=== PATIENT | female | born 1970 | race Hispanic/Latino ===

== ENCOUNTER 2018-06-21 19:52 | Emergency (ER) | payer MEDICARE ==
[~2018-06-21] VITALS: Ht 154.9 cm; Wt 60.8 kg
[~2018-06-21 19:52] MED LIST: CYMBALTA; LITHIUM; REYATAZ; TRAZADONE; TRUVADA; [UNRECOGNIZED DRUG - OTHER]
--- OUTSIDE RECORDS SUMMARY | 2018-06-21 19:55 | XMS REPORT | Continuity of Care Document ---
Author Author [facility] Address Unknown Phone Unavailable Problems Problem Status Onset Date Classification Date Reported Comments Source 789.0 - ABDOMINAL PAIN Active 06/12/2012 [facility] [place] 625.9 - FEM GENITAL SYM Active 03/31/2012 [facility] V76.12 - SCREEN MAMMOGRA Active 03/27/2012 [facility] [place] Medications Medication Details Route Status Patient Instructions Ordering Provider Order Date Source Allergies, Adverse Reactions, Alerts Substance Category Reaction Severity Reaction type Status Date Reported Comments Source Immunizations Immunization Date Given Site Status Last Updated Comments Source Results Order Name Results Value Reference Range Date Interpretation Comments Source Digital Mammo Screening Rudi MA Digital Mammo Screening Rudi MA - DIGITAL MAMMO SCREENING RUDI MA BILATERAL DIGITAL SCREENING MAMMOGRAM WITH CAD: 06/25/2013 CLINICAL: Routine. Current study was evaluated with a Computer Aided Detection (CAD) system. Comparison is made to exam dated: 03/31/2012 mammogram - [facility]. The tissue of both breasts is heterogeneously dense, which could obscure detection of small masses. No significant masses, calcifications, or other findings are seen in either breast. There has been no significant interval change. IMPRESSION: NEGATIVE There is no mammographic evidence of malignancy. A screening mammogram in one year is recommended. Dr. Martha Patino D.O. ht/penrad:06/25/2013 14:34:09 Photoresist Contact Printer: Maggie IRBY(R)(M), [facility] This exam was dictated and interpreted by [id number] for SCARLET Flannery. letter sent: Normal exam Mammogram BI-RADS: 1 Negative 06/25/2013 - - Read by: Martha Patino Dictated Date/time: 06/25/13 14:34 Electronically Signed by: Martha Patino , 06/25/13 14:34 FINAL REPORT [facility] Sy Spine sacrum AP and Lat Spine sacrum AP and Lat SACRUM SERIES CLINICAL HISTORY: Sacral pain. COMPARISON IMAGIN06/22/2013 lumbar spine radiography. FINDINGS: Two views were submitted for evaluation. Sacroiliac joints appear unremarkable. No fracture, dislocation, or radiopaque foreign body is seen. Alignment appears maintained. Soft tissues are within normal limits. IMPRESSION: No significant abnormality. 06/22/2013 - - Read by: Lambert Mario Dictated Date/time: 06/22/13 14:01 Electronically Signed by: Lambert Mario MD 06/22/13 14:01 FINAL REPORT REG[facility] Sy Spine lumbar 2 or 3 views Spine lumbar 2 or 3 views LUMBAR SPINE SERIES CLINICAL HISTORY: 721.3 COMPARISON IMAGING: None. FINDINGS: 2 views of the lumbar spine were obtained. There are no significant degenerative changes. Vertebral body heights and alignment are maintained. There is suggestion of bilateral L5 pars defects. However this cannot be confirmed without oblique views. No fracture or subluxation is seen. Soft tissues are grossly unremarkable. IMPRESSION: Suggestion of bilateral L5 pars defect. Recommend CT or MRI for further evaluation. 06/22/2013 - - Read by: Martha Patino Dictated Date/time: 06/22/13 13:49 Electronically Signed by: Martha Patino DO 06/22/13 13:50 FINAL REPORT REG[facility] Sy Vital Signs Vital Sign Value Date Comments Source Encounters Location Location Details Encounter Type Encounter Number Reason For Visit Attending Provider ADM Date DC Date Status Source OD [id number] V76.12 - SCREEN MAMMOGRA MATTHEW VAZQUEZRIA 03/31/2012 Active [place] [id number] 625.9 - FEM GENITAL SYM MATTHEW MARGO Cancel AMYD [facility] OD [id number] 789.0 - ABDOMINAL PAIN MATTHEW MARGO Cancel [facility] Procedures Procedure Code Date Perfomer Comments Source
--- OUTSIDE RECORDS SUMMARY | 2018-06-21 19:55 | XMS REPORT ---
Author Author [facility] Address Unknown Phone Unavailable Care Team Providers Care Tanbark Peeler Name Role Phone Unavailable Unavailable Payers Payer Name Policy Type Policy Number Effective Date Expiration Date Problems This patient has no known problems. Allergies, Adverse Reactions, Alerts Allergy Name Allergy Type Status Severity Reaction(s) Onset Date Inactive Date Treating Clinician Comments hydrocodone bit DA Active RI 2018-04-21 00:00:00 Penicillins DA Active RI 2018-04-21 00:00:00 morphine DA Active RI 2018-04-21 00:00:00 trimethoprim DA Active MO 2018-04-21 00:00:00 hydrocodone bit DA Active RI 2017-11-09 00:00:00 Penicillins DA Active RI 2017-11-09 00:00:00 morphine DA Active RI 2017-11-09 00:00:00 trimethoprim DA Active MO 2017-11-09 00:00:00 Medications This patient has no known medications.
[2018-06-21] MEDS ORDERED: LEVOFLOXACIN 750MG/DEXTROSE PREMIX BAG 150ML IV ONE (20:30)
[2018-06-21] MEDS ORDERED: KETOROLAC TROMETHAMINE 30 MG/ML VIAL IV STA (20:33)
[2018-06-21] MEDS ORDERED: ZOFRAN8 MG PO (23:05)
[2018-06-21] MEDS ORDERED: LEVAQUIN500 MG PO (23:05)
== END 2018-06-21 23:25 | disposition home or self-care (01) ==
LOC: ER 19:52 → FSED 23:25
DX: R30.0 Dysuria (principal); R11.2 Nausea with vomiting, unspecified; R10.9 Unspecified abdominal pain; M54.5 Low back pain; N10 Acute pyelonephritis; D64.9 Anemia, unspecified
CPT/HCPCS: 80053; 81003; 85025; 87086; 99283

== ENCOUNTER 2018-09-09 21:28 | Emergency (ER) | payer MEDICARE ==
[~2018-09-09] VITALS: Ht 154.9 cm; Wt 60.8 kg
[~2018-09-09 21:28] MED LIST changes: +LEVAQUIN500 MG PO; +ZOFRAN8 MG PO
--- OUTSIDE RECORDS SUMMARY | 2018-09-09 21:31 | XMS REPORT | Continuity of Care Document ---
Author Author [facility] Interface Address Unknown Phone Unavailable Problems Problem Status Onset Date Classification Date Reported Comments Source 789.0 - ABDOMINAL PAIN Active 06/12/2012 [facility] [place] 625.9 - FEM GENITAL SYM Active 03/31/2012 [facility] [place] V76.12 - SCREEN MAMMOGRA Active 03/27/2012 [facility] [place] Medications Medication Details Route Status Patient Instructions [...] made to exam dated: 03/31/2012 mammogram - [facility]. The tissue of both breasts is heterogeneously dense, which could obscure detection of small masses. No significant masses, calcifications, or other findings are seen in either breast. There has been no significant interval change. IMPRESSION: NEGATIVE There is no mammographic evidence of malignancy. A screening mammogram in one year is recommended. Dr. Martha Patino D.O. ht/penrad:06/25/2013 14:34:09 Permanent Mold Supervisor: Maggie IRBY(R)(M), [facility] This exam was dictated and interpreted by [id number] for SCARLET Flannery. letter sent: Normal exam Mammogram BI-RADS: 1 Negative 06/25/2013 - - Read by: Martha Patino Dictated Date/time: 06/25/13 14:34 Electronically Signed by: Martha Patino , 06/25/13 14:34 FINAL [place] Spine lumbar 2 or 3 views Spine [...] DO 06/22/13 13:50 FINAL REPORT REGINE Sy Spine sacrum AP [...] Mario MD 06/22/13 14:01 FINAL REPORT REGINE Josea Vital Signs Vital Sign Value Date Comments Source Encounters Location Location Details Encounter Type Encounter Number Reason For Visit Attending Provider ADM Date DC Date Status Source OD [id number] V76.12 - SCREEN MAMMOGRA MATTHEW VAZQUEZRIA 03/31/2012 Active AMYD [place] OD [id number] 789.0 - ABDOMINAL PAIN MATTHEW MARGO Cancel [facility] [place] OD [id number] 625.9 - FEM GENITAL SYM MATTHEW MARGO Cancel [facility] [place] Procedures Procedure Code Date Perfomer Comments Source
[2018-09-09] MEDS ORDERED: KETOROLAC TROMETHAMINE 30 MG/ML VIAL IV STA (21:50)
[2018-09-09] MEDS ORDERED: ONDANSETRON HCL INJ 2MG/ML 2ML 2 MG/ML VIAL IV STA (21:50)
[2018-09-09] MEDS ORDERED: NAPROSYN500 MG PO (21:57)
[2018-09-09] MEDS ORDERED: ONDANSETRON ODT8 MG PO (21:57)
[2018-09-09] MEDS ORDERED: SODIUM CHLORIDE 0.9% 1000ML 1,000 ML IV SCH (22:00)
[2018-09-09] MEDS ORDERED: BACTRIM DS TAB1 EACH PO (22:18)
[2018-09-09] MEDS ORDERED: CIPRO500 MG PO (22:22)
[2018-09-09] MEDS ORDERED: KEFLEX500 MG PO (22:23)
[2018-09-09] MEDS ORDERED: CEFTRIAXONE SOD 1 GM/NS 50 ML 50 ML IV ONE (22:30)
--- NOTE | 2018-09-09 22:43 | Diagnostic Imaging Report ---
EXAMINATION: CT of the abdomen and pelvis without contrast. TECHNIQUE: Spiral CT images of the abdomen and pelvis were performed from the lung bases to the lesser trochanters. No intravenous contrast was given per renal stone protocol. Coronal and sagittal reformatted images were obtained. COMPARISON: None. CLINICAL HISTORY:Body pain, can't urinate, right flank pain, nausea and vomiting DISCUSSION: ABSENCE OF INTRAVENOUS CONTRAST DECREASES SENSITIVITY FOR DETECTION OF FOCAL LESIONS AND VASCULAR PATHOLOGY. ABDOMEN/PELVIS: LOWER THORAX: Unremarkable. HEPATOBILIARY: Mild hepatomegaly, measuring 18.0 cm in the right mid clavicle line. Normal contour. No focal lesions. No intra or extrahepatic biliary ductal dilation. GALLBLADDER: Cholecystectomy clips. SPLEEN: No splenomegaly. PANCREAS: No focal masses or ductal dilatation. ADRENALS: No adrenal nodules. KIDNEYS/URETERS: No renal, ureteral or bladder calculi. No hydronephrosis or obstruction. No renal contour abnormalities or significant perinephric stranding. PELVIC ORGANS/BLADDER: Bladder is unremarkable, without focal lesions, wall thickening or bladder stones. Uterus unremarkable. No adnexal masses. PERITONEUM/RETROPERITONEUM: No free air or fluid. LYMPH NODES: No intra-abdominal,retroperitoneal, pelvic or inguinal lymphadenopathy. VESSELS: Minimal atherosclerotic calcification of the distal aorta at the bifurcation GI TRACT: No bowel dilation or evidence of obstruction. No pericolonic inflammatory changes. Appendix is well identified and normal in caliber. Stomach is unremarkable. BONES AND SOFT TISSUES: No aggressive lytic lesions. Soft tissues are grossly unremarkable. IMPRESSION: 1. No renal, ureteral or bladder calculi, hydronephrosis or obstruction. 2. Mild hepatomegaly. No focal lesions Signed by: Dr. Geronimo Ibarra M.D. on 09/09/2018 10:39 PM
== END 2018-09-09 23:12 | disposition home or self-care (01) ==
LOC: FSED 21:28
DX: M54.5 Low back pain (principal); R11.2 Nausea with vomiting, unspecified; N10 Acute pyelonephritis; B20 Human immunodeficiency virus [HIV] disease
CPT/HCPCS: 74176; 80053; 81003; 85025; 87086; 99284

== ENCOUNTER → 2019-01-09 | Outpatient (CLI) | payer MEDICARE ==
[~2019-01-09] MED LIST changes: +BACTRIM DS TAB1 EACH PO; +CIPRO500 MG PO; +KEFLEX500 MG PO; +NAPROSYN500 MG PO; +ONDANSETRON ODT8 MG PO
--- NOTE | 2019-01-09 16:33 | Diagnostic Imaging Report ---
Lumbar spine series, 5 views. History: Lumbar radiculopathy. Comparison: None available. Discussion: The paraspinal soft tissues are unremarkable. The alignment of the lumbar spine is normal. There is no evidence of fracture, spondylolisthesis, or spondylolysis. L5 spina bifida occulta is noted. Surgical clips are noted in the right upper quadrant abdomen. There is mild disc space narrowing at L5-S1. The remaining intervertebral disc spaces are within normal limits. 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 No acute lumbar spine abnormality. Signed by: Kris Belcher on 01/09/2019 4:30 PM
--- NOTE | 2019-01-09 16:35 | Diagnostic Imaging Report ---
Sacrum, 2 views. History: Lumbar radiculopathy. Findings: The soft tissues are normal. Bone mineralization is normal. There is no evidence of fracture or dislocation. There are no lytic or sclerotic lesions. The SI joints are within normal limits. IMPRESSION: Normal sacral series. Signed by: Kris Belcher on 01/09/2019 4:32 PM
== END ==
LOC: RAD 15:18
PROVIDERS: ATTEND Internal Medicine
DX: M47.27 Other spondylosis with radiculopathy, lumbosacral region (principal)
CPT/HCPCS: 72110; 72220

== ENCOUNTER 2019-04-25 22:16 | Emergency (ER) | payer MEDICARE ==
[~2019-04-25] VITALS: Ht 154.9 cm; Wt 60.8 kg
--- NOTE | 2019-04-25 23:46 | Diagnostic Imaging Report ---
EXAMINATION: CHEST 2 VIEWS INDICATION: Cough, throat pain COMPARISON: None FINDINGS: PA and lateral views TUBES and LINES: None. LUNGS: Lungs are well inflated. Lungs are clear. No consolidations. Mild central bronchial wall thickening. PLEURA: No pleural effusion or pneumothorax. HEART AND MEDIASTINUM: The cardiomediastinal silhouette is unremarkable. BONES AND SOFT TISSUES: No acute osseous lesion. Soft tissues are unremarkable. UPPER ABDOMEN: No free air under the diaphragm. Cholecystectomy clips in the right upper quadrant. IMPRESSION: Findings can be seen with bronchitis. Signed by: Will Yen DO on 04/25/2019 11:43 PM
--- NOTE | 2019-04-25 23:47 | Diagnostic Imaging Report ---
X-RAY SOFT TISSUE NECK-2 VIEWS HISTORY: Pain. COMPARISON: None. FINDINGS: Airway: Patent. Retropharyngeal soft tissues: Not thickened. Epiglottis: Not thickened. Adenoids: Within normal limits. Superficial neck soft tissues: Normal. Osseous structures: No fractures or dislocations. Upper thorax: The upper lungs and upper mediastinum are within normal limits. No foreign body identified. IMPRESSION: No acute radiographic abnormality. Signed by: Will Yen DO on 04/25/2019 11:44 PM
[2019-04-26 00:04] VITALS: BP 139/87
[2019-04-26] MEDS ORDERED: ONDANSETRON HCL 4 MG ORAL DISINTEGRATING TAB ONE (00:08)
[2019-04-26] MEDS ORDERED: ONDANSETRON HCL 4 MG ORAL DISINTEGRATING TAB PO ONE (00:15)
== END 2019-04-26 00:12 | disposition home or self-care (01) ==
LOC: ER 22:16
DX: J20.9 Acute bronchitis, unspecified (principal); Z21 Asymptomatic human immunodeficiency virus [HIV] infection status; F43.10 Post-traumatic stress disorder, unspecified; F17.200 Nicotine dependence, unspecified, uncomplicated; Z88.6 Allergy status to analgesic agent; Z88.3 Allergy status to other anti-infective agents; Z88.5 Allergy status to narcotic agent; Z88.0 Allergy status to penicillin; Z88.2 Allergy status to sulfonamides
CPT/HCPCS: 70360; 71046; 99283; Q0162

== ENCOUNTER 2020-02-09 16:35 | Emergency (ER) | payer MEDICARE, OTHER ==
[~2020-02-09] VITALS: Ht 154.9 cm; Wt 60.8 kg
--- NOTE | 2020-02-09 17:03 | Emergency Department Note ---
History of Present Illnes History of Present Illness Chief Complaint: Genitourinary History of Present Illness This is a 49 year old female Chief Complaint Comment small drops of urine passing. see's dr nance (urologist?) pt states last bm yesterday. pt states hx of urine retention and kidney stones. states sent by her urologist. pt states n/v. vomitting today 1 episode. burning with urination hiv +. Arrival Mode: Car Bridge Tender Required: No Onset (how long ago): week(s) (1) Location: Bladder Quality: Fullness Radiation: Reports non-radiation Severity: moderate Onset quality: gradual Duration (how long): week(s) Timing of current episode: constant Progression: worsening Chronicity: recurrent Context: Denies recent illness Relieving factors: none Exacerbating factors: none Associated symptoms: Reports denies other symptoms Past Medical/Family History Physician Review I have reviewed the patient's past medical and family history. Any updates have been documented here. Past Medical History Recent Fever: No Clinical Suspicion of Infectio: No New/Unexplained Change in Ment: No Past Medical History: UTI's, HIV, Other Mental Illness Other Medical History: HIV PTSD Past Surgical History: Other Surgery: LITHOTRIPSY, COLON BIOPSY, X3 Other Last Tetanus: UTD Review of Systems Review of Systems Constitutional: Reports no symptoms EENTM: Reports no symptoms Cardiovascular: Reports no symptoms Respiratory: Reports no symptoms Gastrointestinal: Reports no symptoms Genitourinary: Reports as per HPI, Reports frequency, Reports other (Difficulty urinating) Musculoskeletal: Reports no symptoms Integumentary: Reports no symptoms Neurological: Reports no symptoms Psychological: Reports no symptoms Endocrine: Reports no symptoms Hematological/Lymphatic: Reports no symptoms Physical Exam Related Data Allergies: Coded Allergies: acetaminophen (Verified Allergy, Severe, HIVES, 07/20/19) hydrocodone (Verified Allergy, Severe, HIVES, 07/20/19) metronidazole (Verified Allergy, Intermediate, 07/20/19) sulfamethoxazole (Verified Allergy, Intermediate, 07/20/19) trimethoprim (Verified Allergy, Intermediate, 07/20/19) Penicillins (Verified Allergy, Unknown, 07/20/19) morphine (Verified Adverse Reaction, Unknown, VOMITING, CONSTIPATION, 07/20/19) Triage Vital Signs Vital Signs Date Time Temp Pulse Resp B/P (MAP) Pulse Ox O2 Delivery O2 Flow Rate FiO2 8/18/20 16:54 98.8 82 18 115/64 100 Room Air Vital signs reviewed: Yes Physical Exam CONSTITUTIONAL Constitutional: Present well-developed, Present well-nourished HENT HENT: Present normocephalic, Present atraumatic, Present oropharynx rell ar/moist, Present nose normal HENT L/R: Present left ext ear normal, Present right ext ear normal EYES Eyes: Reports PERRL, Reports conjunctivae normal NECK Neck: Present ROM normal PULMONARY Pulmonary: Present effort normal, Present breath sounds normal CARDIOVASCULAR Cardiovascular: Present regular rhythm, Present heart sounds normal, Present capillary refill normal, Present normal rate GASTROINTESTINAL Abdominal: Present soft, Present nontender, Present bowel sounds normal GENITOURINARY Genitourinary: Present exam deferred SKIN Skin: Present warm, Present dry MUSCULOSKELETAL Musculoskeletal: Present ROM normal NEUROLOGICAL Neurological: Present alert, Present oriented x 3, Present no gross motor or sensory deficits PSYCHOLOGICAL Psychological: Present mood/affect normal, Present judgement normal Results Laboratory Lab results reviewed: Yes Assessment & Plan Medical Decision Making MDM 49 y.o F presents for difficulty urinating. Patient able to void, VSS wihtin acceptable limits. UA shows UTI and will treat with omnicef. She has an appointment with her Urologist. She will f/u w/ Urology or return to ED for new/worsening symptoms. patient appropriate for DC. Reassessment Reassessment time: 07:34 Reassessment Well appearing, NAD Assessment & Plan Final Impression: (1) UTI (urinary tract infection) Depart Disposition: HOME, SELF-CARE Last Vital Signs Date Time Temp Pulse Resp B/P (MAP) Pulse Ox O2 Delivery O2 Flow Rate FiO2 02/09/20 16:54 98.8 82 18 115/64 100 Room Air Home Meds Active Scripts Ondansetron (ONDANSETRON ODT) 8 Mg Tab.rapdis, 4 MG PO TID PRN for NAUSEA for 3 Days, #10 Prov:YOBANI OWENS MD 09/09/18 Naproxen (NAPROSYN) 500 Mg Tablet, 1 TAB PO BID PRN for PAIN for 7 Days, #14 Prov:YOBANI OWENS MD 09/09/18 Ondansetron Hcl (ZOFRAN) 8 Mg Tablet, 8 MG PO Q8H PRN for NAUSEA AND VOMITING, #12 TBS 0 Refills Prov:LEONID UQEZADA MD 06/21/18 Levofloxacin (LEVAQUIN) 500 Mg Tablet, 750 MG PO DAILY, #7 TAB 0 Refills Prov:LEONID QUEZADA MD 06/21/18 Reported Medications [Reyataz] No Conflict Check 04/16/12 [Novir] No Conflict Check 04/16/12 [Truvada] No Conflict Check 04/16/12 [Trazadone] No Conflict Check 04/16/12 [Cymbalta] No Conflict Check 04/16/12 [Erlanger] No Conflict Check 04/16/12 Discontinued Scripts Ciprofloxacin Hcl (CIPRO) 500 Mg Tablet, 500 MG PO BID for 7 Days, #14 MG 0 Refills Prov:MELLISA TOBIN MD 02/09/20 MELLISA TOBIN MD Feb 09, 2020 17:02
[2020-02-09 17:31] LABS: BASOPHILS % 0.5 % (0.0-1.0); EOSINOPHILS # (AUTO) 0.3 (0.0-0.4); EOSINOPHILS % 5.2 % (0.0-6.0); HEMATOCRIT 34.1 % (34.2-44.1); HEMOGLOBIN 11.3 g/dL (12.0-16.0); LYMPHOCYTES # (AUTO) 1.5 (1.0-3.2); LYMPHOCYTES % 24.5 % (18.0-39.1); MEAN CORPUSCULAR HEMOGLOBIN 29.6 pg (28-32); MEAN CORPUSCULAR HGB CONC 33.1 g/dL (31-35); MEAN CORPUSCULAR VOLUME 89.3 fL (81-99); MONOCYTES # (AUTO) 0.3 (0.2-0.8); MONOCYTES % 5.5 % (4.4-11.3); NEUTROPHILS # (AUTO) 3.8 (2.1-6.9); NEUTROPHILS % 63.8 % (38.7-80.0); PLATELET COUNT 334 x10e3/uL (140-360); RED BLOOD COUNT 3.82 x10e6/uL (3.6-5.1); RED CELL DISTRIBUTION WIDTH 13.9 % (11.7-14.4)
[2020-02-09 17:49] LABS: CLARITY,URINE SL CLOUDY (CLEAR); COLOR,URINE YELLOW (YELLOW); NITRITE,URINE NEGATIVE (NEGATIVE)
[2020-02-09 17:50] LABS: BILIRUBIN,URINE NEGATIVE (NEGATIVE); KETONES,URINE NEGATIVE (NEGATIVE); LEUKOCYTE ESTERASE ,URINE MODERATE (NEGATIVE); PROTEIN,URINE DIPSTICK NEGATIVE (NEGATIVE); URINE UROBILINOGEN 0.2 mg/dL (0.2 - 1)
[2020-02-09 17:54] LABS: ALANINE AMINOTRANSFERASE 37 IU/L (0-55); ALBUMIN 4.2 g/dL (3.5-5.0); ALKALINE PHOSPHATASE 132 IU/L (40-150); ANION GAP 15.1 mmol/L (8-16); BLOOD UREA NITROGEN 20 mg/dL (7-26); BUN/CREATININE RATIO 24 (6-25); CALCIUM 9.8 mg/dL (8.4-10.2); CARBON DIOXIDE 24 mmol/L (22-29); CHLORIDE 103 mmol/L (98-107); CREATININE, SERUM 0.83 mg/dL (0.57-1.11); EST GLOMERULAR FILTRATION RATE > 60 ML/MIN (60-); GLUCOSE 89 mg/dL (74-118); POTASSIUM 4.1 mmol/L (3.5-5.1); SODIUM 138 mmol/L (136-145)
[2020-02-09 17:59] LABS: BACTERIA,URINE MODERATE /HPF; EPITHELIAL CELLS,URINE FEW /LPF; TRANSITIONAL EPI CELLS,URINE FEW; WBC,URINE (MAN) >50 /HPF (0-5)
[2020-02-09] MEDS ORDERED: KEFLEX500 MG PO (18:06)
[2020-02-09] MEDS ORDERED: CIPRO500 MG PO (18:08)
--- OUTSIDE RECORDS SUMMARY | 2020-02-09 18:53 | XMS REPORT | Continuity of Care Document ---
Author Author [facility] Address Unknown Phone Unavailable Care Team Providers Care Consulting Application Engineer Name Role Phone [employer] Unavailable Un available Problems Problem Status Onset Date Classification Date Reported Comments Source 789.0 - ABDOMINAL PAIN Active 06/12/2012 [facility] [place] 625.9 - FEM GENITAL SYM Active 03/31/2012 [facility] [place] V76.12 - SCREEN MAMMOGRA Active 03/27/2012 [facility] [place] Medications No Data Provided for This Section Allergies, Adverse Reactions, Alerts No Known Medication Allergies Immunizations No Data Provided for This Section Results No Data Provided for This Section Pathology Reports No Data Provided for This Section Diagnostic Reports Report Value Date Source Digital Mammo Screening Rudi MA - DIGITAL MAMMO SCREENING RUDI MA BILATERAL DIGITAL SCREENING MAMMOGRAM WITH CAD: 06/25/2013 CLINICAL: Routine. Current study was evaluated with a Computer Aided Detection (CAD) system. Comparison is made to exam dated: 03/31/2012 mammogram - [facility]. The tissue of both breasts is heterogeneously dense, which could obscure detection of small masses. No significant masses, calcifications, or other findings are seen in either breast. There has been no significant interval change. IMPRESSION: NEGATIVE There is no mammographic evidence of malignancy. A screening mammogram in one year is recommended. Dr. Martha Patino D.O. ht/penrad:06/25/2013 14:34:09 Diamond Cleaver: Maggie Ba RT(R)(M), [facility] This exam was dictated and interpreted by [id number] for SCARLET Flannery. letter sent: Normal exam Mammogram BI-RADS: 1 Negative 06/25/2013 SCARLET Sy Spine lumbar 2 or 3 views LUMB AR SPINE SERIES CLINICAL HISTORY: 721.3 COMPARISON IMAGING: None. FINDINGS: 2 views of the lumbar spine were obtaine d. There are no significant degenerative changes. Vertebral body heights and alignment are maintained. There is suggestion of bilateral L5 pars defects. However this cannot be confirmed without oblique views. No fracture or subluxation is seen. Soft tissues are grossly unremarkable. IMPRESSION: Suggestion of bilateral L5 pars defect. Recommend CT or MRI for further evaluation. 06/22/2013 [facility] [place] Spine sacrum AP and Lat SACRUM SERIES CLINICAL HISTORY: Sacral pain. COMPARISON IMAGIN06/22/2013 lumbar spine radiography. FINDINGS: Two views were submitted for evaluation. Sacroiliac joints appear unremarkable. No fracture, dislocation, or radiopaque foreign body is seen. Alignment appears maintained. Soft tissues are within normal limits. IMPRESSION: No significant abnormality. 06/22/2013 [facility] [place] Consultation Notes No Data Provided for This Section Discharge Summaries No Data Provided for This Section History and Physicals No Data Provided for This Section Vital Signs No Data Provided for This Section Encounters Location Location Details Encounter Type Encounter Number Reason For Visit Attending Provider ADM Date DC Date Status Source OD [id number] V76.12 - SCREEN MAMMOGRA MATTHEW MARGO 03/31/2012 Active [facility] [place] OD [id number] 625.9 - FEM GENITAL SYM MATTHEW MARGO Cancel [facility] [place] OD [id number] 789.0 - ABDOMINAL PAIN MATTHEW MARGO Cancel [facility] [place] Procedures No Data Provided for This Section Assessment and Plan No Data Provided for This Section Plan of Care No Data Provided for This Section Social History No Data Provided for This Section Family History No Data Provided for This Section Advance Directives No Data Provided for This Section Functional Status No Data Provided for This Section
--- OUTSIDE RECORDS SUMMARY | 2020-02-09 18:54 | XMS REPORT | Continuity of Care Document ---
Author Author [facility] t Organization [facility] Address [address] [place] [address] Phone Unavailable Care Team Providers Care Public Health Professor Name Role Phone Wale RECIO MD PCP EV RECINOS Attphys Unavailable Wale RECIO Attphys Unavailable Rodolfo OWENS Attphys Unavailable Payers Payer Name Policy Type Policy Number Effective Date Expiration Date S kesha Care Improvement Plus [id number] 2017 00:00:00 [facility] Hmo [id number] I [facility] [id number] 2017 00:00:00 [facility] Problems Condition Name Condition Details Condition Category Status Onset Date Resolution Date Last Treatment Date Treating Clinician Comments Source 789.0 - ABDOMINAL PAIN 789. 0 - ABDOMINAL PAIN Active 06/12/2012 [facility] [place] Diagnosis Active 2012-06-12 00:01:00 2012-08-20 11:53:00 [facility] 625.9 - FEM GENITAL SYM 625. 9 - FEM GENITAL SYM Active 03/31/2012 [facility] [place] Diagnosis Active 2012-03-31 00:01:00 2012-05-16 15:34:00 [facility] V76.12 - SCREEN MAMMOGRA V76. 12 - SCREEN MAMMOGRA Active 03/27/2012 [facility] [place] Diagnosis Active 2012-03-27 00:01:00 2012-03-31 14:55:00 [facility] Allergies, Adverse Reactions, Alerts Allergy Name Allergy Type Status Severity Reaction(s) Onset Date Inacti ve Date Treating Clinician Comments Source Penicillins DA Active 2019-07-22 00:00:00 [facility] morphine DA Active U 2019-07-22 00:00:00 [facility] hydrocodone DA Active 2019-07-22 00:00:00 [facility] acetaminophen DA Active 2019-07-22 00:00:00 [facility] sulfamethoxazole DA Active U 2019-07-22 00:00:00 [facility] trimethoprim DA Active U 2019-07-22 00:00:00 [facility] Penicillin Allergy to Substance Active 2019-07-20 00:00:00 [facility] Morphine Propensity to adverse reactions Active VOMI TING, CONSTIPATION 2019-07-20 00:00:00 [facility] Hydrocodone Allergy to Substance Active Severe HIVES 2019-07-20 00:00:00 [facility] Acetaminophen Allergy to Substance Active Severe HIVES 2019-07-20 00 :00:00 [facility] Sulfamethoxazole Allergy to Substance Active Moderate 2019-06-25 7 00:00:00 [facility] Trimethoprim Allergy to Substance Active Moderate 2019-07-20 00:00 :00 [facility] Metronidazole Allergy to Substance Active Moderate 2019-07-20 00:0 0:00 [facility] nitrofurantoin DA Active LA 2019-05-26 00:00:00 [facility] hydrocodone bit DA Active [place] 2019-04-13 00:00:00 [facility] Penicillins DA Active [place] 2019-04-13 00:00:00 [facility] morphine DA Active [place] 2019-04-13 00:00:00 [facility] trimethoprim DA Active [place] 2019-04-13 00:00:00 [facility] hydrocodone bit DA Active [place] 2018-04-21 00:00:00 [facility] Penicillins DA Active [place] 2018-04-21 00:00:00 [facility] morphine DA Active [place] 2018-04-21 00:00:00 [facility] trimethoprim DA Active [place] 2018-04-21 00:00:00 [facility] hydrocodone DA Active [place] 2017-12-15 00:00:00 [facility] acetaminophen DA Active [place] 2017-12-15 00:00:00 [facility] sulfamethoxazole DA Active [place] 2017-12-15 00:00:00 [facility] Penicillins DA Active [place] 2017-12-15 00:00:00 [facility] trimethoprim DA Active [place] 2017-12-15 00:00:00 [facility] hydrocodone bit DA Active [place] 2017-11-09 00:00:00 [facility] Penicillins DA Active [place] 2017-11-09 00:00:00 [facility] morphine DA Active [place] 2017-11-09 00:00:00 [facility] trimethoprim DA Active [place] 2017-11-09 00:00:00 [facility] Medications Ordered Medication Name Filled Medication Name Start Date Stop Da te Current Medication? Ordering Clinician Indication Dosage Frequency Signature (SIG) Comments Components Source Cephalexin Monohydrate (Keflex) 500 Mg Capsule Cephale ronn Monohydrate (Keflex) 500 Mg Capsule 2018-09-09 00:00:00 Yes Yobani Owens [facility] 500 Three Times A Day [facility] Naproxen (Naprosyn) 500 Mg Tablet Naproxen (Naprosyn) 500 Mg Tablet 2018-09-09 00:00:00 Yes Yobani Owens Md 1 Twice A Day as needed for Pain [facility] Ondansetron (Ondansetron Odt) 8 Mg Tab.rapdis Ondanset john (Ondansetron Odt) 8 Mg Tab.rapdis 2018-09-09 00:00:00 Yes Yobani Owens Md 4 Three Times A Day as needed for Nausea [facility] Sulfamethoxazole/Trimethoprim (Bactrim Ds Tablet) 1 Ea ch Tablet, 1 Each Oral Sulfamethoxazole/Trimethoprim (Bactrim Ds Tablet) 1 Each Tablet, 1 Each Oral 2018-09-09 00:00:00 2018-09-09 00:00:00 No Yobani Owens Md 1 Twice A Day [facility] Levofloxacin (Levaquin) 500 Mg Tablet Levofloxacin (Levaquin ) 500 Mg Tablet 2018-06-21 00:00:00 Yes Main Harden Md [address] [facility] Ondansetron Hcl (Zofran) 8 Mg Tablet Ondansetron Hcl (Zofran ) 8 Mg Tablet 2018-06-21 00:00:00 Yes Main Harden [facility] 8 Every 8 Hours as needed for Nausea And Vomiting [facility] Cymbalta [facility] Yes [facility] [place] Yes [facility] Novir Novir Yes [facility] Reyataz Reyataz Yes [facility] Trazadone Trazadone Yes [facility] Truvada Truvada Yes [facility] Procedures Procedure Date / Time Performed Performing Clinician [facility] e Computed tomography of abdomen and pelvis with contrast 2019 00:00:00 EV RECINOS [facility] X-ray of chest, two views 2019-04-25 00:00:00 EV RECINOS CH I [facility] Encounters Start Date/Time End Date/Time Encounter Type Admission Type Attendi [facility] Care Department Encounter ID Source 2019-07-20 11:36:00 2019-07-20 16:50:00 Departed Emergency Room 1 EV RECINOS [facility] [id number] [facility] 2019-04-25 22:16:00 2019-04-26 00:12:00 Departed Emergency Room 1 EV RECINOS [facility] [id number] [facility] 2019-01-09 15:18:00 2019-01-09 15:18:00 Registered Clinic 3 KITTY CRUZ [facility] [id number] [facility] 2018-09-09 21:28:00 2018-09-09 23:12:00 Departed Emergency Room 1 YOBANI OWENS [facility] [id number] [facility] 2018-06-21 19:52:00 2018-06-21 23:25:00 Departed Emergency Room [facility] [id number] [facility] Results Test Description Test Time Test Comments Results Result Comments Source STREPTOCOCCUS PCR SCREEN 2019-07-22 17:08:00 Test Item STREPTOCOCCUS DYSGALACTIAE (test code = STREPGC) NEGATIVE FOR G/C N EGATIVE STREPA MOLECULAR (test code = STREPAMOL) NEGATIVE FOR GRP A NEGATIV E - CT ABD PELVIS [id number] 16:20:00 Name: PRASANNA DAMIAN [facility] : 1970 Age/S: 49 / F [address] [facility] Unit #: [id number] Loc: [place] [address] Phys: Brandie Sher PAPER SPOOLER Acct: [id number] Dis Date: Status: REG ER PHONE #: [phone] Exam Date: 07/22/2019 [facility] FAX #: [phone] Reason: diffuse abdominal pain EXAMS: CPT CODE: [id number] CT ABD PELVIS W/CONT [id number] EXAM: CT of the abdomen and pelvis with contrast; INFORMATION: Diffuse abdominal pain; TECHNIQUE AND FINDINGS: CT dose reduction protocol; 2.5 mm axial scans. The liver is moderately enlarged and shows slightly decreased attenuation; no focal lesions. Status post cholecystectomy; no biliary dilatation. Pancreas, spleen, adrenal glands and kidneys are unremarkable; no hydronephrosis. No acute bowel abnormalities. No pelvic mass lesions. Lung bases are clear. IMPRESSION: 1. No acute abdominal or pelvic abnormalities. 2. Mild hepatomegaly and fatty infiltration of the liver. Location code: [facility] at 1620 Reported and signed by: Anthony Rice M.D. CC: Brandie Sher NP Technologist:Brina Nguyen RT(R); CRISTO Conroy CTDI: DLP: Trnscb Date/Time: 07/22/2019 (1619) [email or web address] Orig Print D/T: S: 07/22/2019 (7432) PAGE 1 Signed Report BASIC METABOLIC [id number] 15:17:00* Test Item Value Reference Range Interpretation Comments SODIUM (test code = NA) 136 mmol/L 136-145 N POTASSIUM (test code = K) 3.9 mmol/L 3.5-5.1 N CHLORIDE (test code = CL) 102.0 mmol/L 98-107 N CARBON DIOXIDE (test code = CO2) 28.0 mmol/L 21-32 N ANION GAP (test code = GAP) 9.9 10-20 L GLUCOSE (test code = GLU) 87 mg/dL 74-106 N BLOOD UREA NITROGEN (test code = BUN) 10 mg/dL 7-18 N GLOMERULAR FILTRATION RATE (test code = GFR) > 60 mL/min >=60 Estimated GFR by using Modified MDRD formula.Chronic kidney disease is defined as either kidney damageor GFR <60 mL/min/1.73 m2 for >3 months. CREATININE (test code = CREAT) 0.70 mg/dL 0.55-1.02 N Note change in reference range due to change in reagent. BUN/CREATININE RATIO (test code = BUN/CREA) 14.3 10-20 N CALCIUM (test code = CA) 9.3 mg/dL 8.5-10.1 N HEPATIC FUNCTION [id number] 15:17:00* Test Item Value Reference Range Interpretation Comments TOTAL PROTEIN (test code = PROT) 9.7 gram/dL 6.4-8.2 H ALBUMIN (test code = ALB) 4.3 g/dL 3.4-5.0 N GLOBULIN (test code = GLOB) 5.4 gram/dL 2.7-4.2 H ALBUMIN/GLOBULIN RATIO (test code = A/G) 0.8 0.75-1.50 N BILIRUBIN TOTAL (test code = BILT) 0.40 mg/dL 0.0-1.0 N BILIRUBIN DIRECT (test code = BILD) 0.11 mg/dL 0.0-0.20 N SGOT/AST (test code = AST) 116 IUnit/L 15-37 H SGPT/ALT (test code = ALT) 176 IUnit/L 12-78 H ALKALINE PHOSPHATASE TOTAL (test code = ALKP) 174 IUnit/L 45-117 H Note change in reference range due to change in reagent. [id number] 15:17:00* Test Item Value Reference Range Interpretation Comments LIPASE (test code = LIP) 191 U/L 73.0-393.0 N HCG SERUM [id number] 15:17:00* Test Item Value Reference Range Interpretation Comments HCG SERUM QUAL (test code = HCGQL) NEGATIVE NEGATIVE This HCGQL test is NOT applicable for MALE patients.Check with nurse about probable order error.If Tumor Marker Test needed, nurse should order test "HCGTU"(Test #550.38731) [id number] 15:17:00* Test Item Value Reference Range Interpretation Comments TROPONIN-I (test code = TROPI) <0.015 ng/mL 0-0.045 N BASIC METABOLIC [id number] 14:55:00* Test Item Value Reference Range Interpretation Comments SODIUM (test code = NA) mmol/L 136-145 POTASSIUM (test code = K) mmol/L 3.5-5.1 CHLORIDE (test code = CL) mmol/L 98-107 CARBON DIOXIDE (test code = CO2) mmol/L 21-32 ANION GAP (test code = GAP) 10-20 GLUCOSE (test code = GLU) mg/dL 74-106 BLOOD UREA NITROGEN (test code = BUN) mg/dL 7-18 GLOMERULAR FILTRATION RATE (test code = GFR) mL/min >=60 CREATININE (test code = CREAT) mg/dL 0.55-1.02 BUN/CREATININE RATIO (test code = BUN/CREA) 10-20 CALCIUM (test code = CA) mg/dL 8.5-10.1 HEPATIC FUNCTION [id number] 14:55:00* Test Item Value Reference Range Interpretation Comments TOTAL PROTEIN (test code = PROT) gram/dL 6.4-8.2 ALBUMIN (test code = ALB) g/dL 3.4-5.0 GLOBULIN (test code = GLOB) gram/dL 2.7-4.2 ALBUMIN/GLOBULIN RATIO (test code = A/G) 0.75-1.50 BILIRUBIN TOTAL (test code = BILT) mg/dL 0.0-1.0 BILIRUBIN DIRECT (test code = BILD) mg/dL 0.0-0.20 SGOT/AST (test code = AST) IUnit/L 15-37 SGPT/ALT (test code = ALT) IUnit/L 12-78 ALKALINE PHOSPHATASE TOTAL (test code = ALKP) IUnit/L 45-117 [id number] 14:55:00* Test Item Value Reference Range Interpretation Comments LIPASE (test code = LIP) U/L 73.0-393.0 HCG SERUM [id number] 14:55:00* Test Item Value Reference Range Interpretation Comments HCG SERUM QUAL (test code = HCGQL) NEGATIVE NEGATIVE This HCGQL test is NOT applicable for MALE patients.Check with nurse about probable order error.If Tumor Marker Test needed, nurse should order test "HCGTU"(Test #550.79332) [id number] 14:55:00* Test Item Value Reference Range Interpretation Comments TROPONIN-I (test code = TROPI) ng/mL 0-0.045 BASIC METABOLIC [id number] 14:55:00* Test Item Value Reference Range Interpretation Comments SODIUM (test code = NA) 136 mmol/L 136-145 N POTASSIUM (test code = K) 3.9 mmol/L 3.5-5.1 N CHLORIDE (test code = CL) 102.0 mmol/L 98-107 N CARBON DIOXIDE (test code = CO2) mmol/L 21-32 ANION GAP (test code = GAP) 10-20 GLUCOSE (test code = GLU) mg/dL 74-106 BLOOD UREA NITROGEN (test code = BUN) mg/dL 7-18 GLOMERULAR FILTRATION RATE (test code = GFR) mL/min >=60 CREATININE (test code = CREAT) mg/dL 0.55-1.02 BUN/CREATININE RATIO (test code = BUN/CREA) 10-20 CALCIUM (test code = CA) mg/dL 8.5-10.1 HEPATIC FUNCTION [id number] 14:55:00* Test Item Value Reference Range Interpretation Comments TOTAL PROTEIN (test code = PROT) gram/dL 6.4-8.2 ALBUMIN (test code = ALB) g/dL 3.4-5.0 GLOBULIN (test code = GLOB) gram/dL 2.7-4.2 ALBUMIN/GLOBULIN RATIO (test code = A/G) 0.75-1.50 BILIRUBIN TOTAL (test code = BILT) mg/dL 0.0-1.0 BILIRUBIN DIRECT (test code = BILD) mg/dL 0.0-0.20 SGOT/AST (test code = AST) IUnit/L 15-37 SGPT/ALT (test code = ALT) IUnit/L 12-78 ALKALINE PHOSPHATASE TOTAL (test code = ALKP) IUnit/L 45-117 [id number] 14:55:00* Test Item Value Reference Range Interpretation Comments LIPASE (test code = LIP) U/L 73.0-393.0 HCG SERUM [id number] 14:55:00* Test Item Value Reference Range Interpretation Comments HCG SERUM QUAL (test code = HCGQL) NEGATIVE NEGATIVE This HCGQL test is NOT applicable for MALE patients.Check with nurse about probable order error.If Tumor Marker Test needed, nurse should order test "HCGTU"(Test #550.42124) [id number] 14:55:00* Test Item Value Reference Range Interpretation Comments TROPONIN-I (test code = TROPI) ng/mL 0-0.045 MONO [id number] 14:53:00* Test Item Value Reference Range Interpretation Comments MONO SCREEN (test code = MONO) POSITIVE NEGATIVE A URINALYSIS [id number] 14:52:00* Test Item Value Reference Range Interpretation Comments UA COLOR (test code = COLU) Light-Yellow YELLOW UA APPEARANCE (test code = APPU) CLEAR CLEAR UA GLUCOSE DIPSTICK (test code = DGLUU) NEGATIVE mg/dL NEGATIVE UA BILIRUBIN DIPSTICK (test code = BILU) NEGATIVE mg/dL NEGATIVE UA KETONE DIPSTICK (test code = KETU) NEGATIVE mg/dL NEGATIVE UA SPECIFIC GRAVITY (test code = SGU) 1.008 1.001-1.035 UA BLOOD DIPSTICK (test code = DMITRIY) Negative mg/dL NEGATIVE UA PH DIPSTICK (test code = DEEPIKA) 6.5 5.0-8.0 UA PROTEIN DIPSTICK (test code = PROU) NEGATIVE mg/dL NEGATIVE UA UROBILINIOGEN DIPSTICK (test code = URO) Normal mg/dL NEGATIVE UA NITRITE DIPSTICK (test code = HARVINDER) NEGATIVE NEGATIVE UA LEUKOCYTE ESTERASE W REFLEX (test code = LEUUR) NEGATIVE Chao/uL NEGATIVE UA WBC (test code = WBCU) NONE SEEN per HPF 0-5 UA RBC (test code = RBCU) NONE SEEN per HPF 0-5 UA EPITHELIAL CELLS (test code = EPIU) None seen per HPF Few UA BACTERIA (test code = BACU) NONE SEEN per HPF NONE Urine Source? Clean CatchURINALYSIS [id number] 14:51:00* Test Item Value Reference Range Interpretation Comments UA COLOR (test code = COLU) Light-Yellow YELLOW UA APPEARANCE (test code = APPU) CLEAR CLEAR UA GLUCOSE DIPSTICK (test code = DGLUU) NEGATIVE mg/dL NEGATIVE UA BILIRUBIN DIPSTICK (test code = BILU) NEGATIVE mg/dL NEGATIVE UA KETONE DIPSTICK (test code = KETU) NEGATIVE mg/dL NEGATIVE UA SPECIFIC GRAVITY (test code = SGU) 1.008 1.001-1.035 UA BLOOD DIPSTICK (test code = DMITRIY) Negative mg/dL NEGATIVE UA PH DIPSTICK (test code = DEEPIKA) 6.5 5.0-8.0 UA PROTEIN DIPSTICK (test code = PROU) NEGATIVE mg/dL NEGATIVE UA UROBILINIOGEN DIPSTICK (test code = URO) Normal mg/dL NEGATIVE UA NITRITE DIPSTICK (test code = HARVINDER) NEGATIVE NEGATIVE UA LEUKOCYTE ESTERASE W REFLEX (test code = LEUUR) NEGATIVE Chao/uL NEGATIVE UA WBC (test code = WBCU) per HPF 0-5 UA RBC (test code = RBCU) per HPF 0-5 UA EPITHELIAL CELLS (test code = EPIU) per HPF Few UA BACTERIA (test code = BACU) per HPF NONE Urine Source? Clean CatchCBC W/O [id number] 14:49:00* Test Item Value Reference Range Interpretation Comments WHITE BLOOD CELL (test code = WBC) 2.9 K/mm3 4.5-12.5 L RED BLOOD CELL (test code = RBC) 4.77 mill/mm3 3.7-5.2 N HEMOGLOBIN (test code = HGB) 13.5 gram/dL 11.5-15.5 N HEMATOCRIT (test code = HCT) 40.9 % 36.0-46.0 N MEAN CELL VOLUME (test code = MCV) 85.7 fL 80-98 N MEAN CELL HGB (test code = MCH) 28.3 picogram 27.0-33.0 N MEAN CELL HGB CONCETRATION (test code = MCHC) 33.0 gram/dL 33.0-36. 0 N RED CELL DISTRIBUTION WIDTH (test code = RDW) 12.7 % 11.6-16. 2 N PLATELET COUNT (test code = PLT) 210 K/mm3 150-450 N MEAN PLATELET VOLUME (test code = MPV) 10.5 fL 6.7-11.0 N - XR CHEST 1 [id number] 12:48:00 FAX: Brandie Sher NP [place]: B St: PRE Name: PRASANNA KAM [facility] : [birth year] Age/S: 49/F Jennifer [facility]wood Unit #: [id number] Loc: [place] [address] Phys: Brandie Sher NP Acct: [id number] Dis Date: Status: PRE ER PHONE #: [phone] Exam Date: 07/22/2019 1243 FAX #: [phone] Reason: Abdominal Pain EXAMS: CPT CODE: [id number] XR CHEST 1 V 48555 REASON FOR EXAM: Abdominal Pain Exam Order Date: 07/22/2019 12:31 PM Ordering M .DYuki: Brandie Sher NP PROCEDURE: - XR CHEST 1 V COMP ARISON: None FINDINGS: The lungs are clear. There is no p leural effusion or pneumothorax. Pulmonary vascularity is within normal li mits. Cardiomediastinal silhouette is normal in size for technique . The mediastinal contours are within normal limits. Musculo skeletal structures are within normal limits. Prior cholecystectom y. IMPRESSION: No acute cardiopulmonary process. Location: [facility] at 5781 Reported and signed by: Gilbert Orozco MD CC: Brandie Sher NP Technologist: RT OLEKSANDR(Rodolfo) Trnjamie Moreira ate/Time/By: 07/22/2019 (9792) : By: [email or web address] Orig Print D/T: S: 06/25 (9291) PAGE [address] ABDOMEN/PELVIS [id number] 16:11:00 [place] [address] Patient Name: PRASANNA DAMIAN MR #: [id number] : 1970 Age/Sex: 49/F Req #: [id number] Adm Physician: Ordered by: EV RECINOS DO Report #: [id number] Location: ER Room/Bed: Procedure: 0127-[address]/CT ABDOMEN/PELVIS W Exam Date: Exam Time: REPORT STATUS: Signed EXAM: CT Abd omen and Pelvis WITH intravenous contrast INDICATION: Abdominal pain COMPARISON: CT abdomen and pelvis of 09/09/2018 TECHNIQUE: Abdomen and pelv is were scanned utilizing a multidetector helical scanner from the lung base t o the pubic symphysis after administration of IV contrast. Coronal and sagitta l reformations were obtained. Routine protocol was performed. Scan was perform ed during portal venous phase. IV CONTRAST: 100mL of Isovue 370 ORAL CONTRAST: Water RADIATION DOSE: Total DLP: 366.8 mGy*cm Dose modul ation, iterative reconstruction, and/or weight based adjustment of the mA/kV w as utilized to reduce the radiation dose to as low as reasonably achievable. FINDINGS: LOWER THORAX: Normal. HEPATOBILIARY: Diffuse hepatic steat osis. No focal liver lesion. No biliary ductal dilation. Status post cholecyst ectomy. SPLEEN: No splenomegaly. PANCREAS: No focal masses or ductal d ilatation. ADRENALS: No adrenal nodules. KIDNEYS/URETERS: No hydronephros is, stones, or solid mass lesions. PELVIC ORGANS/BLADDER: Unremarkable. P ERITONEUM / RETROPERITONEUM: No free air or fluid. LYMPH NODES: No lymphadenop athy. VESSELS: Unremarkable. GI TRACT: No abnormal bowel thickening. No b owel obstruction. Normal appendix BONES AND SOFT TISSUES: No acute osseous injury. No suspicious lytic or blastic lesions. IMPRESSION: No acute f indings in the abdomen or pelvis. Diffuse hepatic steatosis. Signed by : Emmy Rosenbaum MD on 07/20/2019 4:15 PM Dictated By: EMMY ROSENBAUM MD Electro nically Signed By: EMMY ROSENBAUM MD on 07/20/19 161 Transcribed By: JUAN on 1615 COPY TO: EV RECINOS DO Urine [id number] 14:23:00* Test Item Value Reference Range Interpretation Comments Urine WBC (test code = 5821-4) 0-5 0-5 [facility] [id number] 14:23:00* Test Item Value Reference Range Interpretation Comments Urine RBC (test code = 90348-8) NONE 0-5 [facility] [id number] 14:23:00* Test Item Value Reference Range Interpretation Comments Urine Bacteria (test code = 94067-1) NONE NONE [facility] Epithelial [id number] 14:23:00 * Test Item Value Reference Range Interpretation Comments Urine Epithelial Cells (test code = 47751-7) RARE NONE [facility] [id number] 14:05:00* Test Item Value Reference Range Interpretation Comments Urine Color (test code = 5778-6) YELLOW YELLOW [facility] [id number] 14:05:00* Test Item Value Reference Range Interpretation Comments Urine Clarity (test code = 17844-2) CLEAR CLEAR [facility] Specific [id number] 14:05:00 * Test Item Value Reference Range Interpretation Comments Urine Specific [place] (test code = 5811-5) 1.010 1.010-1.02 5 [facility] [id number] 14:05:00* Test Item Value Reference Range Interpretation Comments Urine pH (test code = 96482-9) 6 5-7 [facility] Leukocyte [id number] 14:05:00* Test Item Value Reference Range Interpretation Comments Urine Leukocyte Esterase (test code = 5799-2) NEGATIVE NEGATIVE [facility] [id number] 14:05:00* Test Item Value Reference Range Interpretation Comments Urine Nitrite (test code = 67012-0) NEGATIVE NEGATIVE [facility] [id number] 14:05:00* Test Item Value Reference Range Interpretation Comments Urine Protein (test code = 5804-0) NEGATIVE NEGATIVE [facility] Glucose (UA)2019-07-20 14:05:00* Test Item Value Reference Range Interpretation Comments Urine Glucose (UA) (test code = 2349-9) NEGATIVE NEGATIVE [facility] [id number] 14:05:00* Test Item Value Reference Range Interpretation Comments Urine Ketones (test code = 33053-0) NEGATIVE NEGATIVE [facility] [id number] 14:05:00* Test Item Value Reference Range Interpretation Comments Urine Urobilinogen (test code = 32562-7) 0.2 0.2-1 [facility] [id number] 14:05:00* Test Item Value Reference Range Interpretation Comments Urine Bilirubin (test code = 1978-6) NEGATIVE NEGATIVE [facility] [id number] 14:05:00* Test Item Value Reference Range Interpretation Comments Urine Blood (test code = 79414-9) NEGATIVE NEGATIVE [facility] [id number] 14:05:00* Test Item Value Reference Range Interpretation Comments Urine Test (test code = 2106-3) NEGATIVE NEGATIVE [facility] Kinase [id number] 13:55:00* Test Item Value Reference Range Interpretation Comments Creatine Kinase MB (test code = 28968-4) 0.40 0-5.0 [facility] Hospital[facility]onin [id number] 13:55:00* Test Item Value Reference Range Interpretation Comments Troponin I (test code = EKV9807) < 0.001 0-0.300 [facility] [id number] 13:22:00* Test Item Value Reference Range Interpretation Comments Sodium Level (test code = 2951-2) 136 136-145 [facility] [id number] 13:22:00* Test Item Value Reference Range Interpretation Comments Potassium Level (test code = 2823-3) 3.8 3.5-5.1 [facility] HospitalChloride [id number] 13:22:00* Test Item Value Reference Range Interpretation Comments Chloride Level (test code = 2075-0) 100 98-107 [facility] HospitalCarbon Dioxide [id number] 13:22:00* Test Item Value Reference Range Interpretation Comments Carbon Dioxide Level (test code = 2028-9) 27 - [facility] HospitalAnion [id number] 13:22:00* Test Item Value Reference Range Interpretation Comments Anion Gap (test code = 32732-8) 12.8 8-16 [facility] HospitalBlood Urea [id number] 13:22:00* Test Item Value Reference Range Interpretation Comments Blood Urea Nitrogen (test code = 3094-0) 7 7-26 [facility] HospitalCreatinine2020-01-27 13:22:00* Test Item Value Reference Range Interpretation Comments Creatinine (test code = 2160-0) 0.70 0.57-1.11 [facility] HospitalBUN/Creatinine [id number] 13:22:00* Test Item Value Reference Range Interpretation Comments BUN/Creatinine Ratio (test code = 3097-3) 10 6- [facility] HospitalEstimat Glomerular Filtration Rate 2019-07-20 13:22:00* Test Item Value Reference Range Interpretation Comments Estimat Glomerular Filtration Rate (test code = 347731584) > 60 >60 Ranges were taken from the National Kidney Disease Education Program and the [facility] Foundation literature.Reference ranges:60 or greater: Hzjdwu74-45 ( for 3 consecutive months): Chronic kidney disease 15 or less: Kidney failureSouth [facility] Spine & Surgical HospitalGlucose Kkhos6669-98-60 13:22:00* Test Item Value Reference Range Interpretation Comments Glucose Level (test code = APB9080) 85 74-118 [facility] HospitalCalcium Sewsj2014-02-40 13:22:00* Test Item Value Reference Range Interpretation Comments Calcium Level (test code = 26069-0) 9.3 8.4-10.2 [facility] HospitalTotal [id number] 13:22:00* Test Item Value Reference Range Interpretation Comments Total Bilirubin (test code = 1975-2) 0.5 0.2-1.2 [facility] HospitalAspartate Amino Transf (AST/SGOT) 2019-07-20 13:22:00* Test Item Value Reference Range Interpretation Comments Aspartate Amino Transf (AST/SGOT) (test code = Aspartate Amino Transf (AST/SGOT)) 117 5-34 H [facility] HospitalAlanine Aminotransferase (ALT/SGPT) 2019-07-20 13:22:00* Test Item Value Reference Range Interpretation Comments Alanine Aminotransferase (ALT/SGPT) (test code = 1742-6) 152 0-55 H [facility] HospitalTotal [id number] 13:22:00* Test Item Value Reference Range Interpretation Comments Total Protein (test code = 2885-2) 8.0 6.5-8.1 [facility] HospitalAlbumin2020-01-27 13:22:00* Test Item Value Reference Range Interpretation Comments Albumin (test code = 1751-7) 4.0 3.5-5.0 [facility] HospitalGlobulin2020-01-27 13:22:00* Test Item Value Reference Range Interpretation Comments Globulin (test code = 02452-4) 4.0 2.3-3.5 H [facility] HospitalAlbumin/Globulin [id number] 13:22:00 * Test Item Value Reference Range Interpretation Comments Albumin/Globulin Ratio (test code = 1759-0) 1.0 0.8-2.0 [facility] HospitalAlkaline Iotfqipntzz6872-00-07 13:22:00* Test Item Value Reference Range Interpretation Comments Alkaline Phosphatase (test code = 6768-6) 133 40-150 [facility] HospitalCreatine [id number] 13:22:00* Test Item Value Reference Range Interpretation Comments Creatine Kinase (test code = 2157-6) 37 29-168 [facility] HospitalLipase2020-01-27 13:22:00* Test Item Value Reference Range Interpretation Comments Lipase (test code = 3040-3) 26 8-78 [facility] HospitalInfluenza Virus Types A,B Antigen 2019-07-20 13:03:00* Test Item Value Reference Range Interpretation Comments Influenza Virus Types A,B Antigen (test code = 69676-6) NEGATIVE NEGATIVE [facility] HospitalWhite Blood [id number] 12:59:00* Test Item Value Reference Range Interpretation Comments White Blood Count (test code = 6690-2) 3.09 4.8-10.8 L [facility] HospitalRed Blood Dtcju6995-36-71 12:59:00* Test Item Value Reference Range Interpretation Comments Red Blood Count (test code = 789-8) 4.17 3.6-5.1 [facility] HospitalHemoglobin2020-01-27 12:59:00* Test Item Value Reference Range Interpretation Comments Hemoglobin (test code = 71808-1) 11.8 12.0-16.0 L [facility] HospitalHematocrit2020-01-27 12:59:00* Test Item Value Reference Range Interpretation Comments Hematocrit (test code = 4544-3) 35.9 34.2-44.1 [facility] HospitalMean Corpuscular [id number] 12:59:00* Test Item Value Reference Range Interpretation Comments Mean Corpuscular Volume (test code = 787-2) 86.1 81-99 [facility] HospitalMean Corpuscular Pejyqqrodq4629-61-44 12:59:00* Test Item Value Reference Range Interpretation Comments Mean Corpuscular Hemoglobin (test code = 785-6) 28.3 28-32 [facility] HospitalMean Corpuscular Hemoglobin Concent 2019-07-20 12:59:00* Test Item Value Reference Range Interpretation Comments Mean Corpuscular Hemoglobin Concent (test code = 786-4) 32.9 31-35 [facility] HospitalRed Cell Distribution Epysi2328-78-47 12:59:00* Test Item Value Reference Range Interpretation Comments Red Cell Distribution Width (test code = 45906-1) 12.5 11.7 -14.4 [facility] HospitalPlatelet Jykvy7411-78-05 12:59:00* Test Item Value Reference Range Interpretation Comments Platelet Count (test code = 777-3) 173 140-360 [facility] HospitalNeutrophils (%) (Auto)2019-07-20 12:59:00 * Test Item Value Reference Range Interpretation Comments Neutrophils (%) (Auto) (test code = 22229-7) 70.3 38.7-80.0 [facility] HospitalLymphocytes (%) (Auto)2019-07-20 12:59:00 * Test Item Value Reference Range Interpretation Comments Lymphocytes (%) (Auto) (test code = 736-9) 14.9 18.0-39.1 L [facility] HospitalMonocytes (%) (Auto)2019-07-20 12:59:00* Test Item Value Reference Range Interpretation Comments Monocytes (%) (Auto) (test code = 5905-5) 10.0 4.4-11.3 [facility] HospitalEosinophils (%) (Auto)2019-07-20 12:59:00 * Test Item Value Reference Range Interpretation Comments Eosinophils (%) (Auto) (test code = 713-8) 4.2 0.0-6.0 [facility] HospitalBasophils (%) (Auto)2019-07-20 12:59:00* Test Item Value Reference Range Interpretation Comments Basophils (%) (Auto) (test code = 706-2) 0.3 0.0-1.0 [facility] HospitalIM GRANULOCYTES %2019-07-20 12:59:00* Test Item Value Reference Range Interpretation Comments IM GRANULOCYTES % (test code = IM GRANULOCYTES %) 0.3 0.0- 1.0 [facility] HospitalNeutrophils # (Auto)2019-07-20 12:59:00* Test Item Value Reference Range Interpretation Comments Neutrophils # (Auto) (test code = 751-8) 2.2 2.1-6.9 [facility] HospitalLymphocytes # (Auto)2019-07-20 12:59:00* Test Item Value Reference Range Interpretation Comments Lymphocytes # (Auto) (test code = 06564-7) 0.5 1.0-3.2 L [facility] HospitalMonocytes # (Auto)2019-07-20 12:59:00* Test Item Value Reference Range Interpretation Comments Monocytes # (Auto) (test code = 742-7) 0.3 0.2-0.8 [facility] HospitalEosinophils # (Auto)2019-07-20 12:59:00* Test Item Value Reference Range Interpretation Comments Eosinophils # (Auto) (test code = 711-2) 0.1 0.0-0.4 [facility] HospitalBasophils # (Auto)2019-07-20 12:59:00* Test Item Value Reference Range Interpretation Comments Basophils # (Auto) (test code = 704-7) 0.0 0.0-0.1 [facility] HospitalAbsolute Immature Granulocyte (auto 2019-07-20 12:59:00* Test Item Value Reference Range Interpretation Comments Absolute Immature Granulocyte (auto (angela t code = Absolute Immature Granulocyte (auto) 0.01 0-0.1 [facility] HospitalB-TYPE NATRIURETIC [id number] 17:17:00* Test Item Value Reference Range Interpretation Comments B-TYPE NATRIURETIC PEPTIDE (test code = BNP) 86.25 pgram/mL 0-100 N BASIC METABOLIC [id number] 17:09:00* Test Item Value Reference Range Interpretation Comments SODIUM (test code = NA) 141 mmol/L 136-145 N POTASSIUM (test code = K) 4.2 mmol/L 3.5-5.1 N CHLORIDE (test code = CL) 108.0 mmol/L 98-107 H CARBON DIOXIDE (test code = CO2) 27.0 mmol/L 21-32 N ANION GAP (test code = GAP) 10.2 10-20 N GLUCOSE (test code = GLU) 98 mg/dL 74-106 N BLOOD UREA NITROGEN (test code = BUN) 10 mg/dL 7-18 N GLOMERULAR FILTRATION RATE (test code = GFR) > 60 mL/min >=60 Estimated GFR by using Modified MDRD formula.Chronic kidney disease is defined as either kidney damageor GFR <60 mL/min/1.73 m2 for >3 months. CREATININE (test code = CREAT) 0.70 mg/dL 0.55-1.02 N Note change in reference range due to change in reagent. BUN/CREATININE RATIO (test code = BUN/CREA) 14.6 10-20 N CALCIUM (test code = CA) 9.4 mg/dL 8.5-10.1 N HCG SERUM [id number] 17:09:00* Test Item Value Reference Range Interpretation Comments HCG SERUM QUAL (test code = HCGQL) NEGATIVE NEGATIVE This HCGQL test is NOT applicable for MALE patients.Check with nurse about probable order error.If Tumor Marker Test needed, nurse should order test "HCGTU"(Test #550.41717) [id number] 17:09:00* Test Item Value Reference Range Interpretation Comments TROPONIN-I (test code = TROPI) <0.015 ng/mL 0-0.045 N HEPATIC FUNCTION [id number] 17:05:00* Test Item Value Reference Range Interpretation Comments TOTAL PROTEIN (test code = PROT) 8.0 gram/dL 6.4-8.2 N ALBUMIN (test code = ALB) 3.4 g/dL 3.4-5.0 N GLOBULIN (test code = GLOB) 4.6 gram/dL 2.7-4.2 H ALBUMIN/GLOBULIN RATIO (test code = A/G) 0.7 0.75-1.50 L BILIRUBIN TOTAL (test code = BILT) 0.20 mg/dL 0.0-1.0 N BILIRUBIN DIRECT (test code = BILD) 0.10 mg/dL 0.0-0.20 N SGOT/AST (test code = AST) 17 IUnit/L 15-37 N SGPT/ALT (test code = ALT) 29 IUnit/L 12-78 N ALKALINE PHOSPHATASE TOTAL (test code = ALKP) 125 IUnit/L 45-117 H Note change in reference range due to change in reagent. [id number] 17:05:00* Test Item Value Reference Range Interpretation Comments LIPASE (test code = LIP) 79 U/L 73.0-393.0 N [id number] 17:00:00* Test Item Value Reference Range Interpretation Comments D-DIMER (test code = DDIMER) 499.00 ng/mLFEU 0-500 N Clinical Cut-off value for D-Dimer is 500 ng/mL FEU. Comment: The [employer] D-Dimer assay is intended for use asan aid in the diagnosis of venous thromboembolism (VTE)[deep vein thrombosis (DVT) or pulmonary embolism (PE)].The measurement of D-Dimer should not be used as an aid inthe diagnosis of VTE, in patient with: -Therapeutic dose anticoagulant therapy for >24 hours -Fibrinolytic therapy within previous 7 days -Trauma or surgery within previous 4 weeks -Disseminated malignancies -Aortic aneurysm -Sepsis, severe infections, pneumonia, severe skin infections -Liver cirrhosis - BASIC METABOLIC [id number] 16:57:00* Test Item Value Reference Range Interpretation Comments SODIUM (test code = NA) mmol/L 136-145 POTASSIUM (test code = K) mmol/L 3.5-5.1 CHLORIDE (test code = CL) mmol/L 98-107 CARBON DIOXIDE (test code = CO2) mmol/L 21-32 ANION GAP (test code = GAP) 10-20 GLUCOSE (test code = GLU) mg/dL 74-106 BLOOD UREA NITROGEN (test code = BUN) mg/dL 7-18 GLOMERULAR FILTRATION RATE (test code = GFR) mL/min >=60 CREATININE (test code = CREAT) mg/dL 0.55-1.02 BUN/CREATININE RATIO (test code = BUN/CREA) 10-20 CALCIUM (test code = CA) mg/dL 8.5-10.1 HCG SERUM [id number] 16:57:00* Test Item Value Reference Range Interpretation Comments HCG SERUM QUAL (test code = HCGQL) NEGATIVE NEGATIVE This HCGQL test is NOT applicable for MALE patients.Check with nurse about probable order error.If Tumor Marker Test needed, nurse should order test "HCGTU"(Test #550.64818) [id number] 16:57:00* Test Item Value Reference Range Interpretation Comments TROPONIN-I (test code = TROPI) ng/mL 0-0.045 BASIC METABOLIC [id number] 16:57:00* Test Item Value Reference Range Interpretation Comments SODIUM (test code = NA) 141 mmol/L 136-145 N POTASSIUM (test code = K) 4.2 mmol/L 3.5-5.1 N CHLORIDE (test code = CL) 108.0 mmol/L 98-107 H CARBON DIOXIDE (test code = CO2) mmol/L 21-32 ANION GAP (test code = GAP) 10-20 GLUCOSE (test code = GLU) mg/dL 74-106 BLOOD UREA NITROGEN (test code = BUN) mg/dL 7-18 GLOMERULAR FILTRATION RATE (test code = GFR) mL/min >=60 CREATININE (test code = CREAT) mg/dL 0.55-1.02 BUN/CREATININE RATIO (test code = BUN/CREA) 10-20 CALCIUM (test code = CA) mg/dL 8.5-10.1 HCG SERUM [id number] 16:57:00* Test Item Value Reference Range Interpretation Comments HCG SERUM QUAL (test code = HCGQL) NEGATIVE NEGATIVE This HCGQL test is NOT applicable for MALE patients.Check with nurse about probable order error.If Tumor Marker Test needed, nurse should order test "HCGTU"(Test #550.00678) [id number] 16:57:00* Test Item Value Reference Range Interpretation Comments TROPONIN-I (test code = TROPI) ng/mL 0-0.045 CBC W/O [id number] 16:49:00* Test Item Value Reference Range Interpretation Comments WHITE BLOOD CELL (test code = WBC) 5.6 K/mm3 4.5-12.5 N RED BLOOD CELL (test code = RBC) 4.05 mill/mm3 3.7-5.2 N HEMOGLOBIN (test code = HGB) 11.6 gram/dL 11.5-15.5 N HEMATOCRIT (test code = HCT) 36.2 % 36.0-46.0 N MEAN CELL VOLUME (test code = MCV) 89.4 fL 80-98 N MEAN CELL HGB (test code = MCH) 28.6 picogram 27.0-33.0 N MEAN CELL HGB CONCETRATION (test code = MCHC) 32.0 gram/dL 33.0-36. 0 L RED CELL DISTRIBUTION WIDTH (test code = RDW) 12.8 % 11.6-16. 2 N PLATELET COUNT (test code = PLT) 259 K/mm3 150-450 N MEAN PLATELET VOLUME (test code = MPV) 9.7 fL 6.7-11.0 N CBC W/O [id number] 16:48:00* Test Item Value Reference Range Interpretation Comments WHITE BLOOD CELL (test code = WBC) K/mm3 4.5-12.5 RED BLOOD CELL (test code = RBC) mill/mm3 3.7-5.2 HEMOGLOBIN (test code = HGB) 11.6 gram/dL 11.5-15.5 N HEMATOCRIT (test code = HCT) 36.2 % 36.0-46.0 N MEAN CELL VOLUME (test code = MCV) fL 80-98 MEAN CELL HGB (test code = MCH) picogram 27.0-33.0 MEAN CELL HGB CONCETRATION (test code = MCHC) gram/dL 33.0-36. 0 RED CELL DISTRIBUTION WIDTH (test code = RDW) % 11.6-16. 2 PLATELET COUNT (test code = PLT) K/mm3 150-450 MEAN PLATELET VOLUME (test code = MPV) fL 6.7-11.0 - XR CHEST 1 [id number] 16:32:00 FAX: Aftab Jacobo MD [phone] [place]: B St: DEP Name: PRASANNA KAM [facility] : [birth year] Age/S: 49/F [address] Unit #: [id number] Loc: [place] [address] Phys: Aftab Jacobo MD Acct: [id number] Dis Date: Status: DEP ER PHONE #: [phone] Exam Date: 05/27/2019 7199 FAX #: [phone] Reason: Shortness of Breath EXAMS: CPT CODE: [id number] XR CHEST 1 V 06638 HISTORY: Shortness of breath. COMPARISON: None available. Location: [facility]. No acute infiltrates, effusion or congestion is noted. The cardiac and mediastinal silhouette are within normal limits. IMPRESSI ON: No acute infiltrates, effusion or congestion. at 1632 Reported and signed by: Hero Lay M.D. CC: Aftab Jacobo MD Technologist: Georgina Milton(R) Trnscrd Date/Time/By: 05/27/2019 (650) : By: [email or web address] Orig Print D/T: S: 05/27/2019 (9822) PAGE 1 Signed Report - XR CHEST 1 [id number] 16:32:00 FAX: Aftab Jacobo MD [phone] [place]: B St: REG Name: PRASANNA KAM [facility] : [birth year] Age/S: 49/F [address] [facility] Unit #: [id number] Loc: [place] [address] Phys: Aftab Jacobo MD Acct: [id number] Dis Date: Status: REG ER PHONE #: [phone] Exam Date: 05/27/2019 1559 FAX #: [phone] Reason: Shortness of Breath EXAMS: CPT CODE: [id number] XR CHEST 1 V 32092 HISTORY: Shortness of breath. COMPARISON: None available. Location: [facility]. No acute infiltrates, effusion or congestion is noted. The cardiac and mediastinal silhouette are within normal limits. IMPRESSI ON: No acute infiltrates, effusion or congestion. at 1632 Reported and signed by: Hero Lay M.D. CC: Aftab Jacobo MD Technologist: Georgina Arrieta) Trnscrd Date/Time/By: 05/27/2019 (0315) : By: [email or web address] Orig Print D/T: S: 05/27/2019 (3512) PAGE 1 Signed Report URINALYSIS [id number] 16:31:00* Test Item Value Reference Range Interpretation Comments UA COLOR (test code = COLU) Dark-Yellow YELLOW UA APPEARANCE (test code = APPU) Cloudy CLEAR A UA GLUCOSE DIPSTICK (test code = DGLUU) NEGATIVE mg/dL NEGATIVE UA BILIRUBIN DIPSTICK (test code = BILU) NEGATIVE mg/dL NEGATIVE UA KETONE DIPSTICK (test code = KETU) NEGATIVE mg/dL NEGATIVE UA SPECIFIC GRAVITY (test code = SGU) 1.007 1.001-1.035 UA BLOOD DIPSTICK (test code = DMITRIY) Negative mg/dL NEGATIVE UA PH DIPSTICK (test code = DEEPIKA) 6.0 5.0-8.0 UA PROTEIN DIPSTICK (test code = PROU) NEGATIVE mg/dL NEGATIVE UA UROBILINIOGEN DIPSTICK (test code = URO) Normal mg/dL NEGATIVE UA NITRITE DIPSTICK (test code = HARVINDER) NEGATIVE NEGATIVE UA LEUKOCYTE ESTERASE W REFLEX (test code = LEUUR) 500 Chao/u L (3+) Chao/uL NEGATIVE A UA WBC (test code = WBCU) 51-100 per HPF 0-5 A UA RBC (test code = RBCU) 3-5 #/HPF 0-5 UA EPITHELIAL CELLS (test code = EPIU) FEW per HPF FEW UA BACTERIA (test code = BACU) FEW #/HPF NONE A Urine Source? Clean CatchURINALYSIS [id number] 16:25:00* Test Item Value Reference Range Interpretation Comments UA COLOR (test code = COLU) Dark-Yellow YELLOW UA APPEARANCE (test code = APPU) Cloudy CLEAR A UA GLUCOSE DIPSTICK (test code = DGLUU) NEGATIVE mg/dL NEGATIVE UA BILIRUBIN DIPSTICK (test code = BILU) NEGATIVE mg/dL NEGATIVE UA KETONE DIPSTICK (test code = KETU) NEGATIVE mg/dL NEGATIVE UA SPECIFIC GRAVITY (test code = SGU) 1.007 1.001-1.035 UA BLOOD DIPSTICK (test code = DMITRIY) Negative mg/dL NEGATIVE UA PH DIPSTICK (test code = DEEPIKA) 6.0 5.0-8.0 UA PROTEIN DIPSTICK (test code = PROU) NEGATIVE mg/dL NEGATIVE UA UROBILINIOGEN DIPSTICK (test code = URO) Normal mg/dL NEGATIVE UA NITRITE DIPSTICK (test code = HARVINDER) NEGATIVE NEGATIVE UA LEUKOCYTE ESTERASE W REFLEX (test code = LEUUR) 500 Chao/u L (3+) Chao/uL NEGATIVE A UA WBC (test code = WBCU) per HPF 0-5 UA RBC (test code = RBCU) per HPF 0-5 UA EPITHELIAL CELLS (test code = EPIU) per HPF Few UA BACTERIA (test code = BACU) per HPF NONE Urine Source? Clean CatchURINALYSIS [id number] 01:12:00* Test Item Value Reference Range Interpretation Comments UA COLOR (test code = COLU) YELLOW YELLOW UA APPEARANCE (test code = APPU) TURBID CLEAR A UA GLUCOSE DIPSTICK (test code = DGLUU) NEGATIVE mg/dL NEGATIVE UA BILIRUBIN DIPSTICK (test code = BILU) NEGATIVE mg/dL NEGATIVE UA KETONE DIPSTICK (test code = KETU) NEGATIVE mg/dL NEGATIVE UA SPECIFIC GRAVITY (test code = SGU) 1.017 1.001-1.035 UA BLOOD DIPSTICK (test code = DMITRIY) 0.06 mg/dL (1+) mg/dL NEGATIVE A UA PH DIPSTICK (test code = DEEPIKA) 5.5 5.0-8.0 UA PROTEIN DIPSTICK (test code = PROU) 20 (Trace) mg/dL NEGATIVE A UA UROBILINIOGEN DIPSTICK (test code = URO) Normal mg/dL NEGATIVE UA NITRITE DIPSTICK (test code = HARVINDER) POSITIVE NEGATIVE A UA LEUKOCYTE ESTERASE W REFLEX (test code = LEUUR) 500 Chao/u L (3+) Chao/uL NEGATIVE A UA WBC (test code = WBCU) 51-100 per HPF 0-5 A UA RBC (test code = RBCU) 3-5 per HPF 0-5 A UA EPITHELIAL CELLS (test code = EPIU) Few (2-5/hpf) per HPF Few UA BACTERIA (test code = BACU) MANY per HPF NONE A Urine Source? Clean CatchURINALYSIS [id number] 00:54:00* Test Item Value Reference Range Interpretation Comments UA COLOR (test code = COLU) YELLOW YELLOW UA APPEARANCE (test code = APPU) TURBID CLEAR A UA GLUCOSE DIPSTICK (test code = DGLUU) NEGATIVE mg/dL NEGATIVE UA BILIRUBIN DIPSTICK (test code = BILU) NEGATIVE mg/dL NEGATIVE UA KETONE DIPSTICK (test code = KETU) NEGATIVE mg/dL NEGATIVE UA SPECIFIC GRAVITY (test code = SGU) 1.017 1.001-1.035 UA BLOOD DIPSTICK (test code = DMITRIY) 0.06 mg/dL (1+) mg/dL NEGATIVE A UA PH DIPSTICK (test code = DEEPIKA) 5.5 5.0-8.0 UA PROTEIN DIPSTICK (test code = PROU) 20 (Trace) mg/dL NEGATIVE A UA UROBILINIOGEN DIPSTICK (test code = URO) Normal mg/dL NEGATIVE UA NITRITE DIPSTICK (test code = HARVINDER) POSITIVE NEGATIVE A UA LEUKOCYTE ESTERASE W REFLEX (test code = LEUUR) 500 Chao/u L (3+) Chao/uL NEGATIVE A UA WBC (test code = WBCU) per HPF 0-5 UA RBC (test code = RBCU) per HPF 0-5 UA EPITHELIAL CELLS (test code = EPIU) per HPF Few UA BACTERIA (test code = BACU) per HPF NONE Urine Source? Clean Catch- CT ABD PELVIS W/O [id number] 00:21:00 Name: PRASANNA DAMIAN [facility] : 1970 Age/S: 49 / F [address] [facility] Unit #: [id number] Loc: [place] [address] Phys: Maame Sher PAPER SPOOLER Acct: [id number] Di s Date: Status: REG ER PHONE #: Exam Date: 05/27/2019 0010 FAX #: Reason: Right flank pain, uti, and nausea and vomiting EXAMS: CPT CODE: [id number] CT ABD PELVIS W/O CONT 61536 EXAM: - CT ABD PELVIS W/O CONT HISTORY: Right flank pain, uti, and nausea and vomiting Location code:C3 TECHNIQUE: Contrast - No IV contrast was given. No oral contrast was given Noncontrast phase - abdomen and pelvis including all of kidneys Reconstructions - coronal and sagittal p lanes Automated exposure reduction (Auto mA/Smart mA) was utilized in compliance with ACR Image Wisely with DLP of 434.17 mGy-cm. COMPARISON: 04/13/2019 FINDINGS: Statements: Lack of int ravenous contrast compromises evaluation of abdominopelvic organs and vasc ulature. Lack of oral contrast compromises evaluation of bowel. Thoracic: Included images of the lower chest demonstrate no abnormali ties. Hepatobiliary: The liver is normal without focal lesion. Sta tus post cholecystectomy. No biliary dilation. Pancreas: Nor mal. Spleen: Normal. Adrenals: Normal. Genitourinary: The kidneys are normal. There is no evidence of hydronep hrosis of either kidney. There is no evidence of renal calculus. Evaluat ion of the bladder is limited, but no obvious bladder abnormality is prese nt. Gastrointestinal: Colonic diverticulosis is present without CT evidence of diverticulitis. No bowel obstruction is seen. The appe ndix is normal. Vascular: The aorta is grossly normal in appearanc e. Lymphatics: No enlarged lymph nodes by CT size criteria. 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 There is no acute osseous abnormality. No ventral hernias. Peritoneum/Other: No extraluminal air. No extraluminal fluid. IMPRESSION: 1. No acute abnormality. 2. Colonic diverticulosis is present without CT evidence of diverticulitis. at 0021 Reported and signed by: Marcelo Denny M.D. CC: Brandie Sher NP Technologist:ABDULLAHI MADDOX CTDI: DLP: Trnscb Date/Time: 05/27/2019 (002) [email or web address] Orig Print D/T: S: 05/27/2019 (0025) PAGE 2 Signed Report BASIC METABOLIC [id number] 00:11:00* Test Item Value Reference Range Interpretation Comments SODIUM (test code = NA) 138 mmol/L 136-145 N POTASSIUM (test code = K) 3.8 mmol/L 3.5-5.1 N CHLORIDE (test code = CL) 105.0 mmol/L 98-107 N CARBON DIOXIDE (test code = CO2) 26.0 mmol/L 21-32 N ANION GAP (test code = GAP) 10.8 10-20 N GLUCOSE (test code = GLU) 91 mg/dL 74-106 N BLOOD UREA NITROGEN (test code = BUN) 10 mg/dL 7-18 N GLOMERULAR FILTRATION RATE (test code = GFR) > 60 mL/min >=60 Estimated GFR by using Modified MDRD formula.Chronic kidney disease is defined as either kidney damageor GFR <60 mL/min/1.73 m2 for >3 months. CREATININE (test code = CREAT) 0.70 mg/dL 0.55-1.02 N Note change in reference range due to change in reagent. BUN/CREATININE RATIO (test code = BUN/CREA) 14.0 10-20 N CALCIUM (test code = CA) 8.9 mg/dL 8.5-10.1 N HEPATIC FUNCTION [id number] 00:11:00* Test Item Value Reference Range Interpretation Comments TOTAL PROTEIN (test code = PROT) 8.7 gram/dL 6.4-8.2 H ALBUMIN (test code = ALB) 3.9 g/dL 3.4-5.0 N GLOBULIN (test code = GLOB) 4.8 gram/dL 2.7-4.2 H ALBUMIN/GLOBULIN RATIO (test code = A/G) 0.8 0.75-1.50 N BILIRUBIN TOTAL (test code = BILT) 0.20 mg/dL 0.0-1.0 N BILIRUBIN DIRECT (test code = BILD) 0.08 mg/dL 0.0-0.20 N SGOT/AST (test code = AST) 21 IUnit/L 15-37 N SGPT/ALT (test code = ALT) 28 IUnit/L 12-78 N ALKALINE PHOSPHATASE TOTAL (test code = ALKP) 148 IUnit/L 45-117 H Note change in reference range due to change in reagent. [id number] 00:11:00* Test Item Value Reference Range Interpretation Comments LIPASE (test code = LIP) 120 U/L 73.0-393.0 N HCG SERUM [id number] 00:11:00* Test Item Value Reference Range Interpretation Comments HCG SERUM QUAL (test code = HCGQL) NEGATIVE NEGATIVE This HCGQL test is NOT applicable for MALE patients.Check with nurse about probable order error.If Tumor Marker Test needed, nurse should order test "HCGTU"(Test #550.41305) [id number] 00:11:00* Test Item Value Reference Range Interpretation Comments TROPONIN-I (test code = TROPI) <0.015 ng/mL 0-0.045 N BASIC METABOLIC [id number] 00:07:00* Test Item Value Reference Range Interpretation Comments SODIUM (test code = NA) 138 mmol/L 136-145 N POTASSIUM (test code = K) 3.8 mmol/L 3.5-5.1 N CHLORIDE (test code = CL) 105.0 mmol/L 98-107 N CARBON DIOXIDE (test code = CO2) mmol/L 21-32 ANION GAP (test code = GAP) 10-20 GLUCOSE (test code = GLU) mg/dL 74-106 BLOOD UREA NITROGEN (test code = BUN) mg/dL 7-18 GLOMERULAR FILTRATION RATE (test code = GFR) mL/min >=60 CREATININE (test code = CREAT) mg/dL 0.55-1.02 BUN/CREATININE RATIO (test code = BUN/CREA) 10-20 CALCIUM (test code = CA) mg/dL 8.5-10.1 HEPATIC FUNCTION [id number] 00:07:00* Test Item Value Reference Range Interpretation Comments TOTAL PROTEIN (test code = PROT) gram/dL 6.4-8.2 ALBUMIN (test code = ALB) g/dL 3.4-5.0 GLOBULIN (test code = GLOB) gram/dL 2.7-4.2 ALBUMIN/GLOBULIN RATIO (test code = A/G) 0.75-1.50 BILIRUBIN TOTAL (test code = BILT) mg/dL 0.0-1.0 BILIRUBIN DIRECT (test code = BILD) mg/dL 0.0-0.20 SGOT/AST (test code = AST) IUnit/L 15-37 SGPT/ALT (test code = ALT) IUnit/L 12-78 ALKALINE PHOSPHATASE TOTAL (test code = ALKP) IUnit/L 45-117 [id number] 00:07:00* Test Item Value Reference Range Interpretation Comments LIPASE (test code = LIP) U/L 73.0-393.0 HCG SERUM [id number] 00:07:00* Test Item Value Reference Range Interpretation Comments HCG SERUM QUAL (test code = HCGQL) NEGATIVE NEGATIVE This HCGQL test is NOT applicable for MALE patients.Check with nurse about probable order error.If Tumor Marker Test needed, nurse should order test "HCGTU"(Test #550.52254) [id number] 00:07:00* Test Item Value Reference Range Interpretation Comments TROPONIN-I (test code = TROPI) ng/mL 0-0.045 BASIC METABOLIC [id number] 00:06:00* Test Item Value Reference Range Interpretation Comments SODIUM (test code = NA) 138 mmol/L 136-145 N POTASSIUM (test code = K) 3.8 mmol/L 3.5-5.1 N CHLORIDE (test code = CL) 105.0 mmol/L 98-107 N CARBON DIOXIDE (test code = CO2) mmol/L 21-32 ANION GAP (test code = GAP) 10-20 GLUCOSE (test code = GLU) mg/dL 74-106 BLOOD UREA NITROGEN (test code = BUN) mg/dL 7-18 GLOMERULAR FILTRATION RATE (test code = GFR) mL/min >=60 CREATININE (test code = CREAT) mg/dL 0.55-1.02 BUN/CREATININE RATIO (test code = BUN/CREA) 10-20 CALCIUM (test code = CA) mg/dL 8.5-10.1 HEPATIC FUNCTION [id number] 00:06:00* Test Item Value Reference Range Interpretation Comments TOTAL PROTEIN (test code = PROT) gram/dL 6.4-8.2 ALBUMIN (test code = ALB) g/dL 3.4-5.0 GLOBULIN (test code = GLOB) gram/dL 2.7-4.2 ALBUMIN/GLOBULIN RATIO (test code = A/G) 0.75-1.50 BILIRUBIN TOTAL (test code = BILT) mg/dL 0.0-1.0 BILIRUBIN DIRECT (test code = BILD) mg/dL 0.0-0.20 SGOT/AST (test code = AST) IUnit/L 15-37 SGPT/ALT (test code = ALT) IUnit/L 12-78 ALKALINE PHOSPHATASE TOTAL (test code = ALKP) IUnit/L 45-117 [id number] 00:06:00* Test Item Value Reference Range Interpretation Comments LIPASE (test code = LIP) U/L 73.0-393.0 HCG SERUM [id number] 00:06:00* Test Item Value Reference Range Interpretation Comments HCG SERUM QUAL (test code = HCGQL) NEGATIVE [id number] 00:06:00* Test Item Value Reference Range Interpretation Comments TROPONIN-I (test code = TROPI) ng/mL 0-0.045 CBC W/O [id number] 23:44:00* Test Item Value Reference Range Interpretation Comments WHITE BLOOD CELL (test code = WBC) 5.4 K/mm3 4.5-12.5 N RED BLOOD CELL (test code = RBC) 4.23 mill/mm3 3.7-5.2 N HEMOGLOBIN (test code = HGB) 12.2 gram/dL 11.5-15.5 N HEMATOCRIT (test code = HCT) 37.4 % 36.0-46.0 N MEAN CELL VOLUME (test code = MCV) 88.4 fL 80-98 N MEAN CELL HGB (test code = MCH) 28.8 picogram 27.0-33.0 N MEAN CELL HGB CONCETRATION (test code = MCHC) 32.6 gram/dL 33.0-36. 0 L RED CELL DISTRIBUTION WIDTH (test code = RDW) 13.1 % 11.6-16. 2 N PLATELET COUNT (test code = PLT) 278 K/mm3 150-450 N MEAN PLATELET VOLUME (test code = MPV) 9.6 fL 6.7-11.0 N CBC W/O [id number] 23:43:00* Test Item Value Reference Range Interpretation Comments WHITE BLOOD CELL (test code = WBC) K/mm3 4.5-12.5 RED BLOOD CELL (test code = RBC) mill/mm3 3.7-5.2 HEMOGLOBIN (test code = HGB) 12.2 gram/dL 11.5-15.5 N HEMATOCRIT (test code = HCT) 37.4 % 36.0-46.0 N MEAN CELL VOLUME (test code = MCV) fL 80-98 MEAN CELL HGB (test code = MCH) picogram 27.0-33.0 MEAN CELL HGB CONCETRATION (test code = MCHC) gram/dL 33.0-36. 0 RED CELL DISTRIBUTION WIDTH (test code = RDW) % 11.6-16. 2 PLATELET COUNT (test code = PLT) K/mm3 150-450 MEAN PLATELET VOLUME (test code = MPV) fL 6.7-11.0 NECK SOFT [id number] 23:43:00 [place] [address] Patient Name: PRASANNA DAMIAN MR #: [id number] : 1970 Age/Sex: 49/F Req #: [id number] Adm Physician: Ordered by: EV RECINOS DO Report #: [id number] Location: Room/Bed: Procedure: 36 DX/NECK SOFT TISSUE Exam Date: 04/25/19 Exam Time : 2315 REPORT STATUS: Signed X-R AY SOFT TISSUE NECK-2 VIEWS HISTORY: Pain. COMPARISON: None. FINDINGS: Airway: Patent. Retropharyngeal soft tissues: Not thicken ed. Epiglottis: Not thickened. Adenoids: Within normal limits. Ortega perficial neck soft tissues: Normal. Osseous structures: No fractures or di slocations. Upper thorax: The upper lungs and upper mediastinum are within normal limits. No foreign body identified. IMPRESSION: No acute r adiographic abnormality. Signed by: Will Osorio DO on 04/25/2019 11:44 P M Dictated By: WILL OSORIO DO Transcribed By: JUAN on 04/25/19 2344 COPY T O: EV RECINOS DO CHEST 2 [id number] 23:42:00 [place] [address] Patient Name: PRASANNA DAMIAN MR #: [id number] : 1970 Age/Sex: 49/F Req #: [id number] Adm Physician: Ordered by: EV RECINOS DO Report #: [id number] Location: ER Room/Bed: Procedure: 35 DX/CHEST 2 VIEWS Exam Date: 04/25/19 Exam Time: 2 315 REPORT STATUS: Signed EXAMIN ATION: CHEST 2 VIEWS INDICATION: Cough, throat pain COMPARISON: None FINDINGS: PA and lateral views TUBES and LINES: None. LUNGS: Lungs are well inflated. Lungs are clear. No consolidations. Mild central bronchial wall thickening. PLEURA: No pleural effusion or pneumot horax. HEART AND MEDIASTINUM: The cardiomediastinal silhouette is unremark able. BONES AND SOFT TISSUES: No acute osseous lesion. Soft tissues a re unremarkable. UPPER ABDOMEN: No free air under the diaphragm. Cholecys tectomy clips in the right upper quadrant. IMPRESSION: Findings can be seen with bronchitis. Signed by: Will Osorio DO on 04/25/2019 11:43 PM Dictated By: WILL OSORIO DO 42 Transcribed By: JUAN on 04/25/193 COPY TO: EV RECINOS DO - CT ABD PELVIS W/O [id number] 07:23:00 Name: RICKIEPRASANNA [facility] : 1970 Age/S: 49 / F [address] [facility] Unit #: [id number] Loc: [place] [address] Phys: Kaylah Mcduffie DO Acct: [id number] Di s Date: Status: REG ER PHONE #: Exam Date: 04/13/2019 0624 FAX #: Reason: flank pain, r/o kidney stone EXAMS: CPT CODE: [id number] CT ABD PELVIS W/O CONT 99429 HISTORY: flank pain, r/o kidney stone TECHNIQUE: 5mm axial CT images were obtained through the abdomen and pelvis without contrast. Sagittal and coronal reformatted images were generated. Automated exposure control for dose reduction. COMPARISON: 05/22/18 FINDINGS: Lung bases are clear. Normal heart size. Hepatomegaly. Cholecystectomy. Pa ncreas, spleen, adrenal glands are unremarkable. Nonenhanced kidneys are unremarkable. No urinary calculus or hydronephrosis. Limited evaluation the GI tract without oral contrast. Stomach, small bowel, appendix unremarkable. Mild ascending colon diverticulosis. No free air or free fluid. No lymphadenopathy. Abdominal aorta is normal in caliber. Mild urinary bladder wall thickening. Nonenhanced ut erus and ovaries are unremarkable. No pelvic free fluid. Mil d degenerative changes of the spine, sacral iliac joints, and hips. IMPRESSION: No urinary calculus or hydronephrosis. Mild urinary bladder wall thickening; correlate clinically to exclude cystitis. LOCATION: LP at 0723 Reported and signed by: Estephania Hogan D.O. PAGE 1 Signed Report (CONTINUED) Name: PRASANNA DAMIAN [facility] : 1970 Age/S: 49 / F [address] [facility] Unit #: [id number] Loc: [place], [place] [address] Phys: Tracy Mcduffie DO Acct: [id number] Dis Date: Status: REG ER PHONE #: [phone] Exam Date: 04/13 FAX #: [phone] Reason: flank pain, r/o kidney stone EXAMS: CPT CODE: [id number] CT ABD PELVIS W/O CONT 74 176 <Continued> CC: Tracy Mcduffie DO Technologist:Marissa Recio,RT(R),CT CTDI: DLP: Trnscb Date/Time: 04/13/2019 (722) [email or web address] Orig Print D/T: S: 04/13/2019 (07) PAGE 2 Signed Report BASIC METABOLIC [id number] 06:50:00* Test Item Value Reference Range Interpretation Comments SODIUM (test code = NA) 138 mmol/L 136-145 N POTASSIUM (test code = K) 4.0 mmol/L 3.5-5.1 N CHLORIDE (test code = CL) 104.0 mmol/L 98-107 N CARBON DIOXIDE (test code = CO2) 27.0 mmol/L 21-32 N ANION GAP (test code = GAP) 11.0 10-20 N GLUCOSE (test code = GLU) 98 mg/dL 74-106 N BLOOD UREA NITROGEN (test code = BUN) 20 mg/dL 7-18 H GLOMERULAR FILTRATION RATE (test code = GFR) > 60 mL/min >=60 Estimated GFR by using Modified MDRD formula.Chronic kidney disease is defined as either kidney damageor GFR <60 mL/min/1.73 m2 for >3 months. CREATININE (test code = CREAT) 0.70 mg/dL 0.55-1.02 N Note change in reference range due to change in reagent. BUN/CREATININE RATIO (test code = BUN/CREA) 27.3 10-20 H CALCIUM (test code = CA) 9.4 mg/dL 8.5-10.1 N HEPATIC FUNCTION [id number] 06:50:00* Test Item Value Reference Range Interpretation Comments TOTAL PROTEIN (test code = PROT) 8.5 gram/dL 6.4-8.2 H ALBUMIN (test code = ALB) 3.8 g/dL 3.4-5.0 N GLOBULIN (test code = GLOB) 4.7 gram/dL 2.7-4.2 H ALBUMIN/GLOBULIN RATIO (test code = A/G) 0.8 0.75-1.50 N BILIRUBIN TOTAL (test code = BILT) 0.40 mg/dL 0.0-1.0 N BILIRUBIN DIRECT (test code = BILD) 0.09 mg/dL 0.0-0.20 N SGOT/AST (test code = AST) 21 IUnit/L 15-37 N SGPT/ALT (test code = ALT) 26 IUnit/L 12-78 N ALKALINE PHOSPHATASE TOTAL (test code = ALKP) 136 IUnit/L 45-117 H Note change in reference range due to change in reagent. [id number] 06:50:00* Test Item Value Reference Range Interpretation Comments LIPASE (test code = LIP) 96 U/L 73.0-393.0 N HCG SERUM [id number] 06:50:00* Test Item Value Reference Range Interpretation Comments HCG SERUM QUAL (test code = HCGQL) NEGATIVE NEGATIVE This HCGQL test is NOT applicable for MALE patients.Check with nurse about probable order error.If Tumor Marker Test needed, nurse should order test "HCGTU"(Test #550.06664) CBC W/O [id number] 06:44:00* Test Item Value Reference Range Interpretation Comments WHITE BLOOD CELL (test code = WBC) 7.5 K/mm3 4.5-12.5 N RED BLOOD CELL (test code = RBC) 3.92 mill/mm3 3.7-5.2 N HEMOGLOBIN (test code = HGB) 11.5 gram/dL 11.5-15.5 N HEMATOCRIT (test code = HCT) 34.5 % 36.0-46.0 L MEAN CELL VOLUME (test code = MCV) 88.0 fL 80-98 N MEAN CELL HGB (test code = MCH) 29.3 picogram 27.0-33.0 N MEAN CELL HGB CONCETRATION (test code = MCHC) 33.3 gram/dL 33.0-36. 0 N RED CELL DISTRIBUTION WIDTH (test code = RDW) 13.2 % 11.6-16. 2 N PLATELET COUNT (test code = PLT) 315 K/mm3 150-450 N MEAN PLATELET VOLUME (test code = MPV) 9.9 fL 6.7-11.0 N CBC W/O [id number] 06:40:00* Test Item Value Reference Range Interpretation Comments WHITE BLOOD CELL (test code = WBC) K/mm3 4.5-12.5 RED BLOOD CELL (test code = RBC) mill/mm3 3.7-5.2 HEMOGLOBIN (test code = HGB) 11.5 gram/dL 11.5-15.5 N HEMATOCRIT (test code = HCT) % 36.0-46.0 MEAN CELL VOLUME (test code = MCV) fL 80-98 MEAN CELL HGB (test code = MCH) picogram 27.0-33.0 MEAN CELL HGB CONCETRATION (test code = MCHC) gram/dL 33.0-36. 0 RED CELL DISTRIBUTION WIDTH (test code = RDW) % 11.6-16. 2 PLATELET COUNT (test code = PLT) K/mm3 150-450 MEAN PLATELET VOLUME (test code = MPV) fL 6.7-11.0 BASIC METABOLIC [id number] 06:37:00* Test Item Value Reference Range Interpretation Comments SODIUM (test code = NA) 138 mmol/L 136-145 N POTASSIUM (test code = K) 4.0 mmol/L 3.5-5.1 N CHLORIDE (test code = CL) 104.0 mmol/L 98-107 N CARBON DIOXIDE (test code = CO2) mmol/L 21-32 ANION GAP (test code = GAP) 10-20 GLUCOSE (test code = GLU) mg/dL 74-106 BLOOD UREA NITROGEN (test code = BUN) mg/dL 7-18 GLOMERULAR FILTRATION RATE (test code = GFR) mL/min >=60 CREATININE (test code = CREAT) mg/dL 0.55-1.02 BUN/CREATININE RATIO (test code = BUN/CREA) 10-20 CALCIUM (test code = CA) mg/dL 8.5-10.1 HEPATIC FUNCTION [id number] 06:37:00* Test Item Value Reference Range Interpretation Comments TOTAL PROTEIN (test code = PROT) gram/dL 6.4-8.2 ALBUMIN (test code = ALB) g/dL 3.4-5.0 GLOBULIN (test code = GLOB) gram/dL 2.7-4.2 ALBUMIN/GLOBULIN RATIO (test code = A/G) 0.75-1.50 BILIRUBIN TOTAL (test code = BILT) mg/dL 0.0-1.0 BILIRUBIN DIRECT (test code = BILD) mg/dL 0.0-0.20 SGOT/AST (test code = AST) IUnit/L 15-37 SGPT/ALT (test code = ALT) IUnit/L 12-78 ALKALINE PHOSPHATASE TOTAL (test code = ALKP) IUnit/L 45-117 [id number] 06:37:00* Test Item Value Reference Range Interpretation Comments LIPASE (test code = LIP) U/L 73.0-393.0 HCG SERUM [id number] 06:37:00* Test Item Value Reference Range Interpretation Comments HCG SERUM QUAL (test code = HCGQL) NEGATIVE NEGATIVE This HCGQL test is NOT applicable for MALE patients.Check with nurse about probable order error.If Tumor Marker Test needed, nurse should order test "HCGTU"(Test #550.09466) BASIC METABOLIC [id number] 06:35:00* Test Item Value Reference Range Interpretation Comments SODIUM (test code = NA) 138 mmol/L 136-145 N POTASSIUM (test code = K) 4.0 mmol/L 3.5-5.1 N CHLORIDE (test code = CL) 104.0 mmol/L 98-107 N CARBON DIOXIDE (test code = CO2) mmol/L 21-32 ANION GAP (test code = GAP) 10-20 GLUCOSE (test code = GLU) mg/dL 74-106 BLOOD UREA NITROGEN (test code = BUN) mg/dL 7-18 GLOMERULAR FILTRATION RATE (test code = GFR) mL/min >=60 CREATININE (test code = CREAT) mg/dL 0.55-1.02 BUN/CREATININE RATIO (test code = BUN/CREA) 10-20 CALCIUM (test code = CA) mg/dL 8.5-10.1 HEPATIC FUNCTION [id number] 06:35:00* Test Item Value Reference Range Interpretation Comments TOTAL PROTEIN (test code = PROT) gram/dL 6.4-8.2 ALBUMIN (test code = ALB) g/dL 3.4-5.0 GLOBULIN (test code = GLOB) gram/dL 2.7-4.2 ALBUMIN/GLOBULIN RATIO (test code = A/G) 0.75-1.50 BILIRUBIN TOTAL (test code = BILT) mg/dL 0.0-1.0 BILIRUBIN DIRECT (test code = BILD) mg/dL 0.0-0.20 SGOT/AST (test code = AST) IUnit/L 15-37 SGPT/ALT (test code = ALT) IUnit/L 12-78 ALKALINE PHOSPHATASE TOTAL (test code = ALKP) IUnit/L 45-117 [id number] 06:35:00* Test Item Value Reference Range Interpretation Comments LIPASE (test code = LIP) U/L 73.0-393.0 HCG SERUM [id number] 06:35:00* Test Item Value Reference Range Interpretation Comments HCG SERUM QUAL (test code = HCGQL) NEGATIVE URINALYSIS [id number] 06:17:00* Test Item Value Reference Range Interpretation Comments UA COLOR (test code = COLU) Light-Yellow YELLOW UA APPEARANCE (test code = APPU) Cloudy CLEAR A UA GLUCOSE DIPSTICK (test code = DGLUU) NEGATIVE mg/dL NEGATIVE UA BILIRUBIN DIPSTICK (test code = BILU) NEGATIVE mg/dL NEGATIVE UA KETONE DIPSTICK (test code = KETU) NEGATIVE mg/dL NEGATIVE UA SPECIFIC GRAVITY (test code = SGU) 1.012 1.001-1.035 UA BLOOD DIPSTICK (test code = DMITRIY) Negative mg/dL NEGATIVE UA PH DIPSTICK (test code = DEEPIKA) 6.5 5.0-8.0 UA PROTEIN DIPSTICK (test code = PROU) 20 (Trace) mg/dL NEGATIVE A UA UROBILINIOGEN DIPSTICK (test code = URO) Normal mg/dL NEGATIVE UA NITRITE DIPSTICK (test code = HARVINDER) POSITIVE NEGATIVE A UA LEUKOCYTE ESTERASE W REFLEX (test code = LEUUR) 500 Chao/u L (3+) Chao/uL NEGATIVE A UA WBC (test code = WBCU) 21-50 per HPF 0-5 A UA RBC (test code = RBCU) 3-5 #/HPF 0-5 UA WBC CLUMPS (test code = WBCUCL) 7-10 /HPF NONE A UA EPITHELIAL CELLS (test code = EPIU) FEW per HPF FEW UA BACTERIA (test code = BACU) MANY #/HPF NONE A Urine Source? Clean CatchSACRUM [id number] 16:31:00 [place] [address] Patient Name: PRASANNA DAMIAN MR #: [id number] : 1970 Age/Sex: 48/F Req #: [id number] Adm Physician: Ordered by: KITTY RECIO MD Report #: [id number] Location: RAD Room/Bed: Procedure: [id number] DX/SACRUM X-RAY Exam Date: 01/09/19 Exam Time: 1545 REPORT STATUS: Signed Sacrum, 2 views. History: Lumbar radiculopathy. Findings: The soft tissues are normal. Bone mineralization is normal. There is no evidence of fracture or dislocation. There are no lytic or sclerotic lesions. The SI joints are within normal limits. IMPRESSION: Normal sacral series. Signed by: Kris Belcher on 01/09/2019 4:32 PM Dictated By: KRIS BELCHER MD El ectronically Signed By: KRIS BELCHER MD on 01/09/191631 Transcribed By: BYRON GIL on 01/09/19 163 COPY TO: KITTY RECIO MD SP LUMBAR, COMPLETE MIN [id number] 16:27:00 [place] [address] Patient Name: PRASANNA DAMIAN MR #: [id number] : 1970 Age/Sex: 48/F Req #: [id number] Adm Physician: Ordered by: KITTY RECIO MD Report #: [id number] Location: [facility] Room/Bed: Procedure: [id number] DX/SP LUMBAR, COMPLETE MIN 4VW Exam Date: 01/09/19 E xa Time: 1545 REPORT STATUS: Bobbi d Lumbar spine series, 5 views. History: Lumbar radiculopathy. Comparison: None available. Discussion: The paraspinal soft tissues are u nremarkable. The alignment of the lumbar spine is normal. There is no evidence of fracture, spondylolisthesis, or spondylolysis. L5 spina bifida occulta is noted. Surgical clips are noted in the right upper quadrant abdomen. There is mild disc space narrowing at L5-S1. The remaining intervertebral disc spaces are within normal limits. 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 No acute lumbar spine abnormality. Signed by: Kris Belcher on 01/09/2019 4:30 PM Dictated By: KRIS BELCHER MD El ectronically Signed By: KRIS BELCHER MD on 01/09/191629 Transcribed By: BYRON GIL on 01/09/191629 COPY TO: KITTY RECIO MD CT ABD/PEL WO [id number] 22:35:00 [place] [address] Patient Name: PRASANNA DAMIAN MR #: [id number] : 1970 Age/Sex: 48/F Req #: [id number] Adm Physician: Ordered by: YOBANI OWENS MD Report #: [id number] Location: [facility] Room/Bed: Procedure: 0319-0 015 HOPD/CT ABD/PEL WO CONTRAST-HOPD Exam Date: 09/09/18 Exam Time: 7 REPORT STATUS: Signed EXAMINATION: CT of the abdomen and pelvis without contrast. BOSTON HNIQUE: Spiral CT images of the abdomen and pelvis were performed from the kevyn g bases to the lesser trochanters. No intravenous contrast was given per mohit l stone protocol. Coronal and sagittal reformatted images were obtained. C OMPARISON: None. CLINICAL HISTORY:Body pain, can't urinate, right flank pa in, nausea and vomiting DISCUSSION: ABSENCE OF INTRAVENOUS CONTRAST DECREASES SENSITIVITY FOR DETECTION OF FOCAL LESIONS AND VASCULAR PATHOLOGY. ABDOMEN/PELVIS: LOWER THORAX: Unremarkable. HEPATOBILIARY: Mild h epatomegaly, measuring 18.0 cm in the right mid clavicle line. Normal contour. No focal lesions. No intra or extrahepatic biliary ductal dilation. GAL LBLADDER: Cholecystectomy clips. SPLEEN: No splenomegaly. PANCREA S: No focal masses or ductal dilatation. ADRENALS: No adrenal nodules. KIDNEYS/URETERS: No renal, ureteral or bladder calculi. No hydronephrosis or obstruction. No renal contour abnormalities or significant perinephric strandi ng. PELVIC ORGANS/BLADDER: Bladder is unremarkable, without focal lesions, wall thickening or bladder stones. Uterus unremarkable. No adnexal masses. PERITONEUM/RETROPERITONEUM: No free air or fluid. LYMPH NODES: No intra-a bdominal,retroperitoneal, pelvic or inguinal lymphadenopathy. VESSELS: Mi nimal atherosclerotic calcification of the distal aorta at the bifurcation GI TRACT: No bowel dilation or evidence of obstruction. No pericolonic infla mmatory changes. Appendix is well identified and normal in caliber. Stomach is unremarkable. BONES AND SOFT TISSUES: No aggressive lytic lesions. Soft ti ssues are grossly unremarkable. IMPRESSION: 1. No renal, uretera l or bladder calculi, hydronephrosis or obstruction. 2. Mild hepatomegaly. No focal lesions Signed by: Dr. Geronimo Salcido M.D. on 09/09/2018 10:39 PM Dictated By: GERONIMO SALCIDO MD 38 Transcribed By: JUAN on 09/09/182238 COPY TO: YOBANI OWENS MD - CT L-SPINE W/O [id number] 08:26:00 Name: PRASANNA DAMIAN [facility] : 1970 Age/S: 47 / F [address] [facility] Unit #: [id number] Loc: [place] [address] Phys: Donavan Lee PAPER SPOOLER Acct: [id number] Dis Date: Status: UNK PHONE #: Exam Date: 12/15/2017 0752 FAX #: Reason: back pain possible avulsion fracture on xray EXAMS: CPT CODE: [id number] CT L-SPINE W/O CONTRAST 87592 HISTORY: Low back pain and possible avulsion fracture. COMPARISON: X-ray from previous day. The vertebral body heights are maintained. Disc spaces are prese rved. Anatomic alignment. Spondylolysis at L5 level on the right side. No spondylolisthesis. Limbus vertebral body with well-cortic ated margins at L5 level anteriorly. This does not appearance of an acute fracture fragment. SI joints are preserved. No prevertebral soft tissue swelling. At T12-L1 level no disc herniation, canal or foraminal s tenosis. At L1-L2 level no disc herniation, canal or foraminal helene nosis. At L2-L3 level no disc herniation, canal or foraminal steno sis. At L3-L4 level no disc herniation, canal or foraminal stenosi s. At L4-L5 level no disc herniation, canal or foraminal stenosis. Posterior central disc bulge. At L5-S1 level posterior raghu tral disc bulge. Unilateral right spondylolysis. No canal or foraminal s tenosis. Unfused posterior arch of S1 and S2 vertebral bodies. IMPRESSION: Limbus L5 vertebral body. No acute fracture. Anatomic alignment. Scattered disc bulge. at 0826 Repor mack and signed by: Hero Lay M.D. CC: Olya Tan MD; Sukumar Lee NP Technologist:Marissa Recio,RT(R),CT; [place] CTDI: DLP: Trnscb Date/Time: 12/15/2017 (825) t.SDR.TH4 Orig Print D/T: S: 12/15/2017 (2426) PAGE 1 Signed Report - XR L-SPINE /3 [id number] 06:43:00 FAX: Ya Arriaga NP [place]: St: [facility] Name: PRASANNA KAM [facility] : [birth year] Age/S: 47/F Jennifer Souza felicia Unit #: [id number] Loc: [place] [address] Phys: Ya Arriaga NP Acct: [id number] Dis Date: Status: [facility] PHONE #: [phone] Exam Date: 12/15/2017 0625 FAX #: [phone] Reason: pain after lifting EXAMS: CPT CODE: [id number] XR L-SPINE 2/3 VIEWS [id number] HISTORY: Pain Location: C3 FINDINGS: 3 images lumbar spine are provided. Vertebral heights and alignment are maintained. There is a small ossific fragment adjacent to the anterior superior aspect of L5. This is most compatible with small limbus vertebral body. This is more anteriorly positioned than typically visualized. No other fractures demonstrated. No other acute a bnormalities identified. IMPRESSION: 1. Small ossific fragment seen adjacent to the anterior superior aspect of L5 most compatible small limbus vertebrae. This is more anteriorly positioned than typically seen in injury/avulsion may be present. Cons ider follow-up cross-sectional imaging with CT for further evaluation. at 0643 Reported and signed by: Cristo Jacobsen MD CC: Ya Arriaga NP Technologist: RT SOLANGE(Rodolfo) Trnscrd Date/Time/By: 12/15/2017 (0643) : By: [email or web address] Orig Print D/T: S: 12/15/2017 (4684) PAGE 1 Signed Report
== END 2020-02-09 19:25 | disposition home or self-care (01) ==
LOC: ER 16:55
DX: N39.0 Urinary tract infection, site not specified (principal); R30.0 Dysuria; R11.2 Nausea with vomiting, unspecified; B20 Human immunodeficiency virus [HIV] disease
CPT/HCPCS: 36415; 80053; 81001; 84702; 85025; 87086; 87186; 99283

== ENCOUNTER 2020-02-19 09:05 | Emergency (ER) | payer MEDICARE ==
[~2020-02-19] VITALS: Ht 154.9 cm; Wt 60.8 kg
--- NOTE | 2020-02-19 09:49 | NUR ---
Indwelling catheter removed per MD order. 9cc of water removed from balloon and catherter was removed with tip intact. Patient tolerated procedure well
--- NOTE | 2020-02-19 10:37 | Emergency Department Note ---
History of Present Illnes History of Present Illness Chief Complaint: Abdominal Complaints History of Present Illness This is a 49 year old female arrives to the ED with concerns a De Leon catheter requesting removal. Patient states she noticed some blood in her De Leon catheter tubing that has now resolved like the catheter remove it.. Historian: Patient Arrival Mode: Car Onset (how long ago): day(s) Radiation: Reports non-radiation Severity: mild Onset quality: gradual Duration (how long): day(s) Timing of current episode: intermittent Progression: resolved Chronicity: new Context: Denies trauma/injury, Denies new medications Relieving factors: none Associated symptoms: Reports denies other symptoms; Denies fever/chills, Denies headaches, Denies nausea/vomiting Past Medical/Family History Physician Review I have reviewed the patient's past medical and family history. Any updates have been documented here. Past Medical History Recent Fever: Yes Clinical Suspicion of Infectio: Yes New/Unexplained Change in Ment: No Past Medical History: UTI's, HIV, Other Mental Illness Other Medical History: HIV PTSD Past Surgical History: Other Surgery: LITHOTRIPSY, COLON BIOPSY, X3 Social History Smoking Cessation: Former smoker Alcohol Use: Occasional Any Illegal Drug Use: No Physically hurt or threatened: No Other Last Tetanus: UTD Any Pre-Existing Lines (PICC,: No Review of Systems Review of Systems Constitutional: Reports no symptoms EENTM: Reports no symptoms Cardiovascular: Reports no symptoms Respiratory: Reports no symptoms Gastrointestinal: Reports no symptoms Genitourinary: Reports as per HPI, Reports hematuria Musculoskeletal: Reports no symptoms Integumentary: Reports no symptoms Neurological: Reports no symptoms Psychological: Reports no symptoms Endocrine: Reports no symptoms Hematological/Lymphatic: Reports no symptoms Physical Exam Related Data Allergies: Coded Allergies: hydrocodone (Verified Allergy, Severe, HIVES, 02/19/20) metronidazole (Verified Allergy, Intermediate, 02/19/20) sulfamethoxazole (Verified Allergy, Intermediate, 02/19/20) trimethoprim (Verified Allergy, Intermediate, 02/19/20) Penicillins (Verified Allergy, Unknown, 02/19/20) morphine (Verified Adverse Reaction, Unknown, VOMITING, CONSTIPATION, 07/20/19) Triage Vital Signs Vital Signs Date Time Temp Pulse Resp B/P (MAP) Pulse Ox O2 Delivery O2 Flow Rate FiO2 02/19/20 09:08 68 20 112/64 100 Room Air Vital signs reviewed: Yes Physical Exam CONSTITUTIONAL Constitutional: Present well-developed, Present well-nourished HENT HENT: Present normocephalic, Present atraumatic, Present oropharynx clear/moist, Present nose normal HENT L/R: Present left ext ear normal, Present right ext ear normal EYES Eyes: Reports PERRL, Reports conjunctivae normal NECK Neck: Present ROM normal PULMONARY Pulmonary: Present effort normal, Present breath sounds normal CARDIOVASCULAR Cardiovascular: Present regular rhythm, Present heart sounds normal, Present capillary refill normal, Present normal rate GASTROINTESTINAL Abdominal: Present soft, Present nontender, Present bowel sounds normal GENITOURINARY Genitourinary: Present exam deferred SKIN Skin: Present warm, Present dry MUSCULOSKELETAL Musculoskeletal: Present ROM normal NEUROLOGICAL Neurological: Present alert, Present oriented x 3, Present no gross motor or sensory deficits PSYCHOLOGICAL Psychological: Present mood/affect normal, Present judgement normal Results Laboratory Lab results reviewed: Yes Laboratory comments Laboratory Tests Test 02/19/20 09:43 Urine Color Yellow (YELLOW) Urine Clarity Clear (CLEAR) Urine pH 7 (5 - 7) Urine Specific [place] 1.020 (1.010-1.025) Urine Protein Negative (NEGATIVE) Urine Glucose (UA) Negative (NEGATIVE) Urine Ketones Negative (NEGATIVE) Urine Blood Trace (NEGATIVE) Urine Nitrite Negative (NEGATIVE) Urine Bilirubin Negative (NEGATIVE) Urine Urobilinogen 0.2 mg/dL (0.2 - 1) Urine Leukocyte Esterase Moderate (NEGATIVE) Urine RBC 6-10 /HPF (0-5) Urine WBC >50 /HPF (0-5) Urine Epithelial Cells Few /LPF (NONE) Urine Bacteria Moderate /HPF (NONE) Urine Mucus Few (RARE) Assessment & Plan Medical Decision Making MDM 49-year-old female arrived to the ED requesting De Leon catheter removed. Pt has appt scheduled on Saturday with Dr. Powers. Pt able to void after de leon removal, noted to have an infection, culture sent. Pt covered with macrobid and keflex- to be altered based on culture results. Assessment & Plan Final Impression: (1) De Leon catheter problem (2) UTI (urinary tract infection) Depart Disposition: HOME, SELF-CARE Last Vital Signs Date Time Temp Pulse Resp B/P (MAP) Pulse Ox O2 Delivery O2 Flow Rate FiO2 02/19/20 09:08 68 20 112/64 100 Room Air Home Meds Active Scripts Phenazopyridine Hcl (PYRIDIUM) 100 Mg Tablet, 100 MG PO TID, #9 TAB Prov:EV RECINOS, 02/19/20 Cephalexin Monohydrate (KEFLEX) 500 Mg Capsule, 500 MG PO Q6H, #40 TAB 0 Refills Prov:EV RECINOS, 02/19/20 Nitrofurantoin Monohyd/M-Cryst (MACROBID 100 MG CAPSULE) 100 Mg Capsule, 100 MG PO BIDWM, #14 CAP Prov:EV RECINOS, 02/19/20 Ondansetron (ONDANSETRON ODT) 8 Mg Tab.rapdis, 4 MG PO TID PRN for NAUSEA for 3 Days, #10 Prov:YOBANI OWENS MD 09/09/18 Naproxen (NAPROSYN) 500 Mg Tablet, 1 TAB PO BID PRN for PAIN for 7 Days, #14 Prov:YOBANI OWENS MD 09/09/18 Ondansetron Hcl (ZOFRAN) 8 Mg Tablet, 8 MG PO Q8H PRN for NAUSEA AND VOMITING, #12 TBS 0 Refills Prov:LEONID QUEZADA MD 06/21/18 Levofloxacin (LEVAQUIN) 500 Mg Tablet, 750 MG PO DAILY, #7 TAB 0 Refills Prov:LEONID QUEZADA MD 06/21/18 Reported Medications [[place]] No Conflict Check 04/16/12 [Novir] No Conflict Check 04/16/12 [Truv[place]] No Conflict Check 04/16/12 [Trazadone] No Conflict Check 04/16/12 [Cymbalta] No Conflict Check 04/16/12 [[place]] No Conflict Check 04/16/12 EV RECINOS DO Feb 19, 2020 10:38
[2020-02-19 12:00] LABS: CLARITY,URINE CLEAR (CLEAR); COLOR,URINE YELLOW (YELLOW)
[2020-02-19 12:01] LABS: BILIRUBIN,URINE NEGATIVE (NEGATIVE); KETONES,URINE NEGATIVE (NEGATIVE); LEUKOCYTE ESTERASE ,URINE MODERATE (NEGATIVE); NITRITE,URINE NEGATIVE (NEGATIVE); PROTEIN,URINE DIPSTICK NEGATIVE (NEGATIVE); URINE UROBILINOGEN 0.2 mg/dL (0.2 - 1)
--- OUTSIDE RECORDS SUMMARY | 2020-02-19 12:05 | XMS REPORT | Continuity of Care Document ---
Author Author [facility] t Organization [facility] Address [address] [place] [address] Phone Unavailable Care Team Providers Care Piano Regulator Inspector Name Role Phone Wale RECIO MD PCP EV RECINOS Attphys Unavailable Wale RECIO Attphys Unavailable Rodolfo OWENS Attphys Unavailable Payers Payer Name Policy Type Policy Number Effective Date Expiration Date kesha Care Improvement Plus [id number] 2017 00:00:00 [facility] Hmo [id number] [facility] I [facility] Mcr [id number] 2017 00:00:00 [facility] Problems Condition Name Condition Details Condition Category Status Onset Date Resolution Date Last Treatment Date Treating Clinician Comments Source 789.0 - ABDOMINAL PAIN 789. 0 - ABDOMINAL PAIN Active 06/12/2012 [facility] [place] Diagnosis Active 2012-06-12 00:01:00 2012-08-20 11:53:00 Alfredo Jett 625.9 - FEM GENITAL SYM 625. 9 - FEM GENITAL SYM Active 03/31/2012 [facility] [place] Diagnosis Active 2012-03-31 00:01:00 2012-05-16 15:34:00 [facility] V76.12 - SCREEN MAMMOGRA V76. 12 - SCREEN MAMMOGRA Active 03/27/2012 [facility] [place] Diagnosis Active 2012-03-27 00:01:00 2012-03-31 14:55:00 [facility] Allergies, Adverse Reactions, Alerts Allergy Name Allergy Type Status Severity Reaction(s) Onset Date Inacti ve Date Treating Clinician Comments Source Penicillins DA Active U 2019-07-22 00:00:00 [facility] morphine DA Active U 2019-07-22 00:00:00 [facility] hydrocodone DA Active 2019-07-22 00:00:00 [facility] acetaminophen DA Active U 2019-07-22 00:00:00 [facility] sulfamethoxazole DA Active U 2019-07-22 00:00:00 [facility] trimethoprim DA Active 2019-07-22 00:00:00 [facility] Penicillin Allergy to Substance Active 2019-07-20 00:00:00 [facility] Morphine Propensity to adverse reactions Active VOMI TING, CONSTIPATION 2019-07-20 00:00:00 [facility] Hydrocodone Allergy to Substance Active Severe HIVES 2019-07-20 00:00:00 [facility] Acetaminophen Allergy to Substance Active Severe HIVES 2019-07-20 00 :00:00 [facility] Sulfamethoxazole Allergy to Substance Active Moderate 2019-06-25 7 00:00:00 [facility] Trimethoprim Allergy to Substance Active Moderate 2019-07-20 00:00 :00 [facility] Metronidazole Allergy to Substance Active Moderate 2019-07-20 00:0 0:00 [facility] nitrofurantoin DA Active AL 2019-05-26 00:00:00 [facility] hydrocodone bit DA Active AL 2019-04-13 00:00:00 [facility] Penicillins DA Active AL 2019-04-13 00:00:00 [facility] morphine DA Active AL 2019-04-13 00:00:00 [facility] trimethoprim DA Active MO 2019-04-13 00:00:00 [facility] hydrocodone bit DA Active AL 2018-04-21 00:00:00 [facility] Penicillins DA Active AL 2018-04-21 00:00:00 [facility] morphine DA Active AL 2018-04-21 00:00:00 [facility] trimethoprim DA Active MO 2018-04-21 00:00:00 [facility] hydrocodone DA Active AL 2017-12-15 00:00:00 [facility] acetaminophen DA Active AL 2017-12-15 00:00:00 [facility] sulfamethoxazole DA Active AL 2017-12-15 00:00:00 [facility] Penicillins DA Active AL 2017-12-15 00:00:00 [facility] trimethoprim DA Active AL 2017-12-15 00:00:00 [facility] hydrocodone bit DA Active AL 2017-11-09 00:00:00 [facility] Penicillins DA Active AL 2017-11-09 00:00:00 [facility] morphine DA Active AL 2017-11-09 00:00:00 [facility] trimethoprim DA Active MO 2017-11-09 00:00:00 [facility] Medications Ordered Medication Name Filled Medication Name Start Date Stop Da te Current Medication? Ordering Clinician Indication Dosage Frequency Signature (SIG) Comments Components Source Cephalexin Monohydrate (Keflex) 500 Mg Capsule Cephale ronn Monohydrate (Keflex) 500 Mg Capsule 2018-09-09 00:00:00 Yes Yobani Owens [facility] 500 Three Times A Day [facility] Naproxen (Naprosyn) 500 Mg Tablet Naproxen (Naprosyn) 500 Mg Tablet 2018-09-09 00:00:00 Yes Yobani Owens Md 1 Twice A Day as needed for Pain [facility] Ondansetron (Ondansetron Odt) 8 Mg Tab.rapdis Ondanset john (Ondansetron Odt) 8 Mg Tab.rapdis 2018-09-09 00:00:00 Yes Yobani Owens Md 4 Three Times A Day as needed for Nausea [facility] Sulfamethoxazole/Trimethoprim (Bactrim Ds Tablet) 1 Ea ch Tablet, 1 Each Oral Sulfamethoxazole/Trimethoprim (Bactrim Ds Tablet) 1 Each Tablet, 1 Each Oral 2018-09-09 00:00:00 2018-09-09 00:00:00 No Yobani Owens Md 1 Twice A Day [facility] Levofloxacin (Levaquin) 500 Mg Tablet Levofloxacin (Levaquin ) 500 Mg Tablet 2018-06-21 00:00:00 Yes Main Harden Md [address] [facility] Ondansetron Hcl (Zofran) 8 Mg Tablet Ondansetron Hcl (Zofran ) 8 Mg Tablet 2018-06-21 00:00:00 Yes Main Harden [facility] 8 Every 8 Hours as needed for Nausea And Vomiting [facility] Yes [facility] [place] [facility] Novir Novir Yes [facility] Reyataz Reyataz [facility] Trazadone Trazadone Yes [facility] [place] [facility] [facility] Procedures Procedure Date / Time Performed Performing Clinician [facility] e Computed tomography of abdomen and pelvis with contrast 2019 00:00:00 EV RECINOS [facility] X-ray of chest, two views 2019-04-25 00:00:00 EV RECINOS CH I [facility] Encounters Start Date/Time End Date/Time Encounter Type Admission Type Attendi [facility] Facility Care Department Encounter ID Source 2019-07-20 11:36:00 2019-07-20 16:50:00 Departed Emergency Room 1 EV RECINOS [facility] [id number] [facility] 2019-04-25 22:16:00 2019-04-26 00:12:00 Departed Emergency Room 1 EV RECINOS [facility] [id number] [facility] 2019-01-09 15:18:00 2019-01-09 15:18:00 Registered Clinic 3 KITTY CRUZ [facility] [id number] [facility] 2018-09-09 21:28:00 2018-09-09 23:12:00 Departed Emergency Room 1 YOBANI OWENS [facility] [id number] [facility] 2018-06-21 19:52:00 2018-06-21 23:25:00 Departed Emergency Room [facility] [id number] [facility] Results Test Description Test Time Test Comments Results Result Comments Source STREPTOCOCCUS PCR SCREEN 2019-07-22 17:08:00 Test Item STREPTOCOCCUS DYSGALACTIAE (test code = STREPGC) NEGATIVE FOR G/C N EGATIVE STREPA MOLECULAR (test code = STREPAMOL) NEGATIVE FOR GRP A NEGATIV E - CT ABD PELVIS [id number] 16:20:00 Name: PRASANNA DAMIAN [facility] : 1970 Age/S: 49 / F [address] [facility] Unit #: [id number] Loc: [place] [address] Phys: Brandie Sher CARDIAC EXERCISE PHYSIOLOGIST Acct: [id number] Dis Date: Status: REG ER PHONE #: [phone] Exam Date: 07/22/2019 [facility] FAX #: [phone] Reason: diffuse abdominal pain EXAMS: CPT CODE: [id number] CT ABD PELVIS W/CONT 04784 EXAM: CT of the abdomen and pelvis [...] fatty infiltration of the liver. Location code: [facility] at 1620 Reported and signed by: Anthony Rice M.D. CC: Brandie Sher NP Technologist:Brina Nguyen RT(R); CRISTO Conroy CTDI: DLP: Trnscb Date/Time: 07/22/2019 (162) [email or web address] Orig Print D/T: S: 07/22/2019 (1679) PAGE 1 Signed Report BASIC METABOLIC [id number] 15:17:00* Test Item Value Reference Range Interpretation [...] CA) 9.3 mg/dL 8.5-10.1 N HEPATIC FUNCTION [id number] 15:17:00* Test Item Value Reference Range Interpretation [...] reference range due to change in reagent. [id number] 15:17:00* Test Item Value Reference Range Interpretation Comments LIPASE (test code = LIP) 191 U/L 73.0-393.0 N HCG SERUM [id number] 15:17:00* Test Item Value Reference Range Interpretation Comments HCG SERUM QUAL (test code = HCGQL) NEGATIVE NEGATIVE This HCGQL test is NOT applicable for MALE patients.Check with nurse about probable order error.If Tumor Marker Test needed, nurse should order test "HCGTU"(Test #550.67921) [id number] 15:17:00* Test Item Value Reference Range Interpretation Comments TROPONIN-I (test code = TROPI) <0.015 ng/mL 0-0.045 N BASIC METABOLIC [id number] 14:55:00* Test Item Value Reference Range Interpretation [...] code = CA) mg/dL 8.5-10.1 HEPATIC FUNCTION [id number] 14:55:00* Test Item Value Reference Range Interpretation [...] TOTAL (test code = ALKP) IUnit/L 45-117 [id number] 14:55:00* Test Item Value Reference Range Interpretation Comments LIPASE (test code = LIP) U/L 73.0-393.0 HCG SERUM [id number] 14:55:00* Test Item Value Reference Range Interpretation Comments HCG SERUM QUAL (test code = HCGQL) NEGATIVE NEGATIVE This HCGQL test is NOT applicable for MALE patients.Check with nurse about probable order error.If Tumor Marker Test needed, nurse should order test "HCGTU"(Test #550.30115) [id number] 14:55:00* Test Item Value Reference Range Interpretation Comments TROPONIN-I (test code = TROPI) ng/mL 0-0.045 BASIC METABOLIC [id number] 14:55:00* Test Item Value Reference Range Interpretation [...] code = CA) mg/dL 8.5-10.1 HEPATIC FUNCTION [id number] 14:55:00* Test Item Value Reference Range Interpretation [...] TOTAL (test code = ALKP) IUnit/L 45-117 [id number] 14:55:00* Test Item Value Reference Range Interpretation Comments LIPASE (test code = LIP) U/L 73.0-393.0 HCG SERUM [id number] 14:55:00* Test Item Value Reference Range Interpretation Comments HCG SERUM QUAL (test code = HCGQL) NEGATIVE NEGATIVE This HCGQL test is NOT applicable for MALE patients.Check with nurse about probable order error.If Tumor Marker Test needed, nurse should order test "HCGTU"(Test #550.10682) [id number] 14:55:00* Test Item Value Reference Range Interpretation Comments TROPONIN-I (test code = TROPI) ng/mL 0-0.045 MONO [id number] 14:53:00* Test Item Value Reference Range Interpretation Comments MONO SCREEN (test code = MONO) POSITIVE NEGATIVE A URINALYSIS [id number] 14:52:00* Test Item Value Reference Range Interpretation [...] per HPF NONE Urine Source? Clean CatchURINALYSIS [id number] 14:51:00* Test Item Value Reference Range Interpretation [...] HPF NONE Urine Source? Clean CatchCBC W/O [id number] 14:49:00* Test Item Value Reference Range Interpretation [...] fL 6.7-11.0 N - XR CHEST 1 [id number] 12:48:00 FAX: Brandei Sher NP [place]: B St: PRE Name: PRASANNA KAM [facility] : [birth year] Age/S: 49/F [address] [facility] Unit #: [id number] Loc: N[place] [address] Phys: Brandie Sher NP Acct: [id number] Dis Date: Status: PRE ER PHONE #: [phone] Exam Date: 07/22/2019 1243 FAX #: [phone] Reason: Abdominal Pain EXAMS: CPT CODE: [id number] XR CHEST 1 V 16651 REASON FOR EXAM: Abdominal Pain Exam Order [...] y. IMPRESSION: No acute cardiopulmonary process. Location: [facility] at 8914 Reported and signed by: Gilbert Orozco MD CC: Brandie Sher NP Technologist: RT OLEKSANDR(Rodolfo) Trnscrd D ate/Time/By: 07/22/2019 (4930) : By: [email or web address] Orig Print D/T: S: 06/25 (3770) PAGE [address] ABDOMEN/PELVIS [id number] 16:11:00 [place] [address] Patient Name: PRASANNA DAMIAN MR #: [id number] : 1970 Age/Sex: 49/F Req #: [id number] Adm Physician: Ordered by: EV RECINOS DO Report #: [id number] Location: ER Room/Bed: Procedure: 0127-[address]/CT [...] Signed By: EMMY ROSENBAUM MD on 07/20/19 1615 Transcribed By: JUAN on 1615 COPY TO: EV RECINOS DO Urine [id number] 14:23:00* Test Item Value Reference Range Interpretation Comments Urine WBC (test code = 5821-4) 0-5 0-5 [facility] [id number] 14:23:00* Test Item Value Reference Range Interpretation Comments Urine RBC (test code = 74839-3) NONE 0-5 [facility] America[facility]rine [id number] 14:23:00* Test Item Value Reference Range Interpretation Comments Urine Bacteria (test code = 60540-2) NONE NONE [facility] America[facility] Epithelial [id number] 14:23:00 * Test Item Value Reference Range Interpretation Comments Urine Epithelial Cells (test code = 69620-4) RARE NONE [facility] AmericaUrine [id number] 14:05:00* Test Item Value Reference Range Interpretation Comments Urine Color (test code = 5778-6) YELLOW YELLOW [facility] AmericaUrine [id number] 14:05:00* Test Item Value Reference Range Interpretation Comments Urine Clarity (test code = 43125-9) CLEAR CLEAR [facility] AmericaUrine Specific [id number] 14:05:00 * Test Item Value Reference Range Interpretation Comments Urine Specific [place] (test code = 5811-5) 1.010 1.010-1.02 5 [facility] AmericaUrine [id number] 14:05:00* Test Item Value Reference Range Interpretation Comments Urine pH (test code = 17196-7) 6 5-7 [facility] America[facility] Leukocyte [id number] 14:05:00* Test Item Value Reference Range Interpretation Comments Urine Leukocyte Esterase (test code = 5799-2) NEGATIVE NEGATIVE [facility] AmericaUrine [id number] 14:05:00* Test Item Value Reference Range Interpretation Comments Urine Nitrite (test code = 18295-3) NEGATIVE NEGATIVE [facility] AmericaUrine [id number] 14:05:00* Test Item Value Reference Range Interpretation Comments Urine Protein (test code = 5804-0) NEGATIVE NEGATIVE [facility] AmericaUrine Glucose (UA)2019-07-20 14:05:00* Test Item Value Reference Range Interpretation Comments Urine Glucose (UA) (test code = 2349-9) NEGATIVE NEGATIVE [facility] AmericaUrine [id number] 14:05:00* Test Item Value Reference Range Interpretation Comments Urine Ketones (test code = 01729-5) NEGATIVE NEGATIVE [facility] AmericaUrine [id number] 14:05:00* Test Item Value Reference Range Interpretation Comments Urine Urobilinogen (test code = 27782-8) 0.2 0.2-1 [facility] AmericaUrine [id number] 14:05:00* Test Item Value Reference Range Interpretation Comments Urine Bilirubin (test code = 1978-6) NEGATIVE NEGATIVE [facility] AmericaUrine [id number] 14:05:00* Test Item Value Reference Range Interpretation Comments Urine Blood (test code = 44735-3) NEGATIVE NEGATIVE [facility] AmericaUrine [id number] 14:05:00* Test Item Value Reference Range Interpretation Comments Urine Test (test code = 2106-3) NEGATIVE NEGATIVE [facility] AmericaCreatine Kinase [id number] 13:55:00* Test Item Value Reference Range Interpretation Comments Creatine Kinase MB (test code = 44495-6) 0.40 0-5.0 [facility] AmericaTroponin [id number] 13:55:00* Test Item Value Reference Range Interpretation Comments Troponin I (test code = TWI5398) < 0.001 0-0.300 [facility]ics[facility] [id number] 13:22:00* Test Item Value Reference Range Interpretation Comments Sodium Level (test code = 2951-2) 136 136-145 [facility] AmericaPotassium [id number] 13:22:00* Test Item Value Reference Range Interpretation Comments Potassium Level (test code = 2823-3) 3.8 3.5-5.1 [facility] AmericaChloride [id number] 13:22:00* Test Item Value Reference Range Interpretation Comments Chloride Level (test code = 2075-0) 100 98-107 [facility] AmericaCarbon Dioxide [id number] 13:22:00* Test Item Value Reference Range Interpretation Comments Carbon Dioxide Level (test code = 2028-9) 27 22-29 [facility] AmericaAnion [id number] 13:22:00* Test Item Value Reference Range Interpretation Comments Anion Gap (test code = 88554-9) 12.8 8-16 [facility] AmericaBlood Urea [id number] 13:22:00* Test Item Value Reference Range Interpretation Comments Blood Urea Nitrogen (test code = 3094-0) 7 7-26 [facility] AmericaCreatinine2020-01-27 13:22:00* Test Item Value Reference Range Interpretation Comments Creatinine (test code = 2160-0) 0.70 0.57-1.11 [facility] AmericaBUN/Creatinine [id number] 13:22:00* Test Item Value Reference Range Interpretation Comments BUN/Creatinine Ratio (test code = 3097-3) 10 6- [facility]als of AmericaEstimat Glomerular Filtration Rate 2019-07-20 13:22:00* Test Item Value Reference Range Interpretation Comments Estimat Glomerular Filtration Rate (test code = 723925638) > 60 >60 Ranges were taken from the National Kidney Disease Education Program and the [facility] Kidney Foundation literature.Reference ranges:60 or greater: Mjsnbh71-76 ( for 3 consecutive months): Chronic kidney disease 15 or less: Kidney failureSurgery Specialty Hospitals of AmericaGlucose Ywfxf9793-94-61 13:22:00* Test Item Value Reference Range Interpretation Comments Glucose Level (test code = BYQ1821) 85 74-118 [facility] AmericaCalcium Ojsxx5960-00-10 13:22:00* Test Item Value Reference Range Interpretation Comments Calcium Level (test code = 22669-9) 9.3 8.4-10.2 [facility] of AmericaTotal Ncmfortau9766-05-17 13:22:00* Test Item Value Reference Range Interpretation Comments Total Bilirubin (test code = 1975-2) 0.5 0.2-1.2 [facility]als of AmericaAspartate Amino Transf (AST/SGOT) 2019-07-20 13:22:00* Test Item Value Reference Range Interpretation Comments Aspartate Amino Transf (AST/SGOT) (test code = Aspartate Amino Transf (AST/SGOT)) 117 5-34 H [facility] Hospitals of AmericaAlanine Aminotransferase (ALT/SGPT) 2019-07-20 13:22:00* Test Item Value Reference Range Interpretation Comments Alanine Aminotransferase (ALT/SGPT) (test code = 1742-6) 152 0-55 H [facility]als of AmericaTotal [id number] 13:22:00* Test Item Value Reference Range Interpretation Comments Total Protein (test code = 2885-2) 8.0 6.5-8.1 [facility] of AmericaAlbumin2020-01-27 13:22:00* Test Item Value Reference Range Interpretation Comments Albumin (test code = 1751-7) 4.0 3.5-5.0 [facility]als of AmericaGlobulin2020-01-27 13:22:00* Test Item Value Reference Range Interpretation Comments Globulin (test code = 91201-8) 4.0 2.3-3.5 H [facility]als [facility] AmericaAlbumin/Globulin [id number] 13:22:00 * Test Item Value Reference Range Interpretation Comments Albumin/Globulin Ratio (test code = 1759-0) 1.0 0.8-2.0 [facility]als of AmericaAlkaline Kqhvxhjnite4245-57-16 13:22:00* Test Item Value Reference Range Interpretation Comments Alkaline Phosphatase (test code = 6768-6) 133 40-150 [facility] of AmericaCreatine Ptyxxf3387-23-78 13:22:00* Test Item Value Reference Range Interpretation Comments Creatine Kinase (test code = 2157-6) 37 29-168 [facility] of AmericaLipase2020-01-27 13:22:00* Test Item Value Reference Range Interpretation Comments Lipase (test code = 3040-3) 26 8-78 [facility]als of AmericaInfluenza Virus Types A,B Antigen 2019-07-20 13:03:00* Test Item Value Reference Range Interpretation Comments Influenza Virus Types A,B Antigen (test code = 88401-8) NEGATIVE NEGATIVE [facility] of AmericaWhite Blood [id number] 12:59:00* Test Item Value Reference Range Interpretation Comments White Blood Count (test code = 6690-2) 3.09 4.8-10.8 L [facility]als of AmericaRed Blood Vfedl7211-03-93 12:59:00* Test Item Value Reference Range Interpretation Comments Red Blood Count (test code = 789-8) 4.17 3.6-5.1 [facility] AmericaHemoglobin2020-01-27 12:59:00* Test Item Value Reference Range Interpretation Comments Hemoglobin (test code = 77996-8) 11.8 12.0-16.0 L [facility]als of AmericaHematocrit2020-01-27 12:59:00* Test Item Value Reference Range Interpretation Comments Hematocrit (test code = 4544-3) 35.9 34.2-44.1 [facility]als of AmericaMean Corpuscular Pbipvm6872-49-25 12:59:00* Test Item Value Reference Range Interpretation Comments Mean Corpuscular Volume (test code = 787-2) 86.1 81-99 [facility]als of AmericaMean Corpuscular Vqnqfhywyv6327-02-03 12:59:00* Test Item Value Reference Range Interpretation Comments Mean Corpuscular Hemoglobin (test code = 785-6) 28.3 28-32 [facility] Hospitals of AmericaMean Corpuscular Hemoglobin Concent 2019-07-20 12:59:00* Test Item Value Reference Range Interpretation Comments Mean Corpuscular Hemoglobin Concent (test code = 786-4) 32.9 31-35 [facility] of AmericaRed Cell Distribution Qfbti2951-39-28 12:59:00* Test Item Value Reference Range Interpretation Comments Red Cell Distribution Width (test code = 76453-1) 12.5 11.7 -14.4 [facility] Hospitals of AmericaPlatelet Xlwsg4636-47-27 12:59:00* Test Item Value Reference Range Interpretation Comments Platelet Count (test code = 777-3) 173 140-360 [facility] AmericaNeutrophils (%) (Auto)2019-07-20 12:59:00 * Test Item Value Reference Range Interpretation Comments Neutrophils (%) (Auto) (test code = 88938-1) 70.3 38.7-80.0 [facility] of AmericaLymphocytes (%) (Auto)2019-07-20 12:59:00 * Test Item Value Reference Range Interpretation Comments Lymphocytes (%) (Auto) (test code = 736-9) 14.9 18.0-39.1 L [facility] AmericaMonocytes (%) (Auto)2019-07-20 12:59:00* Test Item Value Reference Range Interpretation Comments Monocytes (%) (Auto) (test code = 5905-5) 10.0 4.4-11.3 [facility] AmericaEosinophils (%) (Auto)2019-07-20 12:59:00 * Test Item Value Reference Range Interpretation Comments Eosinophils (%) (Auto) (test code = 713-8) 4.2 0.0-6.0 [facility] AmericaBasophils (%) (Auto)2019-07-20 12:59:00* Test Item Value Reference Range Interpretation Comments Basophils (%) (Auto) (test code = 706-2) 0.3 0.0-1.0 [facility]als of AmericaIM GRANULOCYTES %2019-07-20 12:59:00* Test Item Value Reference Range Interpretation Comments IM GRANULOCYTES % (test code = IM GRANULOCYTES %) 0.3 0.0- 1.0 [facility] AmericaNeutrophils # (Auto)2019-07-20 12:59:00* Test Item Value Reference Range Interpretation Comments Neutrophils # (Auto) (test code = 751-8) 2.2 2.1-6.9 [facility] AmericaLymphocytes # (Auto)2019-07-20 12:59:00* Test Item Value Reference Range Interpretation Comments Lymphocytes # (Auto) (test code = 99775-6) 0.5 1.0-3.2 L [facility] AmericaMonocytes # (Auto)2019-07-20 12:59:00* Test Item Value Reference Range Interpretation Comments Monocytes # (Auto) (test code = 742-7) 0.3 0.2-0.8 [facility] AmericaEosinophils # (Auto)2019-07-20 12:59:00* Test Item Value Reference Range Interpretation Comments Eosinophils # (Auto) (test code = 711-2) 0.1 0.0-0.4 [facility] AmericaBasophils # (Auto)2019-07-20 12:59:00* Test Item Value Reference Range Interpretation Comments Basophils # (Auto) (test code = 704-7) 0.0 0.0-0.1 [facility] of AmericaAbsolute Immature Granulocyte (auto 2019-07-20 12:59:00* Test Item Value Reference Range Interpretation Comments Absolute Immature Granulocyte (auto (angela t code = Absolute Immature Granulocyte (auto) 0.01 0-0.1 [facility] NATRIURETIC [id number] 17:17:00* Test Item Value Reference Range Interpretation Comments B-TYPE NATRIURETIC PEPTIDE (test code = BNP) 86.25 pgram/mL 0-100 N BASIC METABOLIC [id number] 17:09:00* Test Item Value Reference Range Interpretation [...] CA) 9.4 mg/dL 8.5-10.1 N HCG SERUM [id number] 17:09:00* Test Item Value Reference Range Interpretation Comments HCG SERUM QUAL (test code = HCGQL) NEGATIVE NEGATIVE This HCGQL test is NOT applicable for MALE patients.Check with nurse about probable order error.If Tumor Marker Test needed, nurse should order test "HCGTU"(Test #550.90351) [id number] 17:09:00* Test Item Value Reference Range Interpretation Comments TROPONIN-I (test code = TROPI) <0.015 ng/mL 0-0.045 N HEPATIC FUNCTION [id number] 17:05:00* Test Item Value Reference Range Interpretation [...] reference range due to change in reagent. [id number] 17:05:00* Test Item Value Reference Range Interpretation Comments LIPASE (test code = LIP) 79 U/L 73.0-393.0 N [id number] 17:00:00* Test Item Value Reference Range Interpretation [...] skin infections -Liver cirrhosis - BASIC METABOLIC [id number] 16:57:00* Test Item Value Reference Range Interpretation [...] code = CA) mg/dL 8.5-10.1 HCG SERUM [id number] 16:57:00* Test Item Value Reference Range Interpretation Comments HCG SERUM QUAL (test code = HCGQL) NEGATIVE NEGATIVE This HCGQL test is NOT applicable for MALE patients.Check with nurse about probable order error.If Tumor Marker Test needed, nurse should order test "HCGTU"(Test #550.44612) [id number] 16:57:00* Test Item Value Reference Range Interpretation Comments TROPONIN-I (test code = TROPI) ng/mL 0-0.045 BASIC METABOLIC [id number] 16:57:00* Test Item Value Reference Range Interpretation [...] code = CA) mg/dL 8.5-10.1 HCG SERUM [id number] 16:57:00* Test Item Value Reference Range Interpretation Comments HCG SERUM QUAL (test code = HCGQL) NEGATIVE NEGATIVE This HCGQL test is NOT applicable for MALE patients.Check with nurse about probable order error.If Tumor Marker Test needed, nurse should order test "HCGTU"(Test #550.37007) [id number] 16:57:00* Test Item Value Reference Range Interpretation Comments TROPONIN-I (test code = TROPI) ng/mL 0-0.045 CBC W/O [id number] 16:49:00* Test Item Value Reference Range Interpretation [...] MPV) 9.7 fL 6.7-11.0 N CBC W/O [id number] 16:48:00* Test Item Value Reference Range Interpretation [...] MPV) fL 6.7-11.0 - XR CHEST 1 [id number] 16:32:00 FAX: Aftab Jacobo MD [phone] [place]: B St: REG Name: PRASANNA KAM [facility] : [birth year] Age/S: 49/F [address] Unit #: [id number] Loc: [place] [address] Phys: Aftab Jacobo MD Acct: [id number] Dis Date: Status: REG ER PHONE #: [phone] Exam Date: 05/27/2019 1557 FAX #: [phone] Reason: Shortness of Breath EXAMS: CPT CODE: [id number] XR CHEST 1 V 12084 HISTORY: Shortness of breath. COMPARISON: None available. Location: [facility]. No acute infiltrates, effusion or congestion is noted. The cardiac and mediastinal silhouette are within normal limits. IMPRESSI ON: No acute infiltrates, effusion or congestion. at 1632 Reported and signed by: Hero Lay M.D. CC: Aftab Jacobo MD Technologist: Georgina Milton(Rodolfo) Trnscrd Date/Time/By: 05/27/2019 (394) : By: [email or web address] Orig Print D/T: S: 05/27/2019 (8486) PAGE 1 Signed Report - XR CHEST 1 [id number] 16:32:00 FAX: Aftab Jacobo MD [phone] [place]: St: DEP Name: PRASANNA KAM [facility] : [birth year] Age/S: 49/F [address] [facility] Unit #: [id number] Loc: [place] [address] Phys: Aftab Jacobo MD Acct: [id number] Dis Date: Status: DEP ER PHONE #: [phone] Exam Date: 05/27/2019 1557 FAX #: [phone] Reason: Shortness of Breath EXAMS: CPT CODE: [id number] XR CHEST 1 V 84533 HISTORY: Shortness of breath. COMPARISON: None available. Location: [facility]. No acute infiltrates, effusion or congestion is noted. The cardiac and mediastinal silhouette are within normal limits. IMPRESSI ON: No acute infiltrates, effusion or congestion. at 1632 Reported and signed by: Hero Lay M.D. CC: Aftab Jacobo MD Technologist: Georgina Arrieta) Trnscrd Date/Time/By: 05/27/2019 (0545) : By: [email or web address] Orig Print D/T: S: 05/27/2019 (7647) PAGE 1 Signed Report URINALYSIS [id number] 16:31:00* Test Item Value Reference Range Interpretation [...] #/HPF NONE A Urine Source? Clean CatchURINALYSIS [id number] 16:25:00* Test Item Value Reference Range Interpretation [...] per HPF NONE Urine Source? Clean CatchURINALYSIS [id number] 01:12:00* Test Item Value Reference Range Interpretation [...] HPF NONE A Urine Source? Clean CatchURINALYSIS [id number] 00:54:00* Test Item Value Reference Range Interpretation [...] Source? Clean Catch- CT ABD PELVIS W/O [id number] 00:21:00 Name: PRASANNA DAMIAN [facility] : 1970 Age/S: 49 / F [address] [facility] Unit #: [id number] Loc: [place] [address] Phys: Maame Sher NP Acct: [id number] Di s Date: Status: REG ER PHONE #: [phone] Exam Date: 05/27/2019 0010 FAX #: Reason: Right flank pain, uti, and nausea and vomiting EXAMS: CPT CODE: [id number] CT ABD PELVIS W/O CONT 61290 EXAM: - CT ABD PELVIS W/O CONT [...] Signed Report (CONTINUED) Name : PRASANNA DAMIAN [facility] : [birth year] Age/S: 49 / F [address] [facility] Unit #: [id number] Loc: [place] [address] Phys: Brandie Sher CARDIAC EXERCISE PHYSIOLOGIST Acct: [id number] Dis Date: Status: REG ER PHONE #: Exam Date: 05/27/2019 0010 FAX #: [phone] Reason: Right flank pain, uti, and nausea and vomiting EXAMS: CPT CODE: [id number] CT ABD PELVIS W/O CONT 18033 <Continued> Bones/Soft Tissues: 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 [id number] 00:11:00* Test Item Value Reference Range Interpretation Comments LIPASE (test code = LIP) 120 U/L 73.0-393.0 N HCG SERUM [id number] 00:11:00* Test Item Value Reference Range Interpretation Comments HCG SERUM QUAL (test code = HCGQL) NEGATIVE NEGATIVE This HCGQL test is NOT applicable for MALE patients.Check with nurse about probable order error.If Tumor Marker Test needed, nurse should order test "HCGTU"(Test #550.96191) [id number] 00:11:00* Test Item Value Reference Range Interpretation Comments TROPONIN-I (test code = TROPI) <0.015 ng/mL 0-0.045 N BASIC METABOLIC [id number] 00:07:00* Test Item Value Reference Range Interpretation [...] code = CA) mg/dL 8.5-10.1 HEPATIC FUNCTION [id number] 00:07:00* Test Item Value Reference Range Interpretation [...] TOTAL (test code = ALKP) IUnit/L 45-117 [id number] 00:07:00* Test Item Value Reference Range Interpretation Comments LIPASE (test code = LIP) U/L 73.0-393.0 HCG SERUM [id number] 00:07:00* Test Item Value Reference Range Interpretation Comments HCG SERUM QUAL (test code = HCGQL) NEGATIVE NEGATIVE This HCGQL test is NOT applicable for MALE patients.Check with nurse about probable order error.If Tumor Marker Test needed, nurse should order test "HCGTU"(Test #550.64673) [id number] 00:07:00* Test Item Value Reference Range Interpretation Comments TROPONIN-I (test code = TROPI) ng/mL 0-0.045 BASIC METABOLIC [id number] 00:06:00* Test Item Value Reference Range Interpretation [...] code = CA) mg/dL 8.5-10.1 HEPATIC FUNCTION [id number] 00:06:00* Test Item Value Reference Range Interpretation [...] TOTAL (test code = ALKP) IUnit/L 45-117 [id number] 00:06:00* Test Item Value Reference Range Interpretation Comments LIPASE (test code = LIP) U/L 73.0-393.0 HCG SERUM [id number] 00:06:00* Test Item Value Reference Range Interpretation Comments HCG SERUM QUAL (test code = HCGQL) NEGATIVE [id number] 00:06:00* Test Item Value Reference Range Interpretation Comments TROPONIN-I (test code = TROPI) ng/mL 0-0.045 CBC W/O [id number] 23:44:00* Test Item Value Reference Range Interpretation [...] MPV) 9.6 fL 6.7-11.0 N CBC W/O [id number] 23:43:00* Test Item Value Reference Range Interpretation [...] code = MPV) fL 6.7-11.0 NECK SOFT [id number] 23:43:00 [place] [address] Patient Name: PRASANNA DAMIAN MR #: [id number] : 1970 Age/Sex: 49/F Req #: [id number] Adm Physician: Ordered by: EV RECINOS DO Report #: [id number] Location: ER Room/Bed: Procedure: 36 DX/NECK SOFT TISSUE Exam [...] P M Dictated By: WILL OSORIO DO 43 Transcribed By: JUAN on 04/25/192343 COPY T O: EV RECINOS DO CHEST 2 [id number] 23:42:00 [place] [address] Patient Name: PRASANNA DAMIAN MR #: [id number] : 1970 Age/Sex: 49/F Req #: [id number] Adm Physician: Ordered by: EV RECINOS DO Report #: [id number] Location: ER Room/Bed: Procedure: 35 DX/CHEST 2 [...] OSORIO DO 42 Transcribed By: JUAN on 04/25/192342 COPY TO: EV RECINOS DO - CT ABD PELVIS W/O [id number] 07:23:00 Name: PRASANNA DAMIAN [facility] : 1970 Age/S: 49 / F [address] [facility] Unit #: [id number] Loc: [place] [address] Phys: Kaylah Mcduffie DO Acct: [id number] Di s Date: Status: REG ER PHONE #: [phone] Exam Date: 04/13/2019623 FAX #: Reason: flank pain, r/o kidney stone EXAMS: CPT CODE: [id number] CT ABD PELVIS W/O CONT 92616 HISTORY: flank pain, r/o kidney stone TECHNIQUE: [...] 1 Signed Report (CONTINUED) [facility] 1970 Age/S: 49 / F [address] [facility] Unit #: [id number] Loc: [place], [place] [address] Phys: Tracy Mcduffie DO Acct: [id number] Dis Date: Status: REG ER PHONE #: [phone] Exam Date: 04/13 FAX #: [phone] Reason: flank pain, r/o kidney stone EXAMS: CPT CODE: [id number] CT ABD PELVIS W/O CONT 74 176 <Continued> CC: Tracy Mcduffie DO Technologist:Marissa Recio,RT(R),CT CTDI: DLP: Trnscb Date/Time: 04/13/2019 (722) [email or web address] Orig Print D/T: S: 04/13/2019 (725) PAGE 2 Signed Report BASIC METABOLIC [id number] 06:50:00* Test Item Value Reference Range Interpretation [...] CA) 9.4 mg/dL 8.5-10.1 N HEPATIC FUNCTION [id number] 06:50:00* Test Item Value Reference Range Interpretation [...] reference range due to change in reagent. [id number] 06:50:00* Test Item Value Reference Range Interpretation Comments LIPASE (test code = LIP) 96 U/L 73.0-393.0 N HCG SERUM [id number] 06:50:00* Test Item Value Reference Range Interpretation Comments HCG SERUM QUAL (test code = HCGQL) NEGATIVE NEGATIVE This HCGQL test is NOT applicable for MALE patients.Check with nurse about probable order error.If Tumor Marker Test needed, nurse should order test "HCGTU"(Test #550.33466) CBC W/O [id number] 06:44:00* Test Item Value Reference Range Interpretation [...] MPV) 9.9 fL 6.7-11.0 N CBC W/O [id number] 06:40:00* Test Item Value Reference Range Interpretation [...] code = MPV) fL 6.7-11.0 BASIC METABOLIC [id number] 06:37:00* Test Item Value Reference Range Interpretation [...] code = CA) mg/dL 8.5-10.1 HEPATIC FUNCTION [id number] 06:37:00* Test Item Value Reference Range Interpretation [...] TOTAL (test code = ALKP) IUnit/L 45-117 [id number] 06:37:00* Test Item Value Reference Range Interpretation Comments LIPASE (test code = LIP) U/L 73.0-393.0 HCG SERUM [id number] 06:37:00* Test Item Value Reference Range Interpretation Comments HCG SERUM QUAL (test code = HCGQL) NEGATIVE NEGATIVE This HCGQL test is NOT applicable for MALE patients.Check with nurse about probable order error.If Tumor Marker Test needed, nurse should order test "HCGTU"(Test #550.27581) BASIC METABOLIC [id number] 06:35:00* Test Item Value Reference Range Interpretation [...] code = CA) mg/dL 8.5-10.1 HEPATIC FUNCTION [id number] 06:35:00* Test Item Value Reference Range Interpretation [...] TOTAL (test code = ALKP) IUnit/L 45-117 [id number] 06:35:00* Test Item Value Reference Range Interpretation Comments LIPASE (test code = LIP) U/L 73.0-393.0 HCG SERUM [id number] 06:35:00* Test Item Value Reference Range Interpretation Comments HCG SERUM QUAL (test code = HCGQL) NEGATIVE URINALYSIS [id number] 06:17:00* Test Item Value Reference Range Interpretation [...] #/HPF NONE A Urine Source? Clean CatchSACRUM [id number] 16:31:00 [place] [address] Patient Name: PRASANNA DAMIAN MR #: [id number] : 1970 Age/Sex: 48/F Req #: [id number] Adm Physician: Ordered by: KITTY RECIO MD Report #: [id number] Location: [facility] Room/Bed: Procedure: 7114-7504 DX/SACRUM X-RAY Exam Date: 01/09/19 Exam Time: [...] on 01/09/2019 4:32 PM Dictated By: KRIS Navarrete ectronically Signed By: KRIS BELCHER MD on 01/09/191631 Transcribed By: BYRON GIL on 01/09/191631 COPY TO: KITTY RECIO MD SP LUMBAR, COMPLETE MIN [id number] 16:27:00 [place] [address] Patient Name: PRASANNA DAMIAN MR #: [id number] : 1970 Age/Sex: 48/F Req #: [id number] Adm Physician: Ordered by: KITTY RECIO MD Report #: [id number] Location: [facility] Room/Bed: Procedure: 5616-5142 DX/SP LUMBAR, COMPLETE MIN 4VW Exam Date: 01/09/19 E xam Time: 1545 REPORT STATUS: Bobbi d Lumbar [...] on 01/09/2019 4:30 PM Dictated By: KRIS TRESSA MD El ectronically Signed By: KRIS BELCHER MD on 01/09/19 163 Transcribed By: BYRON GIL on 01/09/191629 COPY TO: KITTY RECIO MD CT ABD/PEL WO [id number] 22:35:00 [place] [address] Patient Name: PRASANNA DAMIAN MR #: [id number] : 1970 Age/Sex: 48/F Req #: [id number] Adm Physician: Ordered by: YOBANI OWENS MD Report #: [id number] Location: [facility] Room/Bed: Procedure: 0319-0 015 HOPD/CT ABD/PEL WO CONTRAST-HOPD Exam Date: 09/09/18 Exam Time: 2216 REPORT STATUS: Signed EXAMINATION: CT of the [...] YOBANI OWENS MD - CT L-SPINE W/O [id number] 08:26:00 Name: RICKIEPRASANNA [facility] : 1970 Age/S: 47 / F [address] [facility] Unit #: [id number] Loc: [place] [address] Phys: Donavan Lee CARDIAC EXERCISE PHYSIOLOGIST Acct: [id number] Dis Date: Status: UNK PHONE #: Exam Date: 12/15/2017 0752 FAX #: Reason: back pain possible avulsion fracture on xray EXAMS: CPT CODE: [id number] CT L-SPINE W/O CONTRAST 53744 HISTORY: Low back pain and possible avulsion [...] Olya Tan MD; Sukumar Lee NP Technologist:Marissa RecioRT(R),CT; [place] CTDI: DLP: Trnscb Date/Time: 12/15/2017 (825) [email or web address] Orig Print D/T: S: 12/15/2017 (5403) PAGE 1 Signed Report - XR L-SPINE 2/3 [id number] 06:43:00 FAX: Ya Arriaga NP [place]: St: TERESA Name: PRASANNA KAM [facility] : [birth year] Age/S: 47/F Jennifer [place] felicia Unit #: [id number] Loc: [place] [address] Phys: Ya Arriaga NP Acct: [id number] Dis Date: Status: UNK PHONE #: [phone] Exam Date: 12/15/2017 06 FAX #: [phone] Reason: pain after lifting EXAMS: CPT CODE: [id number] XR L-SPINE 2/3 VIEWS 69155 HISTORY: Pain Location: C3 FINDINGS: 3 images [...] By: [email or web address] Orig Print D/T: S: 12/15/2017 (0620) PAGE 1 Signed Report
--- OUTSIDE RECORDS SUMMARY | 2020-02-19 12:05 | XMS REPORT | Continuity of Care Document ---
Author Author Alfredo Johnie LindquistPRASANNA [facility] [place] Address Unknown Phone Unavailable Care Team Providers Care Office Chair Assembler Name Role Phone [employer] Unavailable Un available Problems Problem Status Onset Date Classification Date Reported Comments Source 789.0 - ABDOMINAL PAIN Active 06/12/2012 [facility] [place] 625.9 - FEM GENITAL SYM Active 03/31/2012 [facility] [place] V76.12 - SCREEN MAMMOGRA Active 03/27/2012 [facility] [place] Medications No Data Provided for This Section [...] made to exam dated: 03/31/2012 mammogram - [facility]. The tissue of both breasts is heterogeneously dense, which could obscure detection of small masses. No significant masses, calcifications, or other findings are seen in either breast. There has been no significant interval change. IMPRESSION: NEGATIVE There is no mammographic evidence of malignancy. A screening mammogram in one year is recommended. Dr. Martha Patino D.O. ht/penrad:06/25/2013 14:34:09 Home Care Liaison: Maggie Ba RT(R)(M), [facility] This exam was dictated and interpreted by [id number] for SCARLET Flannery. letter sent: Normal exam [...] or MRI for further evaluation. 06/22/2013 [facility] [place] Spine sacrum AP and Lat SACRUM SERIES CLINICAL HISTORY: Sacral pain. COMPARISON IMAGIN06/22/2013 lumbar spine radiography. FINDINGS: Two views were submitted for evaluation. Sacroiliac joints appear unremarkable. No fracture, dislocation, or radiopaque foreign body is seen. Alignment appears maintained. Soft tissues are within normal limits. IMPRESSION: No significant abnormality. 06/22/2013 [facility] [place] Consultation Notes No Data Provided for This Section Discharge Summaries No Data Provided for This Section History and Physicals No Data Provided for This Section Vital Signs No Data Provided for This Section Encounters Location Location Details Encounter Type Encounter Number Reason For Visit Attending Provider ADM Date DC Date Status Source OD [id number] V76.12 - SCREEN MAMMOGRA MATTHEW MARGO 03/31/2012 Active [facility] [place] OD [id number] 625.9 - FEM GENITAL SYM MATTHEW MARGO Cancel [facility] [place] OD [id number] 789.0 - ABDOMINAL PAIN MATTHEW MARGO Cancel [facility] [place] Procedures No Data Provided for This Section [...]
[2020-02-19 12:08] LABS: BACTERIA,URINE MODERATE /HPF; EPITHELIAL CELLS,URINE FEW /LPF; WBC,URINE (MAN) >50 /HPF (0-5)
[2020-02-19 12:09] LABS: MUCUS,URINE FEW (RARE)
[2020-02-19] MEDS ORDERED: PYRIDIUM100 MG PO (12:28)
[2020-02-19] MEDS ORDERED: MACROBID 100 M100 MG PO (12:28)
[2020-02-19] MEDS ORDERED: KEFLEX500 MG PO (12:28)
== END 2020-02-19 12:59 | disposition home or self-care (01) ==
LOC: ER 09:25
DX: Z46.6 Encounter for fitting and adjustment of urinary device (principal); N39.0 Urinary tract infection, site not specified; F43.10 Post-traumatic stress disorder, unspecified; B20 Human immunodeficiency virus [HIV] disease
CPT/HCPCS: 81001; 87086; 99283

== ENCOUNTER 2020-04-06 18:24 | Emergency (ER) | payer MEDICARE, OTHER ==
[~2020-04-06] VITALS: Ht 154.9 cm; Wt 60.8 kg
[~2020-04-06 18:24] MED LIST changes: +MACROBID 100 M100 MG PO; +PYRIDIUM100 MG PO
[2020-04-06] MEDS ORDERED: KETOROLAC TROMETHAMINE 30 MG/ML VIAL ONE (18:45)
[2020-04-06] MEDS ORDERED: KETOROLAC TROMETHAMINE 60 MG/2 ML VIAL IM ONE (18:45)
[2020-04-06] MEDS ORDERED: KETOROLAC TROMETHAMINE 60 MG/2 ML VIAL ONE (18:47)
== END 2020-04-06 21:19 | disposition home or self-care (01) ==
LOC: ER 19:15
DX: M50.320 Other cervical disc degeneration, mid-cervical region, unspecified level (principal); B20 Human immunodeficiency virus [HIV] disease; F43.10 Post-traumatic stress disorder, unspecified
CPT/HCPCS: 70450; 72125; 93005; 99283; J1885

== ENCOUNTER 2020-05-10 22:44 | Emergency (ER) | payer MEDICARE, OTHER ==
[~2020-05-10] VITALS: Ht 154.9 cm; Wt 60.8 kg
--- NOTE | 2020-05-10 23:06 | Emergency Department Note ---
History of Present Illnes History of Present Illness Chief Complaint: Eye, Ear, Nose, Throat, Dental History of Present Illness This is a 50 year old female c/o spitting up blood after having permanant implants placed on . Patient also c/o right shoulder/arm pain and tenderness. EMS repo rts patient is being evaluated for arthritis. No distress noted. pt then changed her story and states she called 911 for a rapid heart rate, . Historian: Social Welfare Administrator/EMS Arrival Mode: [place] Onset (how long ago): day(s) (4) Location: mouth, right shoulder Quality: spittin up blood, right shoulder pain Radiation: Reports non-radiation Severity: moderate Onset quality: sudden Duration (how long): day(s) (4) Timing of current episode: constant Progression: unchanged Chronicity: new Context: Reports recent surgery (dental surgery last ) Relieving factors: none Exacerbating factors: movement Associated symptoms: Reports other (rapid heart rate) Past Medical/Family History Physician Review I have reviewed the patient's past medical and family history. Any updates have been documented here. Past Medical History Recent Fever: No Clinical Suspicion of Infectio: No New/Unexplained Change in Ment: No Past Medical History: UTI's, HIV, Other Mental Illness Other Medical History: HIV PTSD Past Surgical History: Other Surgery: LITHOTRIPSY, COLON BIOPSY, X3 Social History Smoking Cessation: Never Smoker Alcohol Use: None Any Illegal Drug Use: No Family History Family history of heart diseas: No Other Last Tetanus: UTD Review of Systems Review of Systems Constitutional: Reports no symptoms EENTM: Reports as per HPI Cardiovascular: Reports no symptoms Respiratory: Reports no symptoms Gastrointestinal: Reports no symptoms Genitourinary: Reports no symptoms Musculoskeletal: Reports as per HPI Integumentary: Reports no symptoms Neurological: Reports no symptoms Psychological: Reports no symptoms Endocrine: Reports no symptoms Hematological/Lymphatic: Reports no symptoms Physical Exam Related Data Allergies: Coded Allergies: hydrocodone (Verified Allergy, Severe, HIVES, 02/19/20) metronidazole (Verified Allergy, Intermediate, 02/19/20) sulfamethoxazole (Verified Allergy, Intermediate, 02/19/20) trimethoprim (Verified Allergy, Intermediate, 02/19/20) Penicillins (Verified Allergy, Unknown, 02/19/20) ibuprofen (Verified Allergy, Unknown, 05/10/20) morphine (Verified Adverse Reaction, Unknown, VOMITING, CONSTIPATION, 07/20/19) Triage Vital Signs Vital Signs Date Time Temp Pulse Resp B/P (MAP) Pulse Ox O2 Delivery O2 Flow Rate FiO2 05/10/20 22:47 98.4 82 18 121/69 97 Room Air Vital signs reviewed: Yes Physical Exam CONSTITUTIONAL Constitutional: Present well-developed, Present well-nourished; Absent distressed HENT HENT: Present normocephalic, Present atraumatic, Present oropharynx clear/moist, Present nose normal, Present other (no bleeding noted, no gum swelling noted) HENT L/R: Present left ext ear normal, Present right ext ear normal EYES Eyes: Reports PERRL, Reports conjunctivae normal NECK Neck: Present ROM normal PULMONARY Pulmonary: Present effort normal, Present breath sounds normal CARDIOVASCULAR Cardiovascular: Present regular rhythm, Present heart sounds normal, Present capillary refill normal, Present normal rate GASTROINTESTINAL Abdominal: Present soft, Present nontender, Present bowel sounds normal GENITOURINARY Genitourinary: Present exam deferred SKIN Skin: Present warm, Present dry MUSCULOSKELETAL pain with rom of right shoulder, pain with palpation of soft tissues around rotator cuff NEUROLOGICAL Neurological: Present alert, Present oriented x 3, Present no gross motor or sensory deficits PSYCHOLOGICAL Psychological: Present mood/affect normal, Present judgement normal Results Laboratory Laboratory Laboratory Tests Test 05/10/20 22:59 White Blood Count 2.32 x10e3/uL (4.8-10.8) Red Blood Count 4.07 x10e6/uL (3.6-5.1) Hemoglobin 11.7 g/dL (12.0-16.0) Hematocrit 34.9 % (34.2-44.1) Mean Corpuscular Volume 85.7 fL (81-99) Mean Corpuscular Hemoglobin 28.7 pg (28-32) Mean Corpuscular Hemoglobin Concent 33.5 g/dL (31-35) Red Cell Distribution Width 12.2 % (11.7-14.4) Platelet Count 207 x10e3/uL (140-360) Neutrophils (%) (Auto) 44.5 % (38.7-80.0) Lymphocytes (%) (Auto) 41.8 % (18.0-39.1) Monocytes (%) (Auto) 9.9 % (4.4-11.3) Eosinophils (%) (Auto) 3.0 % (0.0-6.0) Basophils (%) (Auto) 0.4 % (0.0-1.0) Neutrophils # (Auto) 1.0 (2.1-6.9) Lymphocytes # (Auto) 1.0 (1.0-3.2) Monocytes # (Auto) 0.2 (0.2-0.8) Eosinophils # (Auto) 0.1 (0.0-0.4) Basophils # (Auto) 0.0 (0.0-0.1) Absolute Immature Granulocyte (auto 0.01 x10e3/uL (0-0.1) Sodium Level 142 mmol/L (136-145) Potassium Level 3.4 mmol/L (3.5-5.1) Chloride Level 109 mmol/L (98-107) Carbon Dioxide Level 22 mmol/L (22-29) Anion Gap 14.4 mmol/L (8-16) Blood Urea Nitrogen 10 mg/dL (7-26) Creatinine 0.77 mg/dL (0.57-1.11) Estimat Glomerular Filtration Rate > 60 ML/MIN (60-) BUN/Creatinine Ratio 13 (6-25) Glucose Level 98 mg/dL (74-118) Calcium Level 8.8 mg/dL (8.4-10.2) Total Bilirubin 0.2 mg/dL (0.2-1.2) Aspartate Amino Transf (AST/SGOT) 32 IU/L (5-34) Alanine Aminotransferase (ALT/SGPT) 40 IU/L (0-55) Alkaline Phosphatase 120 IU/L (40-150) Creatine Kinase 79 IU/L (29-168) Creatine Kinase MB 1.40 ng/mL (0-5.0) Troponin I < 0.001 ng/mL (0-0.300) Total Protein 8.6 g/dL (6.5-8.1) Albumin 4.1 g/dL (3.5-5.0) Globulin 4.5 g/dL (2.3-3.5) Albumin/Globulin Ratio 0.9 (0.8-2.0) Amylase Level 48 U/L (25-125) Lipase 36 U/L (8-78) Lab results reviewed: Yes Imaging Imaging results reviewed: Yes Impressions rocedure: [id number] DX/SHOULDER RIGHT COMPLETE Exam Date: 05/10/20 Exam Time: 2134 REPORT STATUS: Signed X-ray right shoulder 3 views HISTORY: Pain. COMPARISON: None available. FINDINGS: Bones: No acute displaced fracture. Osseous alignment is within normal limits. Joints: The joint spaces are well-maintained. Soft tissues: The soft tissues appear unremarkable. IMPRESSION: No acute radiographic abnormality. Signed by: Abdullahi Torres MD on 05/10/2020 11:40 PM Dictated By: ABDULLAHI TORRES MD 39 Transcribed By: JUAN on 05/10/202339 COPY TO: PHU MADRIGAL MD~ Procedure: [id number] DX/CHEST SINGLE (PORTABLE) Exam Date: 05/10/20 Exam Time: 2134 REPORT STATUS: Signed EXAMINATION: CHEST SINGLE (PORTABLE) INDICATION: PALPITATIONS COMPARISON: None FINDINGS: TUBES and LINES: None. LUNGS: Normal lung volumes. Lungs are clear. No consolidations. PLEURA: No pleural effusion or pneumothorax. HEART AND MEDIASTINUM: The cardiomediastinal silhouette is unremarkable. BONES AND SOFT TISSUES: No acute osseous lesion. Soft tissues are unremarkable. UPPER ABDOMEN: No free air under the diaphragm. IMPRESSION: No acute thoracic radiographic abnormality. Signed by: Abdullahi Torres MD on 05/10/2020 11:39 PM Dictated By: ABDULLAHI TORRES MD 38 Transcribed By: JUAN on 05/10/202338 COPY TO: PHU MADRIGAL MD~ Procedures 12 Lead ECG Interpretation ECG Interpretation : ECG: ECG 1 Powder Loader: Interpreted by ED physician Date: May 10, 2020 Time: 22:56 Rhythm: sinus rhythm Rate: normal BPM: 89 QRS axis: normal ST segments normal: Yes T waves normal: Yes Q waves: V1 Clinical Impression: abnormal ECG Assessment & Plan Medical Decision Making MDM report bleeding from mouth s/p dental surgery, reported rapid heart rate right shoulder pain cbc, cmp, ekg, cardiac enzymes, right shoulder xray ordered to eval for anemia, electrolyte abnormality, fracture, arrhythmia, myocardial infarction Assessment & Plan Final Impression: (1) Right shoulder strain (2) Nausea (3) Palpitations Depart Disposition: HOME, SELF-CARE Last Vital Signs Date Time Temp Pulse Resp B/P (MAP) Pulse Ox O2 Delivery O2 Flow Rate FiO2 05/10/20 22:47 98.4 82 18 121/69 97 Room Air Home Meds Active Scripts Phenazopyridine Hcl (PYRIDIUM) 100 Mg Tablet, 100 MG PO TID, #9 TAB Prov:EV RECINOS, DO 02/19/20 Cephalexin Monohydrate (KEFLEX) 500 Mg Capsule, 500 MG PO Q6H, #40 TAB 0 Refills Prov:EV RECINOS, DO 02/19/20 Nitrofurantoin Monohyd/M-Cryst (MACROBID 100 MG CAPSULE) 100 Mg Capsule, 100 MG PO BIDWM, #14 CAP Prov:KERRY RECINOSISIS, DO 02/19/20 Ondansetron (ONDANSETRON ODT) 8 Mg Tab.rapdis, 4 MG PO TID PRN for NAUSEA for 3 Days, #10 Prov:YOBANI OWENS MD 09/09/18 Naproxen (NAPROSYN) 500 Mg Tablet, 1 TAB PO BID PRN for PAIN for 7 Days, #14 Prov:YOBANI OWENS MD 09/09/18 Ondansetron Hcl (ZOFRAN) 8 Mg Tablet, 8 MG PO Q8H PRN for NAUSEA AND VOMITING, #12 TBS 0 Refills Prov:LEONID QUEZADA MD 06/21/18 Levofloxacin (LEVAQUIN) 500 Mg Tablet, 750 MG PO DAILY, #7 TAB 0 Refills Prov:LEONID QUEZADA MD 06/21/18 Reported Medications [[place]] No Conflict Check 04/16/12 [Novir] No Conflict Check 04/16/12 [Truvada] No Conflict Check 04/16/12 [Trazadone] No Conflict Check 04/16/12 [Cymbalta] No Conflict Check 04/16/12 [[place]] No Conflict Check 04/16/12 PHU MADRIGAL MD May 10, 2020 23:06
[2020-05-10 23:08] LABS: BASOPHILS % 0.4 % (0.0-1.0); EOSINOPHILS # (AUTO) 0.1 (0.0-0.4); HEMATOCRIT 34.9 % (34.2-44.1); HEMOGLOBIN 11.7 g/dL (12.0-16.0); LYMPHOCYTES % 41.8 % (18.0-39.1); MEAN CORPUSCULAR HEMOGLOBIN 28.7 pg (28-32); MEAN CORPUSCULAR HGB CONC 33.5 g/dL (31-35); MEAN CORPUSCULAR VOLUME 85.7 fL (81-99); MONOCYTES # (AUTO) 0.2 (0.2-0.8); MONOCYTES % 9.9 % (4.4-11.3); NEUTROPHILS % 44.5 % (38.7-80.0); PLATELET COUNT 207 x10e3/uL (140-360); RED BLOOD COUNT 4.07 x10e6/uL (3.6-5.1); RED CELL DISTRIBUTION WIDTH 12.2 % (11.7-14.4)
[2020-05-10 23:24] LABS: AMYLASE 48 U/L (25-125); LIPASE 36 U/L (8-78)
[2020-05-10 23:26] LABS: ALANINE AMINOTRANSFERASE 40 IU/L (0-55); ALBUMIN 4.1 g/dL (3.5-5.0); ALBUMIN/GLOBULIN RATIO 0.9 (0.8-2.0); ALKALINE PHOSPHATASE 120 IU/L (40-150); ANION GAP 14.4 mmol/L (8-16); BLOOD UREA NITROGEN 10 mg/dL (7-26); BUN/CREATININE RATIO 13 (6-25); CALCIUM 8.8 mg/dL (8.4-10.2); CARBON DIOXIDE 22 mmol/L (22-29); CHLORIDE 109 mmol/L (98-107); CREATININE, SERUM 0.77 mg/dL (0.57-1.11); EST GLOMERULAR FILTRATION RATE > 60 ML/MIN (60-); GLUCOSE 98 mg/dL (74-118); POTASSIUM 3.4 mmol/L (3.5-5.1); SODIUM 142 mmol/L (136-145)
[2020-05-10 23:27] LABS: CREATINE KINASE 79 IU/L (29-168)
--- NOTE | 2020-05-10 23:43 | Diagnostic Imaging Report ---
EXAMINATION: CHEST SINGLE (PORTABLE) INDICATION: PALPITATIONS COMPARISON: None FINDINGS: TUBES and LINES: None. LUNGS: Normal lung volumes. Lungs are clear. No consolidations. PLEURA: No pleural effusion or pneumothorax. HEART AND MEDIASTINUM: The cardiomediastinal silhouette is unremarkable. BONES AND SOFT TISSUES: No acute osseous lesion. Soft tissues are unremarkable. UPPER ABDOMEN: No free air under the diaphragm. IMPRESSION: No acute thoracic radiographic abnormality. Signed by: Kurt Swift MD on 05/10/2020 11:39 PM
--- NOTE | 2020-05-10 23:43 | Diagnostic Imaging Report ---
X-ray right shoulder 3 views HISTORY: Pain. COMPARISON: None available. FINDINGS: Bones: No acute displaced fracture. Osseous alignment is within normal limits. Joints: The joint spaces are well-maintained. Soft tissues: The soft tissues appear unremarkable. IMPRESSION: No acute radiographic abnormality. Signed by: Kurt Swift MD on 05/10/2020 11:40 PM
[2020-05-10 23:56] VITALS: BP 114/69
--- OUTSIDE RECORDS SUMMARY | 2020-05-11 00:03 | XMS REPORT | Continuity of Care Document ---
Author Author [facility] t Organization [facility] Address [address] [place] [address] Phone Unavailable Care Team Providers Care Epic Manager Name Role Phone MD Wale RECIO MD PCP Kaylah MADRIGAL Attphys Unavailable KRIS TILLMAN Attphys Unavailable EV RECINOS Attphys Unavailable Wale RECIO Attphys Unavailable Rodolfo OWENS Attphys Unavailable Payers Payer Name Policy Type Policy Number Effective Date Expiration Date Abnudio kesha [facility] Medicare Complete [id number] 2019 00:00:00 [facility] Care Improvement Plus [id number] 2017 [id number] [id number] 2017 00:00:00 [facility] Problems Condition Name Condition Details Condition Category Status Onset Date Resolution Date Last Treatment Date Treating Clinician Comments Source 789.0 - ABDOMINAL PAIN 789. 0 - ABDOMINAL PAIN Active 06/12/2012 [facility] [place] Diagnosis Active 2012-06-12 00:01:00 2012-08-20 11:53:00 [facility] 625.9 - FEM GENITAL SYM 625. 9 - FEM GENITAL SYM Active 03/31/2012 [facility] [place] Diagnosis Active 2012-03-31 00:01:00 2012-05-16 15:34:[address] [facility] V[facility].12 - SCREEN MAMMOGRA V76. 12 - SCREEN MAMMOGRA Active 03/27/2012 [facility] [place] Diagnosis Active 2012-03-27 00:01:00 2012-03-31 14:55:00 [facility] Urinary tract infection Problem Active [facility] Problem with Neumann catheter Problem Active [facility] Allergies, Adverse Reactions, Alerts Allergy Name Allergy Type Status Severity Reaction(s) Onset Date Inacti ve Date Treating Clinician Comments Source Penicillin Allergy to substance Active 2020-02-19 00:00:00 [facility] Hydrocodone Allergy to substance Active Severe HIVES 2020-02-19 00:00:00 [facility] Sulfamethoxazole Allergy to substance Active Moderate 2020-01-24 8 00:00:00 [facility] Trimethoprim Allergy to substance Active Moderate 2020-02-19 00:00 :00 [facility] Metronidazole Allergy to substance Active Moderate 2020-02-19 00:0 0:00 [facility] Penicillins DA Active U 2019-07-22 00:00:00 [facility] morphine DA Active U 2019-07-22 00:00:00 [facility] hydrocodone DA Active U 2019-07-22 00:00:00 [facility] acetaminophen DA Active U 2019-07-22 00:00:00 [facility] sulfamethoxazole DA Active U 2019-07-22 00:00:00 [facility] trimethoprim DA Active U 2019-07-22 00:00:00 [facility] Morphine Propensity to adverse reactions Active VOMI TING, CONSTIPATION 2019-07-20 00:00:[address] [facility] nitrofurantoin DA Active [place] 2019-05-26 00:00:00 [facility] hydrocodone bit DA Active [place] 2019-04-13 00:00:00 [facility] Penicillins DA Active [place] 2019-04-13 00:00:00 [facility] morphine DA Active [place] 2019-04-13 00:00:00 [facility] trimethoprim DA Active [place] 2019-04-13 00:00:00 [facility] hydrocodone bit DA Active [place] 2018-04-21 00:00:00 [facility] Penicillins DA Active [place] 2018-04-21 00:00:00 [facility] morphine DA Active [place] 2018-04-21 00:00:00 [facility] trimethoprim DA Active [place] 2018-04-21 00:00:00 [facility] hydrocodone DA Active [place] 2017-12-15 00:00:00 [facility] acetaminophen DA Active [place] 2017-12-15 00:00:00 [facility] sulfamethoxazole DA Active [place] 2017-12-15 00:00:00 [facility] Penicillins DA Active [place] 2017-12-15 00:00:00 [facility] trimethoprim DA Active [place] 2017-12-15 00:00:00 [facility] hydrocodone bit DA Active [place] 2017-11-09 00:00:00 [facility] Penicillins DA Active [place] 2017-11-09 00:00:00 [facility] morphine DA Active [place] 2017-11-09 00:00:00 [facility] trimethoprim DA Active [place] 2017-11-09 00:00:00 [facility] Social History Social Habit Start Date Stop Date Quantity Comments Source Sex Assigned At 1970 00:00:00 1970 00:00:00 Female [facility] Medications Ordered Medication Name Filled Medication Name Start Date Stop Da te Current Medication? Ordering Clinician Indication Dosage Frequency Signature (SIG) Comments Components Source Cephalexin Monohydrate (Keflex) 500 Mg CAPSULE Cephale ronn Monohydrate (Keflex) 500 Mg CAPSULE 2020-02-19 12:28:00 Yes 500 Every 6 H ours [facility] Nitrofurantoin Monohyd/M-Cryst (Macrobid 100 Mg Capsul e) 100 Mg CAPSULE Nitrofurantoin Monohyd/M-Cryst (Macrobid 100 Mg Capsule) 100 Mg CAPSULE 2020-02-19 12:28:00 Yes 100 Twice Daily With M eals [facility] Phenazopyridine Hcl (Pyridium) 100 Mg TABLET Phenazopy ridine Hcl (Pyridium) 100 Mg TABLET 2020-02-19 12:28:00 Yes 100 Three Times A Day [facility] Ciprofloxacin Hcl (Cipro) 500 Mg TABLET Ciprofloxacin Hcl (C ipro) 500 Mg TABLET 2020-02-09 18:08:00 2020-02-09 00:00:00 No 500 Twice A Day [facility] Sulfamethoxazole/Trimethoprim (Bactrim Ds Tablet) 1 Ea ch TABLET Sulfamethoxazole/Trimethoprim (Bactrim Ds Tablet) 1 Each TABLET 2018-09-09 22:18:00 2018-09-09 00:00:00 No 1 Twice A Day [facility] Naproxen (Naprosyn) 500 Mg TABLET Naproxen (Naprosyn) 500 Mg TABLET 2018-09-09 21:57:00 Yes 1 Twice A Day as needed for [place] [facility] Ondansetron (Ondansetron Odt) 8 Mg TAB.RAPDIS Ondanset john (Ondansetron Odt) 8 Mg TAB.RAPDIS 2018-09-09 21:57:00 Yes 4 T hree Times A Day as needed for Nausea [facility] Levofloxacin (Levaquin) 500 Mg TABLET Levofloxacin (Levaquin ) 500 Mg TABLET 2018-06-21 22:05:00 Yes 750 Daily [facility] Ondansetron Hcl (Zofran) 8 Mg TABLET Ondansetron Hcl (Zofran ) 8 Mg TABLET 2018-06-21 22:05:00 Yes 8 Every 8 Hours as needed for Nausea And Vomiting [facility] Yes [facility] [place] Yes [facility] Novir Novir Yes [facility] Reyataz Reyataz Yes [facility] Trazadone Trazadone Yes [facility] Truvada Truvada Yes [facility] Vital Signs Vital Name Observation Time Observation Value Comments Source Weight 2020-04-06 18:27:00 134 [lb_av] [facility] BMI (Body Mass Index) 2020-04-06 18:27:00 25.3 kg/m2 [facility] Weight 2020-02-19 09:08:00 134 [lb_av] [facility] BMI (Body Mass Index) 2020-02-19 09:08:00 25.3 kg/m2 [facility] Body Temperature 2019-04-26 00:04:00 98.2 [degF] [facility] Procedures Procedure Date / Time Performed Performing Clinician [facility] e Computed tomography of brain without radiopaque contrast 2020-03 00:00:00 [facility] Computed tomography of cervical spine without contrast 2020-03-24 4 00:00:00 [facility] Computed tomography of abdomen and pelvis with contrast 2019 00:00:00 EV RECINOS [facility] Plan of Care Planned Activity Planned Date Details Comments Source Instructions Sprains [facility] Encounters Start Date/Time End Date/Time Encounter Type Admission Type Att[facility] Care Department Encounter ID Source 2020-04-06 19:15:00 2020-04-06 21:19:00 Departed Emergency Room 1 KRIS TILLMAN [facility] [id number] [facility] 2020-02-19 09:25:00 2020-02-19 12:59:00 Departed Emergency Room [facility] [id number] [facility] 2020-02-09 16:55:00 2020-02-09 19:25:00 Departed Emergency Room [facility] [id number] [facility] Geoff [facility] 2019-07-20 10:36:00 2019-07-20 15:50:00 [facility]ed [facility] [id number] [facility] 2019-04-25 22:16:00 2019-04-26 00:12:00 Departed Emergency Room 1 [facility] [id number] [facility] 2019-01-09 15:18:00 2019-01-09 15:18:00 Registered Clinic 3 KITTY CRUZ [facility] [id number] [facility]. [facility] 2018-09-09 21:28:00 2018-09-09 23:12:00 Departed Emergency Room 1 YOBANI OWENS [facility] [id number] [facility]. [facility] 2018-06-21 19:52:00 2018-06-21 23:25:00 Departed Emergency Room [facility] [id number] [facility] Results Test Description Test Time Test Comments Results Result Comments Source SHOULDER RIGHT COMPLETE 2020-05-10 23:39:00 [facility] DOB: 1970 Sex: F [place] [id number] Patient Name: PRASANNA DAMIAN MR #: [id number] : 1970 Age/Sex: 50/F Req #: [id number] [facility] Physician: Ordered by: PHU MADRIGAL MD Report #: [id number] Location: ER Room/Bed: Procedure: [id number] DX/SHOULDER RIGHT COMPLETE Exam Date: 05/10/20 Exam Time: 2134 REPORT STATUS: Signed X-ray right shoulder 3 views HISTORY: Pain. COMPARISON: None available. FINDINGS: Bones: No acute displaced fracture. Osseous alignment is within normal limits. Joints: The joint spaces are well-maintained. Soft tissues: The soft tissues appear unremarkable. IMPRESSION: No acute radiographic abnormality. Signed by: Abdullahi Swift MD on 05/10/2020 11:40 PM Dictated By: ABDULLAHI SWIFT MD 39 Transcribed By: JUAN on 05/10/202339 COPY TO: PHU MADRIGAL MD CHEST SINGLE (PORTABLE) 2020-05-10 23:38:00 [facility]ENTER[facility]: PRASANNA DAMIAN : 1970 Sex: F [facility] [address], [place] [address] Patient Name: PRASANNA DAMIAN MR #: [id number] : 1970 Age/Sex: 50/F Req #: [id number] Adm Physician: Ordered by: PHU MADRIGAL MD Report #: [id number] Location: ER Room/Bed: Procedure: [id number] DX/CHEST SINGLE (PORTABLE) Exam Date: 05/10/20 Exam Time: 2134 REPORT STATUS: Signed EXAMINATION: CHEST SINGLE (PORT ABLE) INDICATION: PALPITATIONS COMPARISON: None FINDINGS: TUBES and LINES: None. LUNGS: Normal lung volumes. Lungs are clear. No consolidations. PLEURA: No pleural effusion or pneumothorax. HEART AND MEDIASTINUM: The cardiomediastinal silhouette is unremarkable. BONES AND SOFT TISSUES: No acute osseous lesion. Soft tissues are unremarkable. UPPER ABDOMEN: No free air under the diaphragm. IMPRESSION: No acute thoracic radiographic abnormality. Signed by: Abdullahi Swift MD on 05/10/2020 11:39 PM Dictated By: ABDULLAHI SWIFT MD 38 Transcribed By: JUAN on 05/10/202338 COPY TO: PHU MADRIGAL MD CT CERVICAL SPINE WO 2020-04-06 20:32:00 [facility] 1970 Sex: F [facility] [address] [place] [address] Patient Name: PRASANNA DAMIAN MR #: [id number] : 1970 Age/Sex: 49/F Req #: [id number] Adm Physician: Ordered by: KRIS TILLMAN DO Report #: [id number] Location: ER Room/Bed: Procedure: [id number] CT/CT CERVICAL SPINE WO Exam Date: 04/06/20 Exam Time: 1911 REPORT STATUS: Signed Exams: Head and cervical spine CTs without IV contrast History: Shoulder pain radiates to neck and back of head Comparison studies: None Technique: Axial images were obtained from the brain and cervical spine. Coronal and sagittal images reconstructed from the axial data. Dose modulation, iterative reconstruction, and/or weight based adjustment of the mA/kV was utilized to reduce the radiation dose to as low as reasonably achievable. Intravenous contrast: None Findings: Head CT: Scalp: No abnormalities. Bones: No fractures, blastic or lytic lesions. Extra-axial spaces: No masses. No fluid co llections. Brain sulci: Appropriate for age. Ventricles: Normal in size and configuration. No hydrocephalus. Parenchyma: No abnormal densities. No masses, hemorrhage, acute or chronic vascular insults. Sellar/suprasellar region: No abnormalities. Craniocervical junction: The foramen magnum is patent. No Chiari one malformation. Included paranasal sinuses: Clear. Middle ear cavities and mastoids: Clear. Cervical spine CT: Fractures: None. Soft tissues: No gross abnormalities. Atlantoaxial articulation: Intact. Alignment: Mild reversal the usual cervical lordosis there is nonspecific. No subluxations. Cervicomedullary junction: No abnormalities. The foramen magnum is patent. Vertebrae: No infection or neoplasm. Degenerative changes: Mildly degenerated C6-C7 disc. Moderate left facet arthrosis at C7-T1 superimposed on mild multilevel facet arthrosis. Incidental findings: Multiple scattered bilateral cervical lymph nodes which are increased in number but are not significantly enlarged are nonspecific and may be reactive. IMPRESSION: Head CT: No acute intracranial abnormalities. Cervical spine CT: 1. No cervical spine fracture or subluxation. 2. Degenerative changes as described. 3. Reversal of the usual cervical lordotic curvature may be positional or possibly related to muscle spasm. 4. Cannot exclude ligament, spinal cord and or vascular abnormalities on the basis of this examination. Signed by: Dr. Colten Crabtree M.D. on 04/06/2020 8:44 PM Dictated By: COLTEN CRABTREE MD 43 Transcribed By: JUAN on 04/06/202043 COPY TO: KRIS TILLMAN DO CT BRAIN WO 2020-04-06 20:32:00 [facility] CENTERName: PRASANNA DAMIAN : 1970 Sex: F [place] [address] Patient Name: PRASANNA DAMIAN MR #: [id number] : 1970 Age/Sex: 49/F Req #: [id number] Adm Physician: Ordered by: KRIS TILLMAN DO Report #: [id number] Location: ER Room/Bed: Procedure: [id number] CT/CT BRAIN WO Exam Date: 04/06/20 Exam Time: 1911 REPORT STATUS: Signed Exams: Head and cervical spine CTs without IV contrast History: Shoulder pain radiates to neck and back of head Comparison studies: None Technique: Axial images were obtained from the brain and cervical spine. Coronal and sagittal images reconstructed from the axial data. Dose modulation, iterative reconstruction, and/or weight based adjustment of the mA/kV was utilized to reduce the radiation dose to as low as reasonably achievable. Intravenous contrast: None Findings: Head CT: Scalp: No abnormalities. Bones: No fractures, blastic or lytic lesions. Extra-axial spaces: No masses. No fluid collections. Brain sulci: Appropriate for age. Ventricles: Normal in size and configuration. No hydrocephalus. Parenchyma: No abnormal densities. No masses, hemorrhage, acute or chronic vascular insults. Sellar/suprasellar region: No abnormalities. Craniocervical junction: The foramen magnum is patent. No Chiari one malformation. Included paranasal sinuses: Clear. Middle ear cavities and mastoids: Clear. Cervical spine CT: Fractures: None. Soft tissues: No gross abnormalities. Atlantoaxial articulation: Intact. Alignment: Mild reversal the usual cervical lordosis there is nonspecific. No subluxations. Cervicomedullary junction: No abnormalities. The foramen magnum is patent. Vertebrae: No infection or neoplasm. Degenerative changes: Mildly degenerated C6-C7 disc. Moderate left facet arthrosis at C7-T1 superimposed on mild multilevel facet arthrosis. Incidental findings: Multiple scattered bilateral cervical lymph nodes which are increased in number but are not significantly enlarged are nonspecific and may be reactive. IMPRESSION: Head CT: No acute intracranial abnormalities. Cervical spine CT: 1. No cervical spine fracture or subluxation. 2. Degenerative changes as described. 3. Reversal of the usual cervical lordotic curvature may be positional or possibly related to muscle spasm. 4. Cannot exclude ligament, spinal cord and or vascular abnormalities on the basis of this examination. Signed by: Dr. Colten Crabtree M.D. on 04/06/2020 8:44 PM Dictated By: COLTEN CRABTREE MD 43 Transcribed By: JUAN on 04/06/202043 COPY TO: PRIMOKRIS Urine color determination 2020-02-19 09:43:00 Test Item Urine Color (test code = 5778-6) YELLOW YELLOW [facility] [id number] 09:43:00* Test Item Value Reference Range Interpretation Comments Urine Clarity (test code = 87897-2) [facility] Test strip 2020-02-19 09:43:00* Test Item Value Reference Range Interpretation Comments Urine Specific [place] (test code = 5811-5) 1.020 1.010-1.02 5 [facility] pH measurement by automated test [id number] 09:43:00* Test Item Value Reference Range Interpretation Comments Urine pH (test code = 09525-4) 7 5-7 [facility] leukocyte esterase detection by [id number] 09:43:00* Test Item Value Reference Range Interpretation Comments Urine Leukocyte Esterase (test code = 5799-2) MODERATE NEGATIVE [facility] nitrite [id number] 09:43:00* Test Item Value Reference Range Interpretation Comments Urine Nitrite (test code = 29850-9) NEGATIVE NEGATIVE [facility] protein measurement by test strip (mass/volume)2020-02-19 09:43:00* Test Item Value Reference Range Interpretation Comments Urine Protein (test code = 5804-0) NEGATIVE NEGATIVE [facility] glucose [id number] 09:43:00* Test Item Value Reference Range Interpretation Comments Urine Glucose (UA) (test code = 2349-9) NEGATIVE NEGATIVE [facility] ketones detection by automated test [id number] 09:43:00* Test Item Value Reference Range Interpretation Comments Urine Ketones (test code = 88736-4) NEGATIVE NEGATIVE [facility] urobilinogen measurement by test strip (mass/volume)2020-02-19 09:43:00* Test Item Value Reference Range Interpretation Comments Urine Urobilinogen (test code = 88895-7) 0.2 0.2-1 [facility] total bilirubin measurement (mass/volume)2020-02-19 09:43:00* Test Item Value Reference Range Interpretation Comments Urine Bilirubin (test code = 1978-6) NEGATIVE NEGATIVE [facility] Hospital[facility] erythrocytes [id number] 09:43:00* Test Item Value Reference Range Interpretation Comments Urine Blood (test code = 14775-3) TRACE NEGATIVE [facility] HospitalAutomated urine sediment leukocyte count by microscopy (number/high power field)2020-02-19 09:43:00* Test Item Value Reference Range Interpretation Comments Urine WBC (test code = 5821-4) >50 0-5 [facility] HospitalErythrocytes detection in urine sediment by light [id number] 09:43:00* Test Item Value Reference Range Interpretation Comments Urine RBC (test code = 17302-3) 6-10 0-5 [facility] HospitalBacteria detection in urine sediment by light [id number] 09:43:00* Test Item Value Reference Range Interpretation Comments Urine Bacteria (test code = 36126-4) MODERATE NONE [facility] HospitalEpithelial cells detection in urine sediment by light [id number] 09:43:00* Test Item Value Reference Range Interpretation Comments Urine Epithelial Cells (test code = 34367-0) FEW NONE [facility] HospitalMucus detection in urine sediment by light [id number] 09:43:00* Test Item Value Reference Range Interpretation Comments Urine Mucus (test code = 8247-9) FEW RARE [facility] HospitalUrine color [id number] 09:43:00* Test Item Value Reference Range Interpretation Comments Urine Color (test code = 5778-6) YELLOW YELLOW [facility] Hospital[facility] [id number] 09:43:00* Test Item Value Reference Range Interpretation Comments Urine Clarity (test code = 14683-2) CLEAR CLEAR [facility] Urine by Test strip 2020-02-19 09:43:00* Test Item Value Reference Range Interpretation Comments Urine Specific [place] (test code = 5811-5) 1.020 1.010-1.02 5 [facility] pH measurement by automated test [id number] 09:43:00* Test Item Value Reference Range Interpretation Comments Urine pH (test code = 09332-2) 7 5-7 [facility] Hospital[facility] leukocyte esterase detection by ossixcof1935-91-81 09:43:00* Test Item Value Reference Range Interpretation Comments Urine Leukocyte Esterase (test code = 5799-2) MODERATE NEGATIVE [facility] HospitalUrine nitrite [id number] 09:43:00* Test Item Value Reference Range Interpretation Comments Urine Nitrite (test code = 64440-8) NEGATIVE NEGATIVE [facility] HospitalU[facility] protein measurement by test strip (mass/volume)2020-02-19 09:43:00* Test Item Value Reference Range Interpretation Comments Urine Protein (test code = 5804-0) NEGATIVE NEGATIVE [facility] HospitalU[facility] glucose [id number] 09:43:00* Test Item Value Reference Range Interpretation Comments Urine Glucose (UA) (test code = 2349-9) NEGATIVE NEGATIVE [facility] HospitalU[facility] ketones detection by automated test [id number] 09:43:00* Test Item Value Reference Range Interpretation Comments Urine Ketones (test code = 42922-6) NEGATIVE NEGATIVE [facility] HospitalUrine urobilinogen measurement by test strip (mass/volume)2020-02-19 09:43:00* Test Item Value Reference Range Interpretation Comments Urine Urobilinogen (test code = 56666-2) 0.2 0.2-1 [facility] total bilirubin measurement (mass/volume)2020-02-19 09:43:00* Test Item Value Reference Range Interpretation Comments Urine Bilirubin (test code = 1978-6) NEGATIVE NEGATIVE [facility] HospitalU[facility] erythrocytes [id number] 09:43:00* Test Item Value Reference Range Interpretation Comments Urine Blood (test code = 43670-1) TRACE NEGATIVE [facility] HospitalAutomated urine sediment leukocyte count by microscopy (number/high power field)2020-02-19 09:43:00* Test Item Value Reference Range Interpretation Comments Urine WBC (test code = 5821-4) >50 0-5 [facility] HospitalErythrocytes detection in urine sediment by light [id number] 09:43:00* Test Item Value Reference Range Interpretation Comments Urine RBC (test code = 72483-1) 6-10 0-5 [facility] HospitalBacteria detection in urine sediment by light [id number] 09:43:00* Test Item Value Reference Range Interpretation Comments Urine Bacteria (test code = 35746-8) MODERATE NONE [facility] HospitalEpithelial cells detection in urine sediment by light [id number] 09:43:00* Test Item Value Reference Range Interpretation Comments Urine Epithelial Cells (test code = 04092-1) FEW NONE [facility] HospitalMucus detection in urine sediment by light cewcrnmxsb3371-67-31 09:43:00* Test Item Value Reference Range Interpretation Comments Urine Mucus (test code = 8247-9) FEW RARE [facility] HospitalBlood leukocytes automated count (number/volume)2020-02-09 16:50:00* Test Item Value Reference Range Interpretation Comments White Blood Count (test code = 6690-2) 6.00 4.8-10.8 [facility] HospitalBlood erythrocytes automated count (number/volume)2020-02-09 16:50:00* Test Item Value Reference Range Interpretation Comments Red Blood Count (test code = 789-8) 3.82 3.6-5.1 [facility] HospitalBlood hemoglobin measurement (moles/volume)2020-02-09 16:50:00* Test Item Value Reference Range Interpretation Comments Hemoglobin (test code = 24935-4) 11.3 12.0-16.0 [facility] HospitalAutomated blood hematocrit (volume fraction)2020-02-09 16:50:00* Test Item Value Reference Range Interpretation Comments Hematocrit (test code = 4544-3) 34.1 34.2-44.1 [facility] [facility] HospitalAutomated erythrocyte mean corpuscular drpblg3107-54-79 16:50:00* Test Item Value Reference Range Interpretation Comments Mean Corpuscular Volume (test code = 787-2) 89.3 81-99 [facility] HospitalAutomated erythrocyte mean corpuscular hemoglobin (mass per erythrocyte)2020-02-09 16:50:00* Test Item Value Reference Range Interpretation Comments Mean Corpuscular Hemoglobin (test code = 785-6) 29.6 28-32 [facility] HospitalAutomated erythrocyte mean corpuscular hemoglobin concentration measurement (mass/volume)2020-02-09 16:50:00* Test Item Value Reference Range Interpretation Comments Mean Corpuscular Hemoglobin Concent (test code = 786-4) 33.1 31-35 [facility] HospitalRDW BknTr-Gkh7590-21-18 16:50:00* Test Item Value Reference Range Interpretation Comments Red Cell Distribution Width (test code = 10108-0) 13.9 11.7 -14.4 [facility] HospitalAutomated blood platelet count (count/volume)2020-02-09 16:50:00* Test Item Value Reference Range Interpretation Comments Platelet Count (test code = 777-3) 334 140-360 [facility]Aut[facility] blood segmented neutrophil count as percentage of total hwbrpfdlgg0346-18-71 16:50:00* Test Item Value Reference Range Interpretation Comments Neutrophils (%) (Auto) (test code = 02242-5) 63.8 38.7-80.0 [facility] HospitalAutomated blood lymphocyte count as percentage ot total nvfktpxauq3423-51-32 16:50:00* Test Item Value Reference Range Interpretation Comments Lymphocytes (%) (Auto) (test code = 736-9) 24.5 18.0-39.1 [facility] HospitalAutomated blood monocyte count as percentage of total mbirhthhhf3239-26-85 16:50:00* Test Item Value Reference Range Interpretation Comments Monocytes (%) (Auto) (test code = 5905-5) 5.5 4.4-11.3 [facility] HospitalAutomated blood eosinophil count as percentage of total xfyxldfusk2652-48-56 16:50:00* Test Item Value Reference Range Interpretation Comments Eosinophils (%) (Auto) (test code = 713-8) 5.2 0.0-6.0 [facility] HospitalAutomated blood basophil count as percentage of total qimawoquok8131-66-30 16:50:00* Test Item Value Reference Range Interpretation Comments Basophils (%) (Auto) (test code = 706-2) 0.5 0.0-1.0 [facility] HospitalFluoroscopic procedure less than one hour sipaoeei7460-76-64 16:50:00* Test Item Value Reference Range Interpretation Comments IM GRANULOCYTES % (test code = IM GRANULOCYTES %) 0.5 0.0- 1.0 [facility] HospitalAutomated blood neutrophil count 2020-02-09 16:50:00* Test Item Value Reference Range Interpretation Comments Neutrophils # (Auto) (test code = 751-8) 3.8 2.1-6.9 [facility] HospitalBlood lymphocytes count (number/volume) 2020-02-09 16:50:00* Test Item Value Reference Range Interpretation Comments Lymphocytes # (Auto) (test code = 76488-4) 1.5 1.0-3.2 [facility] HospitalBlood monocytes automated count (number/volume)2020-02-09 16:50:00* Test Item Value Reference Range Interpretation Comments Monocytes # (Auto) (test code = 742-7) 0.3 0.2-0.8 [facility] HospitalAutomated blood eosinophil count 2020-02-09 16:50:00* Test Item Value Reference Range Interpretation Comments Eosinophils # (Auto) (test code = 711-2) 0.3 0.0-0.4 [facility] HospitalAutomated blood basophil count (count/volume)2020-02-09 16:50:00* Test Item Value Reference Range Interpretation Comments Basophils # (Auto) (test code = 704-7) 0.0 0.0-0.1 [facility] HospitalFluoroscopic procedure less than one hour ayjqumav8749-65-18 16:50:00* Test Item Value Reference Range Interpretation Comments Absolute Immature Granulocyte (auto (angela t code = Absolute Immature Granulocyte (auto) 0.03 0-0.1 [facility] HospitalTransitional cells detection in urine sediment by light qxprdnyipf5050-51-09 16:50:00* Test Item Value Reference Range Interpretation Comments Urine Transitional Epithelial Cells (test code = 8249-5) FEW NONE [facility]erum [facility] plasma sodium measurement (moles/volume)2020-02-09 16:50:00* Test Item Value Reference Range Interpretation Comments Sodium Level (test code = 2951-2) 138 136-145 [facility] Hospitalerum or plasma potassium measurement (moles/volume)2020-02-09 16:50:00* Test Item Value Reference Range Interpretation Comments Potassium Level (test code = 2823-3) 4.1 3.5-5.1 [facility] Hospitalerum or plasma chloride measurement (moles/volume)2020-02-09 16:50:00* Test Item Value Reference Range Interpretation Comments Chloride Level (test code = 2075-0) 103 98-107 [facility] Hospitalerum or plasma carbon dioxide, total measurement (moles/volume)2020-02-09 16:50:00* Test Item Value Reference Range Interpretation Comments Carbon Dioxide Level (test code = 2028-9) 24 22-29 [facility] Hospitalerum or plasma anion xqy2026-57-47 16:50:00* Test Item Value Reference Range Interpretation Comments Anion Gap (test code = 29123-5) 15.1 8-16 [facility] Hospitalerum or plasma urea nitrogen measurement (mass/volume)2020-02-09 16:50:00* Test Item Value Reference Range Interpretation Comments Blood Urea Nitrogen (test code = 3094-0) 20 7-26 [facility] Hospitalerum or plasma creatinine measurement (mass/volume)2020-02-09 16:50:00* Test Item Value Reference Range Interpretation Comments Creatinine (test code = 2160-0) 0.83 0.57-1.11 [facility] Hospitalerum or plasma urea nitrogen/creatinine mass wtvnj8855-62-86 16:50:00* Test Item Value Reference Range Interpretation Comments BUN/Creatinine Ratio (test code = 3097-3) 24 6-25 [facility] HospitalEstimated glomerular filtration rate (GFR) mrkjkpcewcdxr5117-86-15 16:50:00* Test Item Value Reference Range Interpretation Comments Estimat Glomerular Filtration Rate (test code = 085977106) > 60 >60 Ranges were taken from the National Kidney Disease Education Program and the [facility] Kidney Foundation literature.Reference ranges:60 or greater: Nywiqy69-51 ( for 3 consecutive months): Chronic kidney disease 15 or less: Kidney failureStephens Memorial HospitalGlucose yppdpxrtndi6607-17-24 16:50:00* Test Item Value Reference Range Interpretation Comments Glucose Level (test code = VJJ6248) 89 74-118 [facility] Hospitalerum or plasma calcium measurement (mass/volume)2020-02-09 16:50:00* Test Item Value Reference Range Interpretation Comments Calcium Level (test code = 80296-2) 9.8 8.4-10.2 [facility] Hospitalerum or plasma total bilirubin measurement (mass/volume)2020-02-09 16:50:00* Test Item Value Reference Range Interpretation Comments Total Bilirubin (test code = 1975-2) 0.2 0.2-1.2 [facility] HospitalFluoroscopic procedure less than one hour zsnihbrs2817-45-98 16:50:00* Test Item Value Reference Range Interpretation Comments Aspartate Amino Transf (AST/SGOT) (test code = Aspartate Amino Transf (AST/SGOT)) 28 5-34 [facility] Hospitalerum or plasma alanine aminotransferase measurement (enzymatic activity/volume)2020-02-09 16:50:00* Test Item Value Reference Range Interpretation Comments Alanine Aminotransferase (ALT/SGPT) (test code = 1742-6) 37 0-55 [facility] Hospitalerum or plasma protein measurement (mass/volume)2020-02-09 16:50:00* Test Item Value Reference Range Interpretation Comments Total Protein (test code = 2885-2) 8.5 6.5-8.1 [facility] Hospitalerum or plasma albumin measurement (mass/volume)2020-02-09 16:50:00* Test Item Value Reference Range Interpretation Comments Albumin (test code = 1751-7) 4.2 3.5-5.0 [facility] HospitalPlasma globulin measurement (mass/volume) 2020-02-09 16:50:00* Test Item Value Reference Range Interpretation Comments Globulin (test code = 49252-6) 4.3 2.3-3.5 [facility] Hospitalerum or plasma albumin/globulin mass ggupc6032-32-20 16:50:00* Test Item Value Reference Range Interpretation Comments Albumin/Globulin Ratio (test code = 1759-0) 1.0 0.8-2.0 [facility] Hospitalerum or plasma alkaline phosphatase measurement (enzymatic activity/volume)2020-02-09 16:50:00* Test Item Value Reference Range Interpretation Comments Alkaline Phosphatase (test code = 6768-6) 132 40-150 [facility] Hospitalerum or plasma choriogonadotropin ( test) gwgjuxkzn6617-60-78 16:50:00* Test Item Value Reference Range Interpretation Comments Human Chorionic Gonadotropin, Qual (test code = 2118-8) NEGATIVE NEGATIVE [facility] HospitalBlood leukocytes automated count (number/volume)2020-02-09 16:50:00* Test Item Value Reference Range Interpretation Comments White Blood Count (test code = 6690-2) 6.00 4.8-10.8 [facility] HospitalBlood erythrocytes automated count (number/volume)2020-02-09 16:50:00* Test Item Value Reference Range Interpretation Comments Red Blood Count (test code = 789-8) 3.82 3.6-5.1 [facility] HospitalBlood hemoglobin measurement (moles/volume)2020-02-09 16:50:00* Test Item Value Reference Range Interpretation Comments Hemoglobin (test code = 14783-8) 11.3 12.0-16.0 [facility] HospitalAutomated blood hematocrit (volume fraction)2020-02-09 16:50:00* Test Item Value Reference Range Interpretation Comments Hematocrit (test code = 4544-3) 34.1 34.2-44.1 [facility] HospitalAutomated erythrocyte mean corpuscular atddzo8970-54-06 16:50:00* Test Item Value Reference Range Interpretation Comments Mean Corpuscular Volume (test code = 787-2) 89.3 81-99 [facility] HospitalAutomated erythrocyte mean corpuscular hemoglobin (mass per erythrocyte)2020-02-09 16:50:00* Test Item Value Reference Range Interpretation Comments Mean Corpuscular Hemoglobin (test code = 785-6) 29.6 28-32 [facility] HospitalAutomated erythrocyte mean corpuscular hemoglobin concentration measurement (mass/volume)2020-02-09 16:50:00* Test Item Value Reference Range Interpretation Comments Mean Corpuscular Hemoglobin Concent (test code = 786-4) 33.1 31-35 [facility] HospitalRDW ZveAx-Kkf9721-56-18 16:50:00* Test Item Value Reference Range Interpretation Comments Red Cell Distribution Width (test code = 65730-3) 13.9 11.7 -14.4 [facility] HospitalAutomated blood platelet count (count/volume)2020-02-09 16:50:00* Test Item Value Reference Range Interpretation Comments Platelet Count (test code = 777-3) 334 140-[address] [facility] blood segmented neutrophil count as percentage of total fbpquhrygy9706-18-77 16:50:00* Test Item Value Reference Range Interpretation Comments Neutrophils (%) (Auto) (test code = 38706-8) 63.8 38.7-80.0 [facility] HospitalAutomated blood lymphocyte count as percentage ot total osxojkhpfh4540-83-97 16:50:00* Test Item Value Reference Range Interpretation Comments Lymphocytes (%) (Auto) (test code = 736-9) 24.5 18.0-39.1 [facility] HospitalAut[facility] centered blood monocyte count as percentage of total ousdlprwli7298-70-40 16:50:00* Test Item Value Reference Range Interpretation Comments Monocytes (%) (Auto) (test code = 5905-5) 5.5 4.4-11.3 [facility] HospitalAutomated blood eosinophil count as percentage of total eyxlkvxill0505-49-55 16:50:00* Test Item Value Reference Range Interpretation Comments Eosinophils (%) (Auto) (test code = 713-8) 5.2 0.0-6.0 [facility] HospitalAutomated blood basophil count as percentage of total sgzxclmehb7306-10-14 16:50:00* Test Item Value Reference Range Interpretation Comments Basophils (%) (Auto) (test code = 706-2) 0.5 0.0-1.0 [facility] HospitalFluoroscopic procedure less than one hour kmqlrsmh8062-14-00 16:50:00* Test Item Value Reference Range Interpretation Comments IM GRANULOCYTES % (test code = IM GRANULOCYTES %) 0.5 0.0- 1.0 [facility]Aut[facility] blood neutrophil count 2020-02-09 16:50:00* Test Item Value Reference Range Interpretation Comments Neutrophils # (Auto) (test code = 751-8) 3.8 2.1-6.9 [facility] HospitalBlood lymphocytes count (number/volume) 2020-02-09 16:50:00* Test Item Value Reference Range Interpretation Comments Lymphocytes # (Auto) (test code = 11111-6) 1.5 1.0-3.2 [facility] monocytes automated count (number/volume)2020-02-09 16:50:00* Test Item Value Reference Range Interpretation Comments Monocytes # (Auto) (test code = 742-7) 0.3 0.2-0.8 [facility] HospitalAutomated blood eosinophil count 2020-02-09 16:50:00* Test Item Value Reference Range Interpretation Comments Eosinophils # (Auto) (test code = 711-2) 0.3 0.0-0.4 [facility] HospitalAutomated blood basophil count (count/volume)2020-02-09 16:50:00* Test Item Value Reference Range Interpretation Comments Basophils # (Auto) (test code = 704-7) 0.0 0.0-0.1 [facility] HospitalFluoroscopic procedure less than one hour iwpthicc9268-19-00 16:50:00* Test Item Value Reference Range Interpretation Comments Absolute Immature Granulocyte (auto (angela t code = Absolute Immature Granulocyte (auto) 0.03 0-0.1 [facility] HospitalTransitional cells detection in urine sediment by light ajvyzjhwix4816-06-87 16:50:00* Test Item Value Reference Range Interpretation Comments Urine Transitional Epithelial Cells (test code = 8249-5) FEW NONE [facility] Hospitalerum or plasma sodium measurement (moles/volume)2020-02-09 16:50:00* Test Item Value Reference Range Interpretation Comments Sodium Level (test code = 2951-2) 138 136-145 [facility] Hospitalerum or plasma potassium measurement (moles/volume)2020-02-09 16:50:00* Test Item Value Reference Range Interpretation Comments Potassium Level (test code = 2823-3) 4.1 3.5-5.1 [facility] Hospitalerum or plasma chloride measurement (moles/volume)2020-02-09 16:50:00* Test Item Value Reference Range Interpretation Comments Chloride Level (test code = 2075-0) 103 98-107 [facility] Hospitalerum or plasma carbon dioxide, total measurement (moles/volume)2020-02-09 16:50:00* Test Item Value Reference Range Interpretation Comments Carbon Dioxide Level (test code = 2028-9) 24 22-29 [facility] Hospitalerum or plasma anion hoj2779-30-07 16:50:00* Test Item Value Reference Range Interpretation Comments Anion Gap (test code = 87323-0) 15.1 8-16 [facility] Hospitalerum or plasma urea nitrogen measurement (mass/volume)2020-02-09 16:50:00* Test Item Value Reference Range Interpretation Comments Blood Urea Nitrogen (test code = 3094-0) 20 7-26 [facility] Hospitalerum or plasma creatinine measurement (mass/volume)2020-02-09 16:50:00* Test Item Value Reference Range Interpretation Comments Creatinine (test code = 2160-0) 0.83 0.57-1.11 [facility] Hospitalerum or plasma urea nitrogen/creatinine mass ajnfh1621-33-09 16:50:00* Test Item Value Reference Range Interpretation Comments BUN/Creatinine Ratio (test code = 3097-3) 24 6-25 [facility] HospitalEstimated glomerular filtration rate (GFR) efruawnysigso8529-40-67 16:50:00* Test Item Value Reference Range Interpretation Comments Estimat Glomerular Filtration Rate (test code = 256247297) > 60 >60 Ranges were taken from the National Kidney Disease Education Program and the [facility] literature.Reference ranges:60 or greater: Gsewhy24-84 ( for 3 consecutive months): Chronic kidney disease 15 or less: Kidney failureStephens Memorial HospitalGlucose vbtzvogbvvt5733-63-44 16:50:00* Test Item Value Reference Range Interpretation Comments Glucose Level (test code = RDX2315) 89 74-118 [facility] Hospitalerum or plasma calcium measurement (mass/volume)2020-02-09 16:50:00* Test Item Value Reference Range Interpretation Comments Calcium Level (test code = 66304-2) 9.8 8.4-10.2 [facility] Hospitalerum or plasma total bilirubin measurement (mass/volume)2020-02-09 16:50:00* Test Item Value Reference Range Interpretation Comments Total Bilirubin (test code = 1975-2) 0.2 0.2-1.2 [facility] HospitalFluoroscopic procedure less than one hour tvlfkbzo8145-58-87 16:50:00* Test Item Value Reference Range Interpretation Comments Aspartate Amino Transf (AST/SGOT) (test code = Aspartate Amino Transf (AST/SGOT)) 28 5-34 [facility] Hospitalerum or plasma alanine aminotransferase measurement (enzymatic activity/volume)2020-02-09 16:50:00* Test Item Value Reference Range Interpretation Comments Alanine Aminotransferase (ALT/SGPT) (test code = 1742-6) 37 0-55 [facility] Hospitalerum or plasma protein measurement (mass/volume)2020-02-09 16:50:00* Test Item Value Reference Range Interpretation Comments Total Protein (test code = 2885-2) 8.5 6.5-8.1 [facility] Hospitalerum or plasma albumin measurement (mass/volume)2020-02-09 16:50:00* Test Item Value Reference Range Interpretation Comments Albumin (test code = 1751-7) 4.2 3.5-5.0 [facility] HospitalPlasma globulin measurement (mass/volume) 2020-02-09 16:50:00* Test Item Value Reference Range Interpretation Comments Globulin (test code = 91278-6) 4.3 2.3-3.5 [facility] Hospitalerum or plasma albumin/globulin mass fxhpp5116-66-39 16:50:00* Test Item Value Reference Range Interpretation Comments Albumin/Globulin Ratio (test code = 1759-0) 1.0 0.8-2.0 [facility] Hospitalerum or plasma alkaline phosphatase measurement (enzymatic activity/volume)2020-02-09 16:50:00* Test Item Value Reference Range Interpretation Comments Alkaline Phosphatase (test code = 6768-6) 132 40-150 [facility] Hospitalerum or plasma choriogonadotropin ( test) hyxncoedq7469-93-50 16:50:00* Test Item Value Reference Range Interpretation Comments Human Chorionic Gonadotropin, Qual (test code = 2118-8) NEGATIVE NEGATIVE [facility] HospitalBacterial urine ckifojw5005-73-89 16:40:00* Test Item Value Reference Range Interpretation Comments Urine Culture (test code = 630-4) ENTEROCOCCUS FAECALIS [facility] HospitalBacterial urine pmrmmiq6524-86-13 16:40:00* Test Item Value Reference Range Interpretation Comments Urine Culture (test code = 630-4) ENTEROCOCCUS FAECALIS [facility] HospitalTREPTOCOCCUS PCR PYZMOW0542-15-33 17:08:00* Test Item Value Reference Range Interpretation Comments STREPTOCOCCUS DYSGALACTIAE (test code = STREPGC) NEGATIVE FOR G/C N EGATIVE STREPA MOLECULAR (test code = STREPAMOL) NEGATIVE FOR GRP A NEGATIV E - CT ABD PELVIS W/CORG7278-64-53 16:20:00 Name: PRASANNA DAMIAN [facility] : 1970 Age/S: 49 / F [address] Unit #: [id number] Loc: [place] [address] Phys: Brandie Sher [employer] CORRESPONDENT Acct: [id number] Dis Date: Status: REG ER PHONE #: [phone] Exam Date: 07/22/2019 1551 FAX #: [phone] Reason: diffuse abdominal pain EXAMS: CPT CODE: [id number] CT ABD PELVIS W/CONT 22527 EXAM: CT of the abdomen and pelvis [...] fatty infiltration of the liver. Location code: [facility] at 1620 Reported and signed by: Anthony Rice M.D. CC: Brandie Sher NP Technologist:Brina Nguyen RT(R); CRISTO Conroy CTDI: DLP: Trnscb Date/Time: 07/22/2019 (1620) [email or web address] Orig Print D/T: S: 07/22/2019 (3624) PAGE 1 Signed Report BASIC METABOLIC [id number] 15:17:00* Test Item Value Reference Range Interpretation [...] CA) 9.3 mg/dL 8.5-10.1 N HEPATIC FUNCTION [id number] 15:17:00* Test Item Value Reference Range Interpretation [...] reference range due to change in reagent. EXBQVR9549-57-50 15:17:00* Test Item Value Reference Range Interpretation Comments LIPASE (test code = LIP) 191 U/L 73.0-393.0 N HCG SERUM [id number] 15:17:00* Test Item Value Reference Range Interpretation Comments HCG SERUM QUAL (test code = HCGQL) NEGATIVE NEGATIVE This HCGQL test is NOT applicable for MALE patients.Check with nurse about probable order error.If Tumor Marker Test needed, nurse should order test "HCGTU"(Test #550.57972) [id number]-[id number] 15:17:00* Test Item Value Reference Range Interpretation Comments TROPONIN-I (test code = TROPI) <0.015 ng/mL 0-0.045 N BASIC METABOLIC [id number] 14:55:00* Test Item Value Reference Range Interpretation [...] code = CA) mg/dL 8.5-10.1 HEPATIC FUNCTION [id number] 14:55:00* Test Item Value Reference Range Interpretation [...] TOTAL (test code = ALKP) IUnit/L 45-117 [id number] 14:55:00* Test Item Value Reference Range Interpretation Comments LIPASE (test code = LIP) U/L 73.0-393.0 HCG SERUM [id number] 14:55:00* Test Item Value Reference Range Interpretation Comments HCG SERUM QUAL (test code = HCGQL) NEGATIVE NEGATIVE This HCGQL test is NOT applicable for MALE patients.Check with nurse about probable order error.If Tumor Marker Test needed, nurse should order test "HCGTU"(Test #550.94930) [id number] 14:55:00* Test Item Value Reference Range Interpretation Comments TROPONIN-I (test code = TROPI) ng/mL 0-0.045 BASIC METABOLIC [id number] 14:55:00* Test Item Value Reference Range Interpretation [...] code = CA) mg/dL 8.5-10.1 HEPATIC FUNCTION [id number] 14:55:00* Test Item Value Reference Range Interpretation [...] TOTAL (test code = ALKP) IUnit/L 45-117 [id number] 14:55:00* Test Item Value Reference Range Interpretation Comments LIPASE (test code = LIP) U/L 73.0-393.0 HCG SERUM [id number] 14:55:00* Test Item Value Reference Range Interpretation Comments HCG SERUM QUAL (test code = HCGQL) NEGATIVE NEGATIVE This HCGQL test is NOT applicable for MALE patients.Check with nurse about probable order error.If Tumor Marker Test needed, nurse should order test "HCGTU"(Test #550.32382) [id number] 14:55:00* Test Item Value Reference Range Interpretation Comments TROPONIN-I (test code = TROPI) ng/mL 0-0.045 MONO [id number] 14:53:00* Test Item Value Reference Range Interpretation Comments MONO SCREEN (test code = MONO) POSITIVE NEGATIVE A URINALYSIS [id number] 14:52:00* Test Item Value Reference Range Interpretation [...] per HPF NONE Urine Source? Clean CatchURINALYSIS [id number] 14:51:00* Test Item Value Reference Range Interpretation [...] HPF NONE Urine Source? Clean CatchCBC W/O [id number] 14:49:00* Test Item Value Reference Range Interpretation [...] fL 6.7-11.0 N - XR CHEST 1 [id number] 12:48:00 FAX: Brandie Sher NP [place]: St: PRE Name: PRASANNA KAM [facility] : [birth year] Age/S: 49/F [address] [facility] Unit #: [id number] Loc: [place] [address] Phys: Brandie Sher NP Acct: [id number] Dis Date: Status: PRE ER PHONE #: [phone] Exam Date: 07/22/2019 1243 FAX #: [phone] Reason: Abdominal Pain EXAMS: CPT CODE: [id number] XR CHEST 1 V 60657 REASON FOR EXAM: Abdominal Pain Exam Order Date: 07/22/2019 12:31 PM Ordering M .D.: Brandie Sher NP PROCEDURE: - XR CHEST [...] y. IMPRESSION: No acute cardiopulmonary process. Location: [facility] at 1248 Reported and signed by: Gilbert Orozco MD CC: Brandie Sher NP Technologist: RT OLEKSANDR(Rodolfo) Trnscdonya Moreira ate/Time/By: 07/22/2019 (1908) : By: [email or web address] Orig Print D/T: S: 06/25 (3827) PAGE [address] ABDOMEN/PELVIS [id number] 16:11:00 [address] [place], [place] [address] Patient Name: PRASANNA DAMIAN MR #: [id number] : 1970 Age/Sex: 49/F Req #: [id number] Adm Physician: Ordered by: EV RECINOS DO Report #: [id number] Location: ER Room/Bed: Procedure: 17 CT/CT ABDOMEN/PELVIS W Exam Date: Exam [...] nically Signed By: EMMY ROSENBAUM MD on 07/20/191614 Transcribed By: JUAN on 1614 COPY TO: EV RECINOS DO Urine [id number] 14:23:00* Test Item Value Reference Range Interpretation Comments Urine WBC (test code = 5821-4) 0-5 0-5 [facility] HospitalU[facility] [id number] 14:23:00* Test Item Value Reference Range Interpretation Comments Urine RBC (test code = 32763-4) NONE 0-5 [facility] HospitalUrine [id number] 14:23:00* Test Item Value Reference Range Interpretation Comments Urine Bacteria (test code = 50953-9) NONE NONE [facility] HospitalUrine Epithelial [id number] 14:23:00 * Test Item Value Reference Range Interpretation Comments Urine Epithelial Cells (test code = 05070-2) RARE NONE [facility] HospitalUrine [id number] 14:05:00* Test Item Value Reference Range Interpretation Comments Urine Color (test code = 5778-6) YELLOW YELLOW [facility] HospitalUrine [id number] 14:05:00* Test Item Value Reference Range Interpretation Comments Urine Clarity (test code = 73557-0) CLEAR CLEAR [facility] HospitalU[facility] Specific Skoalby6777-34-44 14:05:00 * Test Item Value Reference Range Interpretation Comments Urine Specific [place] (test code = 5811-5) 1.010 1.010-1.02 5 [facility] HospitalUrine tT8680-14-04 14:05:00* Test Item Value Reference Range Interpretation Comments Urine pH (test code = 63840-5) 6 5-7 [facility] Leukocyte Fuyossib3343-80-82 14:05:00* Test Item Value Reference Range Interpretation Comments Urine Leukocyte Esterase (test code = 5799-2) NEGATIVE NEGATIVE [facility] HospitalUrine Orljxyp1941-33-33 14:05:00* Test Item Value Reference Range Interpretation Comments Urine Nitrite (test code = 33169-7) NEGATIVE NEGATIVE [facility] Nxgnphl6955-37-78 14:05:00* Test Item Value Reference Range Interpretation Comments Urine Protein (test code = 5804-0) NEGATIVE NEGATIVE [facility] HospitalUrine Glucose (UA)2019-07-20 14:05:00* Test Item Value Reference Range Interpretation Comments Urine Glucose (UA) (test code = 2349-9) NEGATIVE NEGATIVE [facility] HospitalUrine Eberiem3635-13-75 14:05:00* Test Item Value Reference Range Interpretation Comments Urine Ketones (test code = 31355-2) NEGATIVE NEGATIVE [facility] HospitalUrine Rqsstblmwrmb2396-25-79 14:05:00* Test Item Value Reference Range Interpretation Comments Urine Urobilinogen (test code = 50342-2) 0.2 0.2-1 [facility] HospitalUrine Esucsvpnk9941-01-26 14:05:00* Test Item Value Reference Range Interpretation Comments Urine Bilirubin (test code = 1978-6) NEGATIVE NEGATIVE [facility] HospitalU[facility] Zaygl8638-87-41 14:05:00* Test Item Value Reference Range Interpretation Comments Urine Blood (test code = 63040-5) NEGATIVE NEGATIVE [facility] HospitalU[facility] Qyaf7838-84-73 14:05:00* Test Item Value Reference Range Interpretation Comments Urine Test (test code = 2106-3) NEGATIVE NEGATIVE [facility] HospitalCreatine Kinase OA7583-00-16 13:55:00* Test Item Value Reference Range Interpretation Comments Creatine Kinase MB (test code = 77718-3) 0.40 0-5.0 [facility] HospitalTroponin W1427-90-59 13:55:00* Test Item Value Reference Range Interpretation Comments Troponin I (test code = YAN0306) < 0.001 0-0.300 [facility] Ecsku5466-66-24 13:22:00* Test Item Value Reference Range Interpretation Comments Sodium Level (test code = 2951-2) 136 136-145 [facility] HospitalPotassium Masvy2904-34-95 13:22:00* Test Item Value Reference Range Interpretation Comments Potassium Level (test code = 2823-3) 3.8 3.5-5.1 [facility] HospitalChloride Ieyjj3469-64-36 13:22:00* Test Item Value Reference Range Interpretation Comments Chloride Level (test code = 2075-0) 100 98-107 [facility] HospitalCarbon Dioxide Qvuhl7432-19-53 13:22:00* Test Item Value Reference Range Interpretation Comments Carbon Dioxide Level (test code = 2028-9) 27 22-29 [facility] HospitalAnion Fam2493-06-86 13:22:00* Test Item Value Reference Range Interpretation Comments Anion Gap (test code = 70062-5) 12.8 8-16 [facility] HospitalBlood Urea Hthjhijt0392-25-14 13:22:00* Test Item Value Reference Range Interpretation Comments Blood Urea Nitrogen (test code = 3094-0) 7 7-26 [facility] HospitalCreatinine2020-01-27 13:22:00* Test Item Value Reference Range Interpretation Comments Creatinine (test code = 2160-0) 0.70 0.57-1.11 [facility] HospitalBUN/Creatinine Bvypr6859-48-83 13:22:00* Test Item Value Reference Range Interpretation Comments BUN/Creatinine Ratio (test code = 3097-3) 10 6-25 [facility] HospitalEstimat Glomerular Filtration Rate 2019-07-20 13:22:00* Test Item Value Reference Range Interpretation Comments Estimat Glomerular Filtration Rate (test code = 896592786) > 60 >60 Ranges were taken from the National Kidney Disease Education Program and the [facility] literature.Reference ranges:60 or greater: Wtaspm84-60 ( for 3 consecutive months): Chronic kidney disease 15 or less: Kidney failureStephens Memorial HospitalGlucose Ladrw6428-89-62 13:22:00* Test Item Value Reference Range Interpretation Comments Glucose Level (test code = MNX1061) 85 74-118 [facility] HospitalCalcium Qraxp0630-44-23 13:22:00* Test Item Value Reference Range Interpretation Comments Calcium Level (test code = 02604-5) 9.3 8.4-10.2 [facility] HospitalTotal Zjpumexku3236-26-50 13:22:00* Test Item Value Reference Range Interpretation Comments Total Bilirubin (test code = 1975-2) 0.5 0.2-1.2 [facility] HospitalAspartate Amino Transf (AST/SGOT) 2019-07-20 13:22:00* Test Item Value Reference Range Interpretation Comments Aspartate Amino Transf (AST/SGOT) (test code = Aspartate Amino Transf (AST/SGOT)) 117 5-34 H [facility] HospitalAlanine Aminotransferase (ALT/SGPT) 2019-07-20 13:22:00* Test Item Value Reference Range Interpretation Comments Alanine Aminotransferase (ALT/SGPT) (test code = 1742-6) 152 0-55 H [facility] HospitalTotal Luwtpsn2361-61-71 13:22:00* Test Item Value Reference Range Interpretation Comments Total Protein (test code = 2885-2) 8.0 6.5-8.1 [facility] HospitalAlbumin2020-01-27 13:22:00* Test Item Value Reference Range Interpretation Comments Albumin (test code = 1751-7) 4.0 3.5-5.0 [facility] HospitalGlobulin2020-01-27 13:22:00* Test Item Value Reference Range Interpretation Comments Globulin (test code = 06935-2) 4.0 2.3-3.5 H [facility] HospitalAlbumin/Globulin Ostyo3257-52-23 13:22:00 * Test Item Value Reference Range Interpretation Comments Albumin/Globulin Ratio (test code = 1759-0) 1.0 0.8-2.0 [facility] HospitalAlkaline Otiemsqxjzn5282-99-43 13:22:00* Test Item Value Reference Range Interpretation Comments Alkaline Phosphatase (test code = 6768-6) 133 40-150 [facility] HospitalCreatine Sanvxn9635-32-89 13:22:00* Test Item Value Reference Range Interpretation Comments Creatine Kinase (test code = 2157-6) 37 29-168 [facility] HospitalLipase2020-01-27 13:22:00* Test Item Value Reference Range Interpretation Comments Lipase (test code = 3040-3) 26 8-78 [facility] HospitalInfluenza Virus Types A,B Antigen 2019-07-20 13:03:00* Test Item Value Reference Range Interpretation Comments Influenza Virus Types A,B Antigen (test code = 49848-7) NEGATIVE NEGATIVE [facility] HospitalWhite Blood Zhasa3832-60-18 12:59:00* Test Item Value Reference Range Interpretation Comments White Blood Count (test code = 6690-2) 3.09 4.8-10.8 L [facility] HospitalRed Blood Xxjgn5363-48-76 12:59:00* Test Item Value Reference Range Interpretation Comments Red Blood Count (test code = 789-8) 4.17 3.6-5.1 [facility] HospitalHemoglobin2020-01-27 12:59:00* Test Item Value Reference Range Interpretation Comments Hemoglobin (test code = 61059-8) 11.8 12.0-16.0 L [facility] HospitalHematocrit2020-01-27 12:59:00* Test Item Value Reference Range Interpretation Comments Hematocrit (test code = 4544-3) 35.9 34.2-44.1 [facility] HospitalMean Corpuscular Lginst3849-30-77 12:59:00* Test Item Value Reference Range Interpretation Comments Mean Corpuscular Volume (test code = 787-2) 86.1 81-99 [facility] HospitalMean Corpuscular Gbupllerhi2258-74-30 12:59:00* Test Item Value Reference Range Interpretation Comments Mean Corpuscular Hemoglobin (test code = 785-6) 28.3 28-32 [facility] HospitalMean Corpuscular Hemoglobin Concent 2019-07-20 12:59:00* Test Item Value Reference Range Interpretation Comments Mean Corpuscular Hemoglobin Concent (test code = 786-4) 32.9 31-35 [facility] HospitalRed Cell Distribution Hlsnw5572-24-53 12:59:00* Test Item Value Reference Range Interpretation Comments Red Cell Distribution Width (test code = 89224-8) 12.5 11.7 -14.4 [facility] HospitalPlatelet Tcxfd8998-84-38 12:59:00* Test Item Value Reference Range Interpretation Comments Platelet Count (test code = 777-3) 173 140-360 [facility] HospitalNeutrophils (%) (Auto)2019-07-20 12:59:00 * Test Item Value Reference Range Interpretation Comments Neutrophils (%) (Auto) (test code = 71391-1) 70.3 38.7-80.0 [facility] HospitalLymphocytes (%) (Auto)2019-07-20 12:59:00 * Test Item Value Reference Range Interpretation Comments Lymphocytes (%) (Auto) (test code = 736-9) 14.9 18.0-39.1 L [facility] HospitalMonocytes (%) (Auto)2019-07-20 12:59:00* Test Item Value Reference Range Interpretation Comments Monocytes (%) (Auto) (test code = 5905-5) 10.0 4.4-11.3 [facility] HospitalEosinophils (%) (Auto)2019-07-20 12:59:00 * Test Item Value Reference Range Interpretation Comments Eosinophils (%) (Auto) (test code = 713-8) 4.2 0.0-6.0 [facility] HospitalBasophils (%) (Auto)2019-07-20 12:59:00* Test Item Value Reference Range Interpretation Comments Basophils (%) (Auto) (test code = 706-2) 0.3 0.0-1.0 [facility] HospitalIM GRANULOCYTES %2019-07-20 12:59:00* Test Item Value Reference Range Interpretation Comments IM GRANULOCYTES % (test code = IM GRANULOCYTES %) 0.3 0.0- 1.0 [facility] HospitalNeutrophils # (Auto)2019-07-20 12:59:00* Test Item Value Reference Range Interpretation Comments Neutrophils # (Auto) (test code = 751-8) 2.2 2.1-6.9 [facility] HospitalLymphocytes # (Auto)2019-07-20 12:59:00* Test Item Value Reference Range Interpretation Comments Lymphocytes # (Auto) (test code = 60288-0) 0.5 1.0-3.2 L [facility] HospitalMonocytes # (Auto)2019-07-20 12:59:00* Test Item Value Reference Range Interpretation Comments Monocytes # (Auto) (test code = 742-7) 0.3 0.2-0.8 [facility] HospitalEosinophils # (Auto)2019-07-20 12:59:00* Test Item Value Reference Range Interpretation Comments Eosinophils # (Auto) (test code = 711-2) 0.1 0.0-0.4 [facility] HospitalBasophils # (Auto)2019-07-20 12:59:00* Test Item Value Reference Range Interpretation Comments Basophils # (Auto) (test code = 704-7) 0.0 0.0-0.1 [facility] HospitalAbsolute Immature Granulocyte (auto 2019-07-20 12:59:00* Test Item Value Reference Range Interpretation Comments Absolute Immature Granulocyte (auto (angela t code = Absolute Immature Granulocyte (auto) 0.01 0-0.1 [facility] HospitalUrine human chorionic gonadotropin (hCG) jfnksqkcq7617-11-26 12:15:00* Test Item Value Reference Range Interpretation Comments Urine Test (test code = 2106-3) NEGATIVE NEGATIVE [facility] HospitalUrine human chorionic gonadotropin (hCG) xbommmltb3100-23-75 12:15:00* Test Item Value Reference Range Interpretation Comments Urine Test (test code = 2106-3) NEGATIVE NEGATIVE [facility] Hospitalerum or plasma creatine kinase measurement (enzymatic activity/volume)2019-07-20 11:36:00* Test Item Value Reference Range Interpretation Comments Creatine Kinase (test code = 2157-6) 37 29-168 [facility] Hospitalerum or plasma creatine kinase MB measurement (mass/volume)2019-07-20 11:36:00* Test Item Value Reference Range Interpretation Comments Creatine Kinase MB (test code = 76409-7) 0.40 0-5.0 [facility] HospitalTroponin I measurement by highly sensitive enzyme tazvwqslvdh9445-71-44 11:36:00* Test Item Value Reference Range Interpretation Comments Troponin I (test code = 92635-4) < 0.001 0-0.300 [facility] Hospitalerum or plasma lipase measurement (enzymatic activity/volume)2019-07-20 11:36:00* Test Item Value Reference Range Interpretation Comments Lipase (test code = 3040-3) [facility]er[facility] or plasma creatine kinase measurement (enzymatic activity/volume)2019-07-20 11:36:00* Test Item Value Reference Range Interpretation Comments Creatine Kinase (test code = 2157-6) 37 29-168 [facility] Hospitalerum or plasma creatine kinase MB measurement (mass/volume)2019-07-20 11:36:00* Test Item Value Reference Range Interpretation Comments Creatine Kinase MB (test code = 52733-7) 0.40 0-5.0 [facility] HospitalTroponin I measurement by highly sensitive enzyme fcygrdtvchg0170-38-32 11:36:00* Test Item Value Reference Range Interpretation Comments Troponin I (test code = 65688-6) < 0.001 0-0.300 [facility] Hospitalerum or plasma lipase measurement (enzymatic activity/volume)2019-07-20 11:36:00* Test Item Value Reference Range Interpretation Comments Lipase (test code = 3040-3) [facility] HospitalInfluenza virus A and B antigen identification by ulhhftrnuiizeuovsn9908-83-70 10:53:00* Test Item Value Reference Range Interpretation Comments Influenza Virus Types A,B Antigen (test code = 31946-6) NEGATIVE NEGATIVE [facility] HospitalInfluenza virus A and B antigen identification by wcarfssqccfgkierlw5626-74-49 10:53:00* Test Item Value Reference Range Interpretation Comments Influenza Virus Types A,B Antigen (test code = 45089-1) NEGATIVE NEGATIVE [facility] HospitalB-TYPE NATRIURETIC JBUBSVL6841-33-07 17:17:00* Test Item Value Reference Range Interpretation Comments B-TYPE NATRIURETIC PEPTIDE (test code = BNP) 86.25 pgram/mL 0-100 N BASIC METABOLIC WNBMG3614-19-88 17:09:00* Test Item Value Reference Range Interpretation [...] CA) 9.4 mg/dL 8.5-10.1 N HCG SERUM EWFV8317-66-54 17:09:00* Test Item Value Reference Range Interpretation Comments HCG SERUM QUAL (test code = HCGQL) NEGATIVE NEGATIVE This HCGQL test is NOT applicable for MALE patients.Check with nurse about probable order error.If Tumor Marker Test needed, nurse should order test "HCGTU"(Test #550.37150) BRJRWFLS-I6847-51-04 17:09:00* Test Item Value Reference Range Interpretation Comments TROPONIN-I (test code = TROPI) <0.015 ng/mL 0-0.045 N HEPATIC FUNCTION JKFKF7185-89-03 17:05:00* Test Item Value Reference Range Interpretation [...] reference range due to change in reagent. PAQOWQ0612-78-12 17:05:00* Test Item Value Reference Range Interpretation Comments LIPASE (test code = LIP) 79 U/L 73.0-393.0 N F-CHISW3941-59VHZYL9849-66-85 17:00:00* Test Item Value Reference Range Interpretation [...] skin infections -Liver cirrhosis - BASIC METABOLIC JQQUN4651-62-85 16:57:00* Test Item Value Reference Range Interpretation [...] code = CA) mg/dL 8.5-10.1 HCG SERUM SNTQ0027-68-99 16:57:00* Test Item Value Reference Range Interpretation Comments HCG SERUM QUAL (test code = HCGQL) NEGATIVE NEGATIVE This HCGQL test is NOT applicable for MALE patients.Check with nurse about probable order error.If Tumor Marker Test needed, nurse should order test "HCGTU"(Test #550.50396) JGQEZFDN-F2877-88-04 16:57:00* Test Item Value Reference Range Interpretation Comments TROPONIN-I (test code = TROPI) ng/mL 0-0.045 BASIC METABOLIC SDPMA2437-45-92 16:57:00* Test Item Value Reference Range Interpretation [...] code = CA) mg/dL 8.5-10.1 HCG SERUM UDRR5357-51-15 16:57:00* Test Item Value Reference Range Interpretation Comments HCG SERUM QUAL (test code = HCGQL) NEGATIVE NEGATIVE This HCGQL test is NOT applicable for MALE patients.Check with nurse about probable order error.If Tumor Marker Test needed, nurse should order test "HCGTU"(Test #550.79816) FWBOSTOF-W9086-25-04 16:57:00* Test Item Value Reference Range Interpretation Comments TROPONIN-I (test code = TROPI) ng/mL 0-0.045 CBC W/O [id number] 16:49:00* Test Item Value Reference Range Interpretation [...] MPV) 9.7 fL 6.7-11.0 N CBC W/O NPEE7943-79-49 16:48:00* Test Item Value Reference Range Interpretation [...] MPV) fL 6.7-11.0 - XR CHEST 1 [id number] 16:32:00 FAX: Aftab Jacobo MD [phone] [place]: St: DEP Name: PRASANNA KAM [facility] : [birth year] Age/S: 49/F [address] [facility] Unit #: [id number] Loc: [place] [address] Phys: Aftab Jacobo MD Acct: [id number] Dis Date: Status: [facility] [place] PHONE #: [phone] Exam Date: 05/27/2019 1557 FAX #: [phone] Reason: Shortness of Breath EXAMS: CPT CODE: [id number] XR CHEST 1 V 48484 HISTORY: Shortness of breath. COMPARISON: None available. Location: [facility]. No acute infiltrates, effusion or congestion is noted. The cardiac and mediastinal silhouette are within normal limits. IMPRESSI ON: No acute infiltrates, effusion or congestion. at 8512 Reported and signed by: Hero Lay M.D. CC: Aftab Jacobo MD Technologist: Georgina Arrieta) Trnscrd Date/Time/By: 05/27/2019 (8825) : By: [email or web address] Orig Print D/T: S: 05/27/2019 (3469) PAGE 1 Signed Report - XR CHEST 1 [id number] 16:32:00 FAX: Aftab Jacobo MD [phone] [place]: St: REG Name: PRASANNA KAM [facility] : [birth year] Age/S: 49/F [address] [facility] Unit #: [id number] Loc: [place] [address] Phys: Aftab Jacobo MD Acct: [id number] Dis Date: Status: REG ER PHONE #: [phone] Exam Date: 05/27/2019 1557 FAX #: [phone] Reason: Shortness of Breath EXAMS: CPT CODE: [id number] XR CHEST 1 V 04708 HISTORY: Shortness of breath. COMPARISON: None available. Location: [facility]. No acute infiltrates, effusion or congestion is noted. The cardiac and mediastinal silhouette are within normal limits. IMPRESSI ON: No acute infiltrates, effusion or congestion. at 1632 Reported and signed by: Hero Lay M.D. CC: Aftab Jacobo MD Technologist: Georgina Milton(Rodolfo) Trnscrd Date/Time/By: 05/27/2019 (1632) : By: [email or web address] Orig Print D/T: S: 05/27/2019 (2051) PAGE 1 Signed Report URINALYSIS [id number] 16:31:00* Test Item Value Reference Range Interpretation [...] 1.001-1.035 UA BLOOD DIPSTICK (test code = MDITRIY) Negative mg/dL NEGATIVE UA PH DIPSTICK (test [...] #/HPF NONE A Urine Source? Clean CatchURINALYSIS FJLRMRAJ5442-94-57 16:25:00* Test Item Value Reference Range Interpretation [...] per HPF NONE Urine Source? Clean CatchURINALYSIS YGVFIPNJ3535-59-66 01:12:00* Test Item Value Reference Range Interpretation [...] HPF NONE A Urine Source? Clean CatchURINALYSIS YINYBUUT4504-23-17 00:54:00* Test Item Value Reference Range Interpretation [...] Source? Clean Catch- CT ABD PELVIS W/O [id number] 00:21:00 Name: PRASANNA DAMIAN [facility] : 1970 Age/S: 49 / F [address] [facility] Unit #: [id number] Loc: [place] [address] Phys: Maame Sher [employer]EIGN CORRESPONDENT Acct: [id number] Di s Date: Status: REG ER PHONE #: Exam Date: 05/27/2019 0010 FAX #: Reason: Right flank pain, uti, and nausea and vomiting EXAMS: CPT CODE: [id number] CT ABD PELVIS W/O CONT 82019 EXAM: - CT ABD PELVIS W/O CONT [...] Signed Report (CONTINUED) Name : PRASANNA DAMIAN [facility] : [birth year] Age/S: 49 / F [address] [facility] Unit #: [id number] Loc: [place] [address] Phys: Brandie Sher FOREIGN CORRESPONDENT Acct: [id number] Dis Date: Status: REG ER PHONE #: Exam Date: 05/27/2019 0010 FAX #: [phone] Reason: Right flank pain, uti, and nausea and vomiting EXAMS: CPT CODE: [id number] CT ABD PELVIS W/O CONT 47446 <Continued> Bones/Soft Tissues: 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 There is no acute osseous abnormality. No ventral hernias. Peritoneum/Other: No extraluminal air. No extraluminal fluid. IMPRESSION: 1. No acute abnormality. 2. Colonic diverticulosis is present without CT evidence of diverticulitis. at 0021 Reported and signed by: Marcelo Denny M.D. CC: Brandie Sher NP Technologist:ABDULLAHI MADDOX CTDI: DLP: Trnscb Date/Time: 05/27/2019 (0021) t.SAMUELR.[email or web address] Orig Print D/T: S: 05/27/2019 (0025) PAGE 2 Signed Report BASIC METABOLIC [id number] 00:11:00* Test Item Value Reference Range Interpretation [...] CA) 8.9 mg/dL 8.5-10.1 N HEPATIC FUNCTION [id number] 00:11:00* Test Item Value Reference Range Interpretation [...] reference range due to change in reagent. [id number] 00:11:00* Test Item Value Reference Range Interpretation Comments LIPASE (test code = LIP) 120 U/L 73.0-393.0 N HCG SERUM [id number] 00:11:00* Test Item Value Reference Range Interpretation Comments HCG SERUM QUAL (test code = HCGQL) NEGATIVE NEGATIVE This HCGQL test is NOT applicable for MALE patients.Check with nurse about probable order error.If Tumor Marker Test needed, nurse should order test "HCGTU"(Test #550.63061) [id number] 00:11:00* Test Item Value Reference Range Interpretation Comments TROPONIN-I (test code = TROPI) <0.015 ng/mL 0-0.045 N BASIC METABOLIC [id number] 00:07:00* Test Item Value Reference Range Interpretation [...] code = CA) mg/dL 8.5-10.1 HEPATIC FUNCTION [id number] 00:07:00* Test Item Value Reference Range Interpretation [...] TOTAL (test code = ALKP) IUnit/L 45-117 [id number] 00:07:00* Test Item Value Reference Range Interpretation Comments LIPASE (test code = LIP) U/L 73.0-393.0 HCG SERUM [id number] 00:07:00* Test Item Value Reference Range Interpretation Comments HCG SERUM QUAL (test code = HCGQL) NEGATIVE NEGATIVE This HCGQL test is NOT applicable for MALE patients.Check with nurse about probable order error.If Tumor Marker Test needed, nurse should order test "HCGTU"(Test #550.01434) [id number]-P2617-00-04 00:07:00* Test Item Value Reference Range Interpretation Comments TROPONIN-I (test code = TROPI) ng/mL 0-0.045 BASIC METABOLIC [id number] 00:06:00* Test Item Value Reference Range Interpretation [...] code = CA) mg/dL 8.5-10.1 HEPATIC FUNCTION [id number] 00:06:00* Test Item Value Reference Range Interpretation [...] TOTAL (test code = ALKP) IUnit/L 45-117 [id number] 00:06:00* Test Item Value Reference Range Interpretation Comments LIPASE (test code = LIP) U/L 73.0-393.0 HCG SERUM [id number] 00:06:00* Test Item Value Reference Range Interpretation Comments HCG SERUM QUAL (test code = HCGQL) NEGATIVE [id number] 00:06:00* Test Item Value Reference Range Interpretation Comments TROPONIN-I (test code = TROPI) ng/mL 0-0.045 CBC W/O [id number] 23:44:00* Test Item Value Reference Range Interpretation [...] MPV) 9.6 fL 6.7-11.0 N CBC W/O [id number] 23:43:00* Test Item Value Reference Range Interpretation [...] code = MPV) fL 6.7-11.0 NECK SOFT [id number] 23:43:00 [place] [address] Patient Name: PRASANNA DAMIAN MR #: [id number] : 1970 Age/Sex: 49/F Req #: [id number] Adm Physician: Ordered by: EV RECINOS DO Report #: [id number] Location: ER Room/Bed: Procedure: 36 DX/NECK SOFT [...] T O: EV RECINOS DO CHEST 2 [id number] 23:42:00 [place] [address] Patient Name: PRASANNA DAMIAN MR #: [id number] : 1970 Age/Sex: 49/F Req #: [id number] Adm Physician: Ordered by: EV RECINOS DO Report #: [id number] Location: ER Room/Bed: Procedure: 11000 35 DX/CHEST 2 VIEWS Exam Date: 04/25/19 [...] RECINOS DO - CT ABD PELVIS W/O [id number] 07:23:00 Name: PRASANNA DAMIAN [facility] : 1970 Age/S: 49 / F [address] Unit #: [id number] Loc: [place] [address] Phys: Kaylah Mcduffie DO Acct: [id number] Di s Date: Status: REG ER PHONE #: [phone] Exam Date: 04/13/2019 0624 FAX #: Reason: flank pain, r/o kidney stone EXAMS: CPT CODE: [id number] CT ABD PELVIS W/O CONT 41791 HISTORY: flank pain, r/o kidney stone TECHNIQUE: [...] 1 Signed Report (CONTINUED) Name: PRASANNA DAMIAN [facility] : 1970 Age/S: 49 / F [address] Unit #: [id number] Loc: [place] [address] Phys: Tracy Mcduffie DO Acct: [id number] Dis Date: Status: REG ER PHONE #: [phone] Exam Date: 04/13 FAX #: [phone] Reason: flank pain, r/o kidney stone EXAMS: CPT CODE: [id number] CT ABD PELVIS W/O CONT 74 176 <Continued> CC: Tracy Mcduffie DO Technologist:Marissa Recio,RT(R),CT CTDI: DLP: Trnscb Date/Time: 04/13/2019 (0723) LibbyP1 Orig Print D/T: S: 04/13/2019 (3184) PAGE 2 Signed Report BASIC METABOLIC [id number] 06:50:00* Test Item Value Reference Range Interpretation [...] CA) 9.4 mg/dL 8.5-10.1 N HEPATIC FUNCTION [id number] 06:50:00* Test Item Value Reference Range Interpretation [...] reference range due to change in reagent. [id number] 06:50:00* Test Item Value Reference Range Interpretation Comments LIPASE (test code = LIP) 96 U/L 73.0-393.0 N HCG SERUM [id number] 06:50:00* Test Item Value Reference Range Interpretation Comments HCG SERUM QUAL (test code = HCGQL) NEGATIVE NEGATIVE This HCGQL test is NOT applicable for MALE patients.Check with nurse about probable order error.If Tumor Marker Test needed, nurse should order test "HCGTU"(Test #550.25433) CBC W/O [id number] 06:44:00* Test Item Value Reference Range Interpretation [...] MPV) 9.9 fL 6.7-11.0 N CBC W/O [id number] 06:40:00* Test Item Value Reference Range Interpretation [...] code = MPV) fL 6.7-11.0 BASIC METABOLIC [id number] 06:37:00* Test Item Value Reference Range Interpretation [...] code = CA) mg/dL 8.5-10.1 HEPATIC FUNCTION [id number] 06:37:00* Test Item Value Reference Range Interpretation [...] TOTAL (test code = ALKP) IUnit/L 45-117 [id number] 06:37:00* Test Item Value Reference Range Interpretation Comments LIPASE (test code = LIP) U/L 73.0-393.0 HCG SERUM [id number] 06:37:00* Test Item Value Reference Range Interpretation Comments HCG SERUM QUAL (test code = HCGQL) NEGATIVE NEGATIVE This HCGQL test is NOT applicable for MALE patients.Check with nurse about probable order error.If Tumor Marker Test needed, nurse should order test "HCGTU"(Test #550.78079) BASIC METABOLIC [id number] 06:35:00* Test Item Value Reference Range Interpretation [...] code = CA) mg/dL 8.5-10.1 HEPATIC FUNCTION [id number] 06:35:00* Test Item Value Reference Range Interpretation [...] TOTAL (test code = ALKP) IUnit/L 45-117 [id number] 06:35:00* Test Item Value Reference Range Interpretation Comments LIPASE (test code = LIP) U/L 73.0-393.0 HCG SERUM [id number] 06:35:00* Test Item Value Reference Range Interpretation Comments HCG SERUM QUAL (test code = HCGQL) NEGATIVE URINALYSIS [id number] 06:17:00* Test Item Value Reference Range Interpretation [...] #/HPF NONE A Urine Source? Clean CatchSACRUM [id number] 16:31:00 [facility] [address] [place] [address] Patient Name: PRASANNA DAMIAN MR #: [id number] : 1970 Age/Sex: 48/F Req #: [id number] Adm Physician: Ordered by: KITTY RECIO MD Report #: [id number] Location: [facility] Room/Bed: Procedure: [id number] DX/SACRUM X-RAY Exam Date: 01/09/19 Exam Time: [...] KITTY RECIO MD SP LUMBAR, COMPLETE MIN [id number] 16:27:00 [facility] [address] [place] [address] Patient Name: PRASANNA DAMIAN MR #: [id number] : 1970 Age/Sex: 48/F Req #: [id number] Adm Physician: Ordered by: KITTY RECIO MD Report #: [id number] Location: RAD Room/Bed: Procedure: [id number] DX/SP LUMBAR, COMPLETE MIN 4VW Exam Date: [...] Signed By: KRIS BELCHER MD on 01/09/19 1630 Transcribed By: BYRON GIL on 01/09/19 1630 COPY TO: KITTY RECIO MD CT ABD/PEL WO [id number] 22:35:00 [place] [address] Patient Name: PRASANNA DAMIAN MR #: [id number] : 1970 Age/Sex: 48/F Req #: [id number] Adm Physician: Ordered by: YOBANI OWENS MD Report #: [id number] Location: [facility] Room/Bed: Procedure: [id number] 015 HOPD/CT ABD/PEL WO [...] YOBANI OWENS MD - CT L-SPINE W/O [id number] 08:26:00 Name: PRASANNA DAMIAN [facility] : 1970 Age/S: 47 / F [address] [facility] Unit #: [id number] Loc: [place] [address] Phys: JesusDonavan FOREIGN CORRESPONDENT Acct: [id number] Dis Date: Status: UNK PHONE #: [phone] Exam Date: 12/15/2017 0752 FAX #: Reason: back pain possible avulsion fracture on xray EXAMS: CPT CODE: [id number] CT L-SPINE W/O CONTRAST 72761 HISTORY: Low back pain and possible avulsion [...] Recio,RT(R),CT; [place]orena CTDI: DLP: Trnscb Date/Time: 12/15/2017 (08) t.SDR.TH4 Orig Print D/T: S: 12/15/2017 (4975) PAGE 1 Signed Report - XR L-SPINE 2/3 [id number] 06:43:00 FAX: Ya Arriaga NP [place]: St: UNK Name: PRASANNA KAM [facility] : [birth year] Age/S: 47/F [address] [facility] Unit #: [id number] Loc: [place] [address] Phys: Ya Arriaga NP Acct: [id number] Dis Date: Status: UNK PHONE #: [phone] Exam Date: 12/15/2017624 FAX #: [phone] Reason: pain after lifting EXAMS: CPT CODE: [id number] XR L-SPINE 2/3 VIEWS 44862 HISTORY: Pain Location: C3 FINDINGS: 3 images [...] By: [email or web address] Orig Print D/T: S: 12/15/2017 (0647) PAGE 1 Signed Report
--- OUTSIDE RECORDS SUMMARY | 2020-05-11 00:03 | XMS REPORT | Continuity of Care Document ---
Author Author Alfredo Johnie LindquistPRASANNA [facility] Mobile Address Unknown Phone Unavailable Care Team Providers Care Recovery Manager Name Role Phone Tred Information Access Information Management Unavailable Un available Problems Problem Status Onset Date Classification Date Reported Comments Source 789.0 - ABDOMINAL PAIN Active 06/12/2012 [facility] [place] 625.9 - FEM GENITAL SYM Active 03/31/2012 [facility] [place] V76.12 - SCREEN MAMMOGRA Active 03/27/2012 [facility] [place] Medications No Data Provided for This Section [...] made to exam dated: 03/31/2012 mammogram - [facility]. The tissue of both breasts is heterogeneously dense, which could obscure detection of small masses. No significant masses, calcifications, or other findings are seen in either breast. There has been no significant interval change. IMPRESSION: NEGATIVE There is no mammographic evidence of malignancy. A screening mammogram in one year is recommended. Dr. Martha Patino D.O. ht/penrad:06/25/2013 14:34:09 Director Of Teaching And Learning: Maggie Ba RT(R)(M), [facility] This exam was dictated and interpreted by [id number] for SCARLET Flannery. letter sent: Normal exam [...] or MRI for further evaluation. 06/22/2013 [facility] [place] Spine sacrum AP and Lat SACRUM SERIES CLINICAL HISTORY: Sacral pain. COMPARISON IMAGIN06/22/2013 lumbar spine radiography. FINDINGS: Two views were submitted for evaluation. Sacroiliac joints appear unremarkable. No fracture, dislocation, or radiopaque foreign body is seen. Alignment appears maintained. Soft tissues are within normal limits. IMPRESSION: No significant abnormality. 06/22/2013 [facility] [place] Consultation Notes No Data Provided for This Section Discharge Summaries No Data Provided for This Section History and Physicals No Data Provided for This Section Vital Signs No Data Provided for This Section Encounters Location Location Details Encounter Type Encounter Number Reason For Visit Attending Provider ADM Date DC Date Status Source OD [id number] V76.12 - SCREEN MAMMOGRA MATTHEW MARGO 03/31/2012 Active [facility] [place] OD [id number] 625.9 - FEM GENITAL SYM MATTHEW MARGO Cancel [facility] [place] OD [id number] 789.0 - ABDOMINAL PAIN MATTHEW MARGO Cancel [facility] [place] Procedures No Data Provided for This Section [...]
== END 2020-05-11 00:10 | disposition home or self-care (01) ==
LOC: ER 22:54
DX: R00.2 Palpitations (principal); M25.511 Pain in right shoulder; S46.911A Strain of unspecified muscle, fascia and tendon at shoulder and upper arm level, right arm, initial encounter; R11.0 Nausea; R94.31 Abnormal electrocardiogram [ECG] [EKG]; B20 Human immunodeficiency virus [HIV] disease; F43.10 Post-traumatic stress disorder, unspecified
CPT/HCPCS: 36415; 71045; 80053; 82150; 82550; 82553; 83690; 84484; 85025; 93005; 99284

== ENCOUNTER 2020-05-16 10:04 | Emergency (ER) | payer MEDICARE, OTHER ==
[~2020-05-16] VITALS: Ht 154.9 cm; Wt 60.8 kg
[2020-05-16] MEDS: PREDNISONE 20 MG TAB PO ONE (10:29)
[2020-05-16] MEDS: FAMOTIDINE 20 MG TAB PO ONE (10:29)
[2020-05-16] MEDS: DIPHENHYDRAMINE HCL 25 MG CAP PO ONE (10:29)
[2020-05-16] MEDS ORDERED: HYDROXYZINE HCL25 MG PO (10:32)
[2020-05-16] MEDS ORDERED: PREDNISONE20 MG PO (10:32)
--- NOTE | 2020-05-16 10:43 | Emergency Department Note ---
History of Present Illnes History of Present Illness Chief Complaint: Skin Rash or Abscess History of Present Illness This is a 50 year old female that has had a skin rash for the last 3 days worsening over the last 24-48 hours. Patient states that the rash was withdrawing her chest and started going up her neck and extremities. Patient associated with the rash has diffuse itching, over the last 24 hours with body aches and just feeling unwell . Denies severe headache, denies any meningeal signs, no neck pain. No mental status, no fever, no neck pain. Historian: Patient Arrival Mode: Car Onset (how long ago): day(s) (3) Location: diffuse Quality: itchy Severity: moderate Onset quality: gradual Duration (how long): day(s) (3) Timing of current episode: constant Progression: worsening Chronicity: new Context: Reports recent illness Relieving factors: none Exacerbating factors: none Associated symptoms: Reports denies other symptoms, Reports malaise, Reports rash; Denies chest pain, Denies cough, Denies fever/chills, Denies nausea/vomiting Past Medical/Family History Physician Review I have reviewed the patient's past medical and family history. Any updates have been documented here. Past Medical History Recent Fever: No Clinical Suspicion of Infectio: No New/Unexplained Change in Ment: No Past Medical History: Kidney Stones, UTI's, HIV, Other Mental Illness Other Medical History: HIV PTSD Past Surgical History: Other Surgery: LITHOTRIPSY, COLON BIOPSY, X3 Social History Smoking Cessation: Former smoker Alcohol Use: None Any Illegal Drug Use: No Physically hurt or threatened: No Other Last Tetanus: UTD Any Pre-Existing Lines (PICC,: No Review of Systems Review of Systems Constitutional: Reports as per HPI EENTM: Reports no symptoms Cardiovascular: Reports no symptoms Respiratory: Reports no symptoms Gastrointestinal: Reports no symptoms Genitourinary: Reports no symptoms Musculoskeletal: Reports no symptoms Integumentary: Reports as per HPI Neurological: Reports no symptoms Psychological: Reports no symptoms Endocrine: Reports no symptoms Hematological/Lymphatic: Reports no symptoms Physical Exam Related Data Allergies: Coded Allergies: hydrocodone (Verified Allergy, Severe, HIVES, 02/19/20) metronidazole (Verified Allergy, Intermediate, 02/19/20) sulfamethoxazole (Verified Allergy, Intermediate, 02/19/20) trimethoprim (Verified Allergy, Intermediate, 02/19/20) Penicillins (Verified Allergy, Unknown, 02/19/20) ibuprofen (Verified Allergy, Unknown, 05/10/20) morphine (Verified Adverse Reaction, Unknown, VOMITING, CONSTIPATION, 07/20/19) Triage Vital Signs Vital Signs Date Time Temp Pulse Resp B/P (MAP) Pulse Ox O2 Delivery O2 Flow Rate FiO2 05/16/20 10:05 99.4 83 16 122/74 99 Room Air Vital signs reviewed: Yes Physical Exam CONSTITUTIONAL Constitutional: Present well-developed, Present well-nourished HENT HENT: Present normocephalic, Present atraumatic, Present oropharynx clear/moist, Present nose normal HENT L/R: Present left ext ear normal, Present right ext ear normal EYES Eyes: Reports PERRL, Reports conjunctivae normal NECK Neck: Present ROM normal PULMONARY Pulmonary: Present effort normal, Present breath sounds normal CARDIOVASCULAR Cardiovascular: Present regular rhythm, Present heart sounds normal, Present capillary refill normal, Present normal rate GASTROINTESTINAL Abdominal: Present soft, Present nontender, Present bowel sounds normal GENITOURINARY Genitourinary: Present exam deferred SKIN Skin: Present warm, Present dry, Present rash (diffuse maculopapular rash to neck and torso and proximal lower and upper extremities with mild excoriation.) MUSCULOSKELETAL Musculoskeletal: Present ROM normal NEUROLOGICAL Neurological: Present alert, Present oriented x 3, Present no gross motor or sensory deficits PSYCHOLOGICAL Psychological: Present mood/affect normal, Present judgement normal Results Laboratory Laboratory Laboratory Tests Test 05/16/20 10:25 Assessment & Plan Medical Decision Making MDM Patient is a 50-year-old female that is here with a rash worsening over 3 days, itchy. No meningeal sign, spares the palms. We'll treat symptomatically for the rash, soft, with given that, can cause body aches brash and nonspecific malaise. Assessment & Plan Final Impression: (1) Rash and nonspecific skin eruption Depart Disposition: HOME, SELF-CARE Last Vital Signs Date Time Temp Pulse Resp B/P (MAP) Pulse Ox O2 Delivery O2 Flow Rate FiO2 05/16/20 10:05 99.4 83 16 122/74 99 Room Air Home Meds Active Scripts Hydroxyzine Hcl (HYDROXYZINE HCL) 25 Mg Tablet, 25 MG PO Q6H PRN for itching, #30 TAB Prov:LEXUS CARRERA MD 05/16/20 Prednisone (PREDNISONE) 20 Mg Tab, 60 MG PO DAILY, #15 TAB Prov:LEXUS CARRERA MD 05/16/20 Phenazopyridine Hcl (PYRIDIUM) 100 Mg Tablet, 100 MG PO TID, #9 TAB Prov:EV RECINOS, DO 02/19/20 Cephalexin Monohydrate (KEFLEX) 500 Mg Capsule, 500 MG PO Q6H, #40 TAB 0 Refills Prov:EV RECINOS, DO 02/19/20 Nitrofurantoin Monohyd/M-Cryst (MACROBID 100 MG CAPSULE) 100 Mg Capsule, 100 MG PO BIDWM, #14 CAP Prov:EV RECINOS, 02/19/20 Ondansetron (ONDANSETRON ODT) 8 Mg Tab.rapdis, 4 MG PO TID PRN for NAUSEA for 3 Days, #10 Prov:YOBANI OWENS MD 09/09/18 Naproxen (NAPROSYN) 500 Mg Tablet, 1 TAB PO BID PRN for PAIN for 7 Days, #14 Prov:YOBANI OWENS MD 09/09/18 Ondansetron Hcl (ZOFRAN) 8 Mg Tablet, 8 MG PO Q8H PRN for NAUSEA AND VOMITING, #12 TBS 0 Refills Prov:LEONID QUEZADA MD 06/21/18 Levofloxacin (LEVAQUIN) 500 Mg Tablet, 750 MG PO DAILY, #7 TAB 0 Refills Prov:LEONID QUEZADA MD 06/21/18 Reported Medications [Reyataz] No Conflict Check 04/16/12 [Novir] No Conflict Check 04/16/12 [Truvada] No Conflict Check 04/16/12 [Trazadone] No Conflict Check 04/16/12 [Cymbalta] No Conflict Check 04/16/12 [Hooven] No Conflict Check 04/16/12 Medications in the ED Prednisone 60 mg ONCE ONCE PO Last administered on 05/16/20at 10:29; Admin Dose 60 MG; Start 05/16/20 at 10:15; Stop 05/16/20 at 10:24; Status DC Famotidine 20 mg ONCE ONCE PO Last administered on 05/16/20at 10:29; Admin Dose 20 MG; Start 05/16/20 at 10:15; Stop 05/16/20 at 10:24; Status DC Diphenhydramine HCl 50 mg ONCE ONCE PO Last administered on 05/16/20at 10:29; Admin Dose 50 MG; Start 05/16/20 at 10:15; Stop 05/16/20 at 10:24; Status DC LEXUS CARRERA MD May 16, 2020 10:43
--- OUTSIDE RECORDS SUMMARY | 2020-05-16 11:34 | XMS REPORT | Continuity of Care Document ---
Author Author Alfredo Johnie LindquistPRASANNA [facility] [email or web address] Address Unknown Phone Unavailable Care Team Providers Care Mechanical Engineering Director Name Role Phone [employer] Information [facility] Unavailable Un available Problems Problem Status Onset Date Classification Date Reported Comments Source 789.0 - ABDOMINAL PAIN Active 06/12/2012 [facility] [place] 625.9 - FEM GENITAL SYM Active 03/31/2012 [facility] [place] V76.12 - SCREEN MAMMOGRA Active 03/27/2012 [facility] [place] Medications No Data Provided for This Section [...] made to exam dated: 03/31/2012 mammogram - [facility]. The tissue of both breasts is heterogeneously dense, which could obscure detection of small masses. No significant masses, calcifications, or other findings are seen in either breast. There has been no significant interval change. IMPRESSION: NEGATIVE There is no mammographic evidence of malignancy. A screening mammogram in one year is recommended. Dr. Martha Patino D.O. ht/penrad:06/25/2013 14:34:09 Stock Raiser: Maggie Ba RT(R)(M), [facility] This exam was dictated and interpreted by [id number] for SCARLET Flannery. letter sent: Normal exam [...] or MRI for further evaluation. 06/22/2013 [facility] [place] Spine sacrum AP and Lat SACRUM SERIES CLINICAL HISTORY: Sacral pain. COMPARISON IMAGIN06/22/2013 lumbar spine radiography. FINDINGS: Two views were submitted for evaluation. Sacroiliac joints appear unremarkable. No fracture, dislocation, or radiopaque foreign body is seen. Alignment appears maintained. Soft tissues are within normal limits. IMPRESSION: No significant abnormality. 06/22/2013 [facility] [place] Consultation Notes No Data Provided for This Section Discharge Summaries No Data Provided for This Section History and Physicals No Data Provided for This Section Vital Signs No Data Provided for This Section Encounters Location Location Details Encounter Type Encounter Number Reason For Visit Attending Provider ADM Date DC Date Status Source OD [id number] V76.12 - SCREEN MAMMOGRA MATTHEW MARGO 03/31/2012 Active [facility] [place] OD [id number] 625.9 - FEM GENITAL SYM MATTHEW MAGRO Cancel [facility] [place] OD [id number] 789.0 - ABDOMINAL PAIN MATTHEW MARGO Cancel [facility] [place] Procedures No Data Provided for This Section [...]
--- OUTSIDE RECORDS SUMMARY | 2020-05-16 11:36 | XMS REPORT | Continuity of Care Document ---
Author Author [facility] t Organization [facility] Address [address] [place] [address] Phone Unavailable Care Team Providers Care Prescriptionist Name Role Phone MD Wale RECIO MD PCP Kaylah MADRIGAL Attphys Unavailable KRIS TILLMAN Attphys Unavailable EV RECINOS Attphys Unavailable Wale RECIO Attphys Unavailable Rodolfo OWENS Attphys Unavailable Payers Payer Name Policy Type Policy Number Effective Date Expiration Date Abundio kesha [facility] Medicare Complete [id number] 2019 00:00:00 [facility] Care Improvement Plus [id number] 2017 00:00:00 [id number] [id number] 2017 00:00:00 [facility] Problems Condition Name Condition Details Condition Category Status Onset Date Resolution Date Last Treatment Date Treating Clinician Comments Source 789.0 - ABDOMINAL PAIN 789. 0 - ABDOMINAL PAIN Active 06/12/2012 OPID Icard Diagnosis Active 2012-06-12 00:01:00 2012-08-20 11:53:00 Formerly [facility] 625.9 - FEM GENITAL SYM 625. 9 - FEM GENITAL SYM Active 03/31/2012 MH OPID Icard Diagnosis Active 2012-03-31 00:01:00 2012-05-16 15:[facility]00 [facility] MAMMOGRA V76. 12 - SCREEN MAMMOGRA Active 03/27/2012 OPID Icard Diagnosis Active 2012-03-27 00:01:00 2012-03-31 14:55:00 [facility] Urinary tract infection Problem Active [facility] Problem with Neumann catheter Problem Active [facility] Neck pain Problem Active [facility] Strain of right shoulder Problem Active [facility] Nausea Problem Active [facility] Palpitations Problem Active [facility] Allergies, Adverse Reactions, Alerts Allergy Name Allergy Type Status Severity Reaction(s) Onset Date Inacti ve Date Treating Clinician Comments Source Ibuprofen Allergy to substance Active 2020-05-10 00:00:00 [facility] Penicillin Allergy to substance Active 2020-02-19 00:00:00 [facility] Hydrocodone Allergy to substance Active Severe HIVES 2020-02-19 00:00:00 [facility] Sulfamethoxazole Allergy to substance Active Moderate 2020-01-24 8 00:00:00 [facility] Trimethoprim Allergy to substance Active Moderate 2020-02-19 00:00 :00 [facility] Metronidazole Allergy to substance Active Moderate 2020-02-19 00:0 0:00 [facility] Penicillins DA Active U 2019-07-22 00:00:00 [facility] morphine DA Active U 2019-07-22 00:00:00 [facility] hydrocodone DA Active U 2019-07-22 00:00:00 [facility] acetaminophen DA Active U 2019-07-22 00:00:00 [facility] sulfamethoxazole DA Active U 2019-07-22 00:00:00 [facility] trimethoprim DA Active U 2019-07-22 00:00:00 [facility] Morphine Propensity to adverse reactions Active [facility]OMI TING, CONSTIPATION 2019-07-20 00:00:00 [facility] [place] 2019-05-26 00:00:00 [facility] hydro[place]one [place] 2019-04-13 00:00:00 [facility] Penicillins [place] 2019-04-13 00:00:00 [facility] morphine DA [place] 2019-04-13 00:00:00 [facility] trimethoprim DA Active [place] 2019-04-13 00:00:00 [facility] hydrocodone bit DA [place] 2018-04-21 00:00:00 [facility] Penicillins DA Active [place] 2018-04-21 00:00:00 [facility] morphine DA Active [place] 2018-04-21 00:00:00 [facility] trimethoprim DA Active [place] 2018-04-21 00:00:00 [facility] hydrocodone DA [place] 2017-12-15 00:00:00 [facility] acetaminophen DA Active [place] 2017-12-15 00:00:00 [facility] sulfamethoxazole DA [place] 2017-12-15 00:00:00 [facility] Penicillins DA Active [place] 2017-12-15 00:00:00 [facility] trimethoprim DA [place] 2017-12-15 00:00:00 [facility] hydrocodone bit DA [place] 2017-11-09 00:00:00 [facility] Penicillins DA [place] 2017-11-09 00:00:00 [facility] morphine DA [place] 2017-11-09 00:00:00 [facility] trimethoprim DA Active [place] 2017-11-09 00:00:00 [facility] Social History Social Habit Start Date Stop Date Quantity Comments Source Sex Assigned At 1970 00:00:00 1970 00:00:00 Female [facility] Medications Ordered Medication Name Filled Medication Name Start Date Stop Da te Current Medication? Ordering Clinician Indication Dosage Frequency Signature (SIG) Comments Components Source Cephalexin Monohydrate (Keflex) 500 Mg CAPSULE Cephale ronn Monohydrate (Keflex) 500 Mg CAPSULE 2020-02-19 13:28:00 Yes 500 Every 6 H ours [facility] Nitrofurantoin Monohyd/M-Cryst (Macrobid 100 Mg Capsul e) 100 Mg CAPSULE Nitrofurantoin Monohyd/M-Cryst (Macrobid 100 Mg Capsule) 100 Mg CAPSULE 2020-02-19 13:28:00 Yes 100 Twice Daily With M eals [facility] Phenazopyridine Hcl (Pyridium) 100 Mg TABLET Phenazopy ridine Hcl (Pyridium) 100 Mg TABLET 2020-02-19 13:28:00 Yes 100 Three Times A Day [facility] Ciprofloxacin Hcl (Cipro) 500 Mg TABLET Ciprofloxacin Hcl (C ipro) 500 Mg TABLET 2020-02-09 19:08:00 2020-02-09 00:00:00 No 500 Twice A Day [facility] Sulfamethoxazole/Trimethoprim (Bactrim Ds Tablet) 1 Ea ch TABLET Sulfamethoxazole/Trimethoprim (Bactrim Ds Tablet) 1 Each TABLET 2018-09-09 23:18:00 2018-09-09 00:00:00 No 1 Twice A Day [facility] Naproxen (Naprosyn) 500 Mg TABLET Naproxen (Naprosyn) 500 Mg TABLET 2018-09-09 22:57:00 Yes 1 Twice A Day as needed for [facility] Ondansetron (Ondansetron Odt) 8 Mg TAB.RAPDIS Ondanset john (Ondansetron Odt) 8 Mg TAB.RAPDIS 2018-09-09 22:57:00 Yes 4 T hree Times A Day as needed for Nausea [facility] Levofloxacin (Levaquin) 500 Mg TABLET Levofloxacin (Levaquin ) 500 Mg TABLET 2018-06-21 23:05:00 Yes 750 Daily [facility] Ondansetron Hcl (Zofran) 8 Mg TABLET Ondansetron Hcl (Zofran ) 8 Mg TABLET 2018-06-21 23:05:00 Yes 8 Every 8 Hours as needed for Nausea And Vomiting [facility] health [facility] Yes [facility] [place] Yes [facility] Novir Novir Yes [facility] Reyataz Reyataz Yes [facility] Trazadone Trazadone Yes [facility] Truvada Truvada Yes [facility] Vital Signs Vital Name Observation Time Observation Value Comments Source Heart Rate 2020-05-10 23:56:00 82 /min [facility] Respiratory rate 2020-05-10 23:56:00 20 /min [facility] BP Systolic 2020-05-10 23:56:00 114 mm[Hg] [facility] BP Diastolic 2020-05-10 23:56:00 69 mm[Hg] [facility] Oxygen saturation by Pulse oximetry 2020-05-10 23:56:00 97 /min [facility] Weight 2020-05-10 22:47:00 134 [lb_av] [facility] BMI (Body Mass Index) 2020-05-10 22:47:00 25.3 kg/m2 [facility] Weight 2020-04-06 18:27:00 134 [lb_av] [facility] BMI (Body Mass Index) 2020-04-06 18:27:00 25.3 kg/m2 [facility] Weight 2020-02-19 09:08:00 134 [lb_av] [facility] BMI (Body Mass Index) 2020-02-19 09:08:00 25.3 kg/m2 [facility] Body Temperature 2019-04-26 00:04:00 98.2 [degF] [facility] Procedures Procedure Date / Time Performed Performing Clinician Cornel ward Computed tomography of brain without radiopaque contrast 2020-03 00:00:00 [facility] Computed tomography of cervical spine without contrast 2020-03-24 4 00:00:00 [facility] Computed tomography of abdomen and pelvis with contrast 2019 00:00:00 GRISEL EV [facility] Plan of Care Planned Activity Planned Date Details Comments Source Instructions Strains [facility] Instructions Vomiting - Adult [facility] Encounters Start Date/Time End Date/Time Encounter Type Admission Type [facility] Facility Care Department Encounter ID Source 2020-05-10 22:54:00 2020-05-11 00:10:00 Departed Emergency Room MADRIGAL PHU [facility] [id number] [facility] 2020-04-06 20:15:00 2020-04-06 22:19:00 Departed Emergency Room 1 KRIS TILLMAN [facility] [id number] [facility] 2020-02-19 10:25:00 2020-02-19 13:59:00 Departed Emergency Room [facility] [id number] [facility] 2020-02-09 17:55:00 2020-02-09 20:25:[address] [facility] [id number] [facility] 2019-07-20 11:36:00 2019-07-20 16:50:00 Departed Emergency Room 1 GRISEL [facility] [id number] [facility] 2019-04-25 22:16:00 2019-04-26 00:12:00 Departed Emergency Room 1 MEENAILRodolfo [facility] [id number] [facility] 2019-01-09 15:18:00 2019-01-09 15:18:00 Registered Clinic [address] [facility] [id number] [facility] 2018-09-09 21:28:00 2018-09-09 23:12:00 Departed Emergency Room [address] [facility] [id number] [facility] 2018-06-21 19:52:00 2018-06-21 23:25:[address] [facility] [id number] [facility] Results Test Description Test Time Test Comments Results Result Comments Source SHOULDER RIGHT COMPLETE 2020-05-10 23:39:00 [facility] 1970 Sex: F [place] [address] Patient Name: PRASANNA DAMIAN MR #: [id number] : 1970 Age/Sex: 50/F Req #: [id number] Adm Physician: Ordered by: PHU MADRIGAL MD Report #: [id number] Location: ER Room/Bed: Procedure: [id number] DX/SHOULDER RIGHT COMPLETE Exam Date: 05/10/20 Exam [...] MD CHEST SINGLE (PORTABLE) 2020-05-10 23:38:00 [facility] 1970 Sex: F [facility] [address] [place] [address] Patient Name: PRASANNA DAMIAN MR #: [id number] : 1970 Age/Sex: 50/F Req #: [id number] [facility] Physician: Ordered by: PHU MADRIGAL MD Report #: [id number] Location: ER Room/Bed: Procedure: [id number] DX/CHEST SINGLE (PORTABLE) Exam Date: 05/10/20 Exam [...] on 05/10/202338 COPY TO: PHU MADRIGAL MD Blood leukocytes automated count (number/volume) 2020-05-10 22:59:00 Test Item White Blood Count (test code = 6690-2) 2.32 10*3/uL 4.8-10.8 [facility] count (number/volume)2020-05-10 22:59:00* Test Item Value Reference Range Interpretation Comments Red Blood Count (test code = 789-8) 4.07 10*6/mL 3.6-5.1 [facility] hemoglobin measurement (moles/volume)2020-05-10 22:59:00* Test Item Value Reference Range Interpretation Comments Hemoglobin (test code = 77795-1) 11.7 g/dL 12.0-16.0 [facility] CenterAutomated blood hematocrit (volume fraction)2020-05-10 22:59:00* Test Item Value Reference Range Interpretation Comments Hematocrit (test code = 4544-3) 34.9 % 34.2-44.1 [facility] CenterAutomated erythrocyte mean corpuscular [id number] 22:59:00* Test Item Value Reference Range Interpretation Comments Mean Corpuscular Volume (test code = 787-2) 85.7 81-99 [facility] CenterAutomated erythrocyte mean corpuscular hemoglobin (mass per erythrocyte)2020-05-10 22:59:00* Test Item Value Reference Range Interpretation Comments Mean Corpuscular Hemoglobin (test code = 785-6) 28.7 pg 28-32 [facility] CenterAutomated erythrocyte mean corpuscular hemoglobin concentration measurement (mass/volume)2020-05-10 22:59:00* Test Item Value Reference Range Interpretation Comments Mean Corpuscular Hemoglobin Concent (test code = 786-4) 33.5 g/dL 31-35 [facility] CenterRDW KxcIb-Muv6923-03-17 22:59:00* Test Item Value Reference Range Interpretation Comments Red Cell Distribution Width (test code = 75377-3) 12.2 % 11.7 -14.4 [facility] CenterAutomated blood platelet count (count/volume)2020-05-10 22:59:00* Test Item Value Reference Range Interpretation Comments Platelet Count (test code = 777-3) 207 10*3/uL 140-360 [facility] CenterAutomated blood segmented neutrophil count as percentage of total ktfzobdcth1130-81-21 22:59:00* Test Item Value Reference Range Interpretation Comments Neutrophils (%) (Auto) (test code = 66309-0) 44.5 % 38.7-80.0 [facility] CenterAutomated blood lymphocyte count as percentage ot total ghidadpico6095-77-83 22:59:00* Test Item Value Reference Range Interpretation Comments Lymphocytes (%) (Auto) (test code = 736-9) 41.8 % 18.0-39.1 [facility] CenterAutomated blood monocyte count as percentage of total dpfioubuih8229-01-49 22:59:00* Test Item Value Reference Range Interpretation Comments Monocytes (%) (Auto) (test code = 5905-5) 9.9 % 4.4-11.3 [facility] CenterAutomated blood eosinophil count as percentage of total rgvwgntzkc6934-04-86 22:59:00* Test Item Value Reference Range Interpretation Comments Eosinophils (%) (Auto) (test code = 713-8) 3.0 % 0.0-6.0 [facility] CenterAutomated blood basophil count as percentage of total aydhjmclsl7532-42-77 22:59:00* Test Item Value Reference Range Interpretation Comments Basophils (%) (Auto) (test code = 706-2) 0.4 % 0.0-1.0 [facility] CenterFluoroscopic procedure less than one hour iqrqqzxm7744-13-85 22:59:00* Test Item Value Reference Range Interpretation Comments IM GRANULOCYTES % (test code = IM GRANULOCYTES %) 0.4 % 0.0- 1.0 [facility] CenterAutomated blood neutrophil count 2020-05-10 22:59:00* Test Item Value Reference Range Interpretation Comments Neutrophils # (Auto) (test code = 751-8) 1.0 2.1-6.9 [facility] CenterBlood lymphocytes count (number/volume) 2020-05-10 22:59:00* Test Item Value Reference Range Interpretation Comments Lymphocytes # (Auto) (test code = 97770-7) 1.0 1.0-3.2 [facility] CenterBlsleep[facility] monocytes automated count (number/volume)2020-05-10 22:59:00* Test Item Value Reference Range Interpretation Comments Monocytes # (Auto) (test code = 742-7) 0.2 0.2-0.8 [facility] CenterAutomated blood eosinophil count 2020-05-10 22:59:00* Test Item Value Reference Range Interpretation Comments Eosinophils # (Auto) (test code = 711-2) 0.1 0.0-0.4 [facility] CenterAutomated blood basophil count (count/volume)2020-05-10 22:59:00* Test Item Value Reference Range Interpretation Comments Basophils # (Auto) (test code = 704-7) 0.0 0.0-0.1 [facility] CenterFluoroscopic procedure less than one hour mavcvzdg4606-85-51 22:59:00* Test Item Value Reference Range Interpretation Comments Absolute Immature Granulocyte (auto (angela t code = Absolute Immature Granulocyte (auto) 0.01 10*3/uL 0-0.1 [facility] sodium measurement (moles/volume)2020-05-10 22:59:00* Test Item Value Reference Range Interpretation Comments Sodium Level (test code = 2951-2) 142 mmol/L 136-145 [facility] Hospitalerum or plasma potassium measurement (moles/volume)2020-05-10 22:59:00* Test Item Value Reference Range Interpretation Comments Potassium Level (test code = 2823-3) 3.4 mmol/L 3.5-5.1 [facility] or plasma chloride measurement (moles/volume)2020-05-10 22:59:00* Test Item Value Reference Range Interpretation Comments Chloride Level (test code = 2075-0) 109 mmol/L 98-107 [facility] Hospitalerum or plasma carbon dioxide, total measurement (moles/volume)2020-05-10 22:59:00* Test Item Value Reference Range Interpretation Comments Carbon Dioxide Level (test code = 2028-9) 22 mmol/L 22- [facility] Hospitalerum or plasma anion [id number] 22:59:00* Test Item Value Reference Range Interpretation Comments Anion Gap (test code = 30538-6) 14.4 mmol/L 8-16 [facility]er[facility] or plasma urea nitrogen measurement (mass/volume)2020-05-10 22:59:00* Test Item Value Reference Range Interpretation Comments Blood Urea Nitrogen (test code = 3094-0) 10 mg/dL 7- [facility] Hospitalerum or plasma creatinine measurement (mass/volume)2020-05-10 22:59:00* Test Item Value Reference Range Interpretation Comments Creatinine (test code = 2160-0) 0.77 mg/dL 0.57-1.11 [facility] Hospitalerum or plasma urea nitrogen/creatinine mass srsmp3764-91-45 22:59:00* Test Item Value Reference Range Interpretation Comments BUN/Creatinine Ratio (test code = 3097-3) 13 6-25 [facility] CenterEstimated glomerular filtration rate (GFR) bzqkvznwxzuuj6626-01-38 22:59:00* Test Item Value Reference Range Interpretation Comments Estimat Glomerular Filtration Rate (test code = 713913510) > 60 mL/ min >60 Ranges were taken from the National Kidney Disease Education Program and the [facility] [employer] literature.Reference ranges:60 or greater: Xysbxe75-70 ( for 3 consecutive months): Chronic kidney disease 15 or less: Kidney failureDell Children's Medical CenterGlucose broafiehtiz9513-02-77 22:59:00* Test Item Value Reference Range Interpretation Comments Glucose Level (test code = SBD0290) 98 mg/dL 74-118 [facility] Hospitalerum or plasma calcium measurement (mass/volume)2020-05-10 22:59:00* Test Item Value Reference Range Interpretation Comments Calcium Level (test code = 76460-3) 8.8 mg/dL 8.4-10.2 [facility] Hospitalerum or plasma total bilirubin measurement (mass/volume)2020-05-10 22:59:00* Test Item Value Reference Range Interpretation Comments Total Bilirubin (test code = 1975-2) 0.2 mg/dL 0.2-1.2 [facility] CenterFluoroscopic procedure less than one hour enohsufy5435-80-39 22:59:00* Test Item Value Reference Range Interpretation Comments Aspartate Amino Transf (AST/SGOT) (test code = Aspartate Amino Transf (AST/SGOT)) 32 [IU]/L 5-34 [facility] Hospitalerum or plasma alanine aminotransferase measurement (enzymatic activity/volume)2020-05-10 22:59:00* Test Item Value Reference Range Interpretation Comments Alanine Aminotransferase (ALT/SGPT) (test code = 1742-6) 40 [IU]/L 0-55 [facility] Hospitalerum or plasma protein measurement (mass/volume)2020-05-10 22:59:00* Test Item Value Reference Range Interpretation Comments Total Protein (test code = 2885-2) 8.6 g/dL 6.5-8.1 [facility] Hospitalerum or plasma albumin measurement (mass/volume)2020-05-10 22:59:00* Test Item Value Reference Range Interpretation Comments Albumin (test code = 1751-7) 4.1 g/dL 3.5-5.0 [facility] CenterPlasma globulin measurement (mass/volume) 2020-05-10 22:59:00* Test Item Value Reference Range Interpretation Comments Globulin (test code = 16455-6) 4.5 g/dL 2.3-3.5 [facility] Hospitalerum or plasma albumin/globulin mass aptqm7300-32-17 22:59:00* Test Item Value Reference Range Interpretation Comments Albumin/Globulin Ratio (test code = 1759-0) 0.9 0.8-2.0 [facility] Hospitalerum or plasma alkaline phosphatase measurement (enzymatic activity/volume)2020-05-10 22:59:00* Test Item Value Reference Range Interpretation Comments Alkaline Phosphatase (test code = 6768-6) 120 [IU]/L 40-150 [facility] Hospitalerum or plasma creatine kinase measurement (enzymatic activity/volume)2020-05-10 22:59:00* Test Item Value Reference Range Interpretation Comments Creatine Kinase (test code = 2157-6) 79 [IU]/L 29-168 [facility] Hospitalerum or plasma creatine kinase MB measurement (mass/volume)2020-05-10 22:59:00* Test Item Value Reference Range Interpretation Comments Creatine Kinase MB (test code = 62376-3) 1.40 ng/mL 0-5.0 [facility] CenterTroponin I measurement by highly sensitive enzyme rdlchkgmngu5447-49-84 22:59:00* Test Item Value Reference Range Interpretation Comments Troponin I (test code = 07647-9) < 0.001 ng/mL 0-0.300 [facility] Hospitalerum or plasma amylase measurement (enzymatic activity/volume)2020-05-10 22:59:00* Test Item Value Reference Range Interpretation Comments Amylase Level (test code = 1798-8) 48 U/L 25-125 [facility] Hospitalerum or plasma lipase measurement (enzymatic activity/volume)2020-05-10 22:59:00* Test Item Value Reference Range Interpretation Comments Lipase (test code = 3040-3) 36 U/L 8-78 [facility] CenterCT [facility] SP[facility] [id number] 20:32:00 [facility] 1970 Sex: F [place] [address] Patient Name: PRASANNA DAMIAN MR #: [id number] : 1970 Age/Sex: 49/F Req #: [id number] Adm Physician: Ordered by: KRIS TILLMAN DO Report #: [id number] Location: ER Room/Bed: Procedure: [id number] CT/CT CERVICAL SPINE WO Exam D ate: 04/06/20 Exam Time: 1911 REPORT STATUS: Signed Exams: Head and cervical spine CT s without IV contrast History: Shoulder pain radiates to neck and back of h ead Comparison studies: None Technique: Axial images were obtained from the brain and cervical spine. Coronal and sagittal images reconstructed from the axial data. Dose modulation, iterative reconstruction, and/or weight based adjustment of the mA/kV was utilized to reduce the radiation dose to as low a s reasonably achievable. Intravenous contrast: None Findings: Head CT: Scalp: No abnormalities. Bones: No fractures, blastic or lytic lesions. Extra-axial spaces: No masses. No fluid collections. Brain sulci: Appropriate for age. Ventricles: Normal in size and configuration. No h ydrocephalus. Parenchyma: No abnormal densities. No masses, hemorrhage , acute or chronic vascular insults. Sellar/suprasellar region: No abnormal ities. Craniocervical junction: The foramen magnum is patent. No Chiari one malformation. Included paranasal sinuses: Clear. Middle ear cavities and mastoids: Clear. Cervical spine CT: Fractures: None. Soft tissues: No gross abnormalities. Atlantoaxial articulation: Intact. Alignment: Mil d reversal the usual cervical lordosis there is nonspecific. No subluxations. Cervicomedullary junction: No abnormalities. The foramen magnum is patent. Vertebrae: No infection or neoplasm. Degenerative changes: Mildl y degenerated C6-C7 disc. Moderate left facet arthrosis at C7-T1 superimposed on mild multilevel facet arthrosis. Incidental findings: Multiple scat tered bilateral cervical lymph nodes which are increased in number but are not significantly enlarged are nonspecific and may be reactive. IMPRESSION: Head CT: No acute intracranial abnormalities. Cervical spine CT: 1. No cervical spine fracture or subluxation. 2. Degenerative changes as descri bed. 3. Reversal of the usual cervical lordotic curvature may be positional or possibly related to muscle spasm. 4. Cannot exclude ligament, spinal co rd and or vascular abnormalities on the basis of this examination. Signed by: Dr. Colten Crabtree M.D. on 04/06/2020 8:44 PM Dictated By: COLTEN CARD MD 43 Transc ribed By: JUAN on 04/06/202043 COPY TO: KRIS TILLMAN DO CT BRAIN [id number] 20:32:00 [facility] [facility] : 1970 Sex: F [facility] [address] [address] Patient Name: PRASANNA DAMIAN MR #: [id number] : 1970 Age/Sex: 49/F Req #: [id number] Adm Physician: Ordered by: KRIS TILLMAN DO Report #: [id number] Location: ER Room/Bed: Procedure: [id number] CT/CT BRAIN WO Exam Date: 03/24 10/11 Exam Time: 1911 REPORT STATUS: Signed Exams: Head and cervical spine CTs without IV contrast History: Shoulder pain radiates to neck and back of head Com parison studies: None Technique: Axial images were obtained from the brai n and cervical spine. Coronal and sagittal images reconstructed from the axial data. Dose modulation, iterative reconstruction, and/or weight based adjustme nt of the mA/kV was utilized to reduce the radiation dose to as low as reasona jerman achievable. Intravenous contrast: None Findings: Head CT : Scalp: No abnormalities. Bones: No fractures, blastic or lytic lesions. Extra-axial spaces: No masses. No fluid collections. Brain sulci: Ap propriate for age. Ventricles: Normal in size and configuration. No hydrocepha bernarda. Parenchyma: No abnormal densities. No masses, hemorrhage, acute o r chronic vascular insults. Sellar/suprasellar region: No abnormalities. Craniocervical junction: The foramen magnum is patent. No Chiari one malforma tion. Included paranasal sinuses: Clear. Middle ear cavities and mastoids : Clear. Cervical spine CT: Fractures: None. Soft tissues: No gross abnormalities. Atlantoaxial articulation: Intact. Alignment: Mild reversa l the usual cervical lordosis there is nonspecific. No subluxations. Cerv icomedullary junction: No abnormalities. The foramen magnum is patent. Vert ebrae: No infection or neoplasm. Degenerative changes: Mildly degener ated C6-C7 disc. Moderate left facet arthrosis at C7-T1 superimposed on mild multilevel facet arthrosis. Incidental findings: Multiple scattered yen ateral cervical lymph nodes which are increased in number but are not signific antly enlarged are nonspecific and may be reactive. IMPRESSION: Head C T: No acute intracranial abnormalities. Cervical spine CT: 1. No cervi aranza spine fracture or subluxation. 2. Degenerative changes as described. 3 . Reversal of the usual cervical lordotic curvature may be positional or poss ibly related to muscle spasm. 4. Cannot exclude ligament, spinal cord and or vascular abnormalities on the basis of this examination. Signed by: Dr. Colten Crabtree M.D. on 04/06/2020 8:44 PM Dictated By: COLTEN CRABTREE MD 43 Transcribed By: JUAN on 04/06/202043 COPY TO: KRIS TILLMAN DO Urine color zidbtxkvlbahx3280-09-64 10:43:00* Test Item Value Reference Range Interpretation Comments Urine Color (test code = 5778-6) YELLOW YELLOW [facility] bsktjwh1838-68-41 10:43:00* Test Item Value Reference Range Interpretation Comments Urine Clarity (test code = 02062-5) CLEAR CLEAR [facility] U[facility] by Test strip 2020-02-19 10:43:00* Test Item Value Reference Range Interpretation Comments Urine Specific [place] (test code = 5811-5) 1.020 1.010-1.02 5 [facility] CenterU[facility] pH measurement by automated test uenru0257-09-33 10:43:00* Test Item Value Reference Range Interpretation Comments Urine pH (test code = 97086-2) 7 5-7 [facility] CenterUrine leukocyte esterase detection by zryqnxyw6853-31-75 10:43:00* Test Item Value Reference Range Interpretation Comments Urine Leukocyte Esterase (test code = 5799-2) MODERATE NEGATIVE [facility] CenterUrine nitrite grwplwacz8077-78-31 10:43:00* Test Item Value Reference Range Interpretation Comments Urine Nitrite (test code = 20023-5) NEGATIVE NEGATIVE [facility] CenterUrine protein measurement by test strip (mass/volume)2020-02-19 10:43:00* Test Item Value Reference Range Interpretation Comments Urine Protein (test code = 5804-0) NEGATIVE NEGATIVE [facility] CenterUrine glucose yueglropd2820-05-07 10:43:00* Test Item Value Reference Range Interpretation Comments Urine Glucose (UA) (test code = 2349-9) NEGATIVE NEGATIVE [facility] CenterUrine ketones detection by automated test vzbel7169-67-25 10:43:00* Test Item Value Reference Range Interpretation Comments Urine Ketones (test code = 45466-2) NEGATIVE NEGATIVE [facility] CenterUrine urobilinogen measurement by test strip (mass/volume)2020-02-19 10:43:00* Test Item Value Reference Range Interpretation Comments Urine Urobilinogen (test code = 11612-1) 0.2 mg/dL 0.2-1 [facility] CenterU[facility] total bilirubin measurement (mass/volume)2020-02-19 10:43:00* Test Item Value Reference Range Interpretation Comments Urine Bilirubin (test code = 1978-6) NEGATIVE NEGATIVE [facility] CenterUrine erythrocytes vrulspzqa5808-97-74 10:43:00* Test Item Value Reference Range Interpretation Comments Urine Blood (test code = 84646-7) TRACE NEGATIVE [facility] CenterAutomated urine sediment leukocyte count by microscopy (number/high power field)2020-02-19 10:43:00* Test Item Value Reference Range Interpretation Comments Urine WBC (test code = 5821-4) >50 /[HPF] 0-5 [facility] CenterErythrocytes detection in urine sediment by light lbkjqccqzj3327-69-78 10:43:00* Test Item Value Reference Range Interpretation Comments Urine RBC (test code = 42542-6) 6-10 /[HPF] 0-5 [facility] CenterBacteria detection in urine sediment by light oowqydvobk7174-98-68 10:43:00* Test Item Value Reference Range Interpretation Comments Urine Bacteria (test code = 48229-4) MODERATE /[HPF] NONE [facility] CenterEpithelial cells detection in urine sediment by light kfqkhfsevk6358-96-61 10:43:00* Test Item Value Reference Range Interpretation Comments Urine Epithelial Cells (test code = 52736-8) FEW /[LPF] NONE [facility] CenterMucus detection in urine sediment by light iljfdumdvx3287-12-16 10:43:00* Test Item Value Reference Range Interpretation Comments Urine Mucus (test code = 8247-9) FEW RARE [facility] CenterUrine color beazvbdasiwqn8722-44-83 09:43:00* Test Item Value Reference Range Interpretation Comments Urine Color (test code = 5778-6) YELLOW YELLOW [facility] CenterUrine xiuuvyl7742-51-82 09:43:00* Test Item Value Reference Range Interpretation Comments Urine Clarity (test code = 15011-8) CLEAR CLEAR [facility] Urine by Test strip 2020-02-19 09:43:00* Test Item Value Reference Range Interpretation Comments Urine Specific [place] (test code = 5811-5) 1.020 1.010-1.02 5 [facility] CenterU[facility] pH measurement by automated test jbpba1033-41-88 09:43:00* Test Item Value Reference Range Interpretation Comments Urine pH (test code = 00118-2) 7 5-7 [facility] CenterUrine leukocyte esterase detection by rcgzrooa2115-53-11 09:43:00* Test Item Value Reference Range Interpretation Comments Urine Leukocyte Esterase (test code = 5799-2) MODERATE NEGATIVE [facility] CenterUrine nitrite jygjjyngq8728-47-54 09:43:00* Test Item Value Reference Range Interpretation Comments Urine Nitrite (test code = 84525-5) NEGATIVE NEGATIVE [facility] CenterUrine protein measurement by test strip (mass/volume)2020-02-19 09:43:00* Test Item Value Reference Range Interpretation Comments Urine Protein (test code = 5804-0) NEGATIVE NEGATIVE [facility] CenterUrine glucose ndrklmhqo8390-24-45 09:43:00* Test Item Value Reference Range Interpretation Comments Urine Glucose (UA) (test code = 2349-9) NEGATIVE NEGATIVE [facility] CenterUrine ketones detection by automated test xizzt3191-12-50 09:43:00* Test Item Value Reference Range Interpretation Comments Urine Ketones (test code = 56541-2) NEGATIVE NEGATIVE [facility] CenterUrine urobilinogen measurement by test strip (mass/volume)2020-02-19 09:43:00* Test Item Value Reference Range Interpretation Comments Urine Urobilinogen (test code = 10671-0) 0.2 0.2-1 [facility] CenterUrine total bilirubin measurement (mass/volume)2020-02-19 09:43:00* Test Item Value Reference Range Interpretation Comments Urine Bilirubin (test code = 1978-6) NEGATIVE NEGATIVE [facility] CenterUrine erythrocytes kuwkelfsd7779-23-10 09:43:00* Test Item Value Reference Range Interpretation Comments Urine Blood (test code = 04313-7) TRACE NEGATIVE [facility] CenterAutomated urine sediment leukocyte count by microscopy (number/high power field)2020-02-19 09:43:00* Test Item Value Reference Range Interpretation Comments Urine WBC (test code = 5821-4) >50 0-5 [facility] CenterErythrocytes detection in urine sediment by light hryyqxpmap6177-39-77 09:43:00* Test Item Value Reference Range Interpretation Comments Urine RBC (test code = 60389-7) 6-10 0-5 [facility] CenterBacteria detection in urine sediment by light uxmnkaofzq6684-61-48 09:43:00* Test Item Value Reference Range Interpretation Comments Urine Bacteria (test code = 84801-1) MODERATE NONE [facility] CenterEpithelial cells detection in urine sediment by light jwzkjqnrlp1053-18-38 09:43:00* Test Item Value Reference Range Interpretation Comments Urine Epithelial Cells (test code = 63297-6) FEW NONE [facility] CenterMucus detection in urine sediment by light gxbaylhave1878-47-86 09:43:00* Test Item Value Reference Range Interpretation Comments Urine Mucus (test code = 8247-9) FEW RARE [facility] CenterUrine color dlntearwzzdxa6637-30-85 09:43:00* Test Item Value Reference Range Interpretation Comments Urine Color (test code = 5778-6) YELLOW YELLOW [facility] CenterUrine zelzavo2325-56-68 09:43:00* Test Item Value Reference Range Interpretation Comments Urine Clarity (test code = 28652-4) CLEAR CLEAR [facility]pecific gravity of Urine by Test strip 2020-02-19 09:43:00* Test Item Value Reference Range Interpretation Comments Urine Specific [place] (test code = 5811-5) 1.020 1.010-1.02 5 [facility] CenterUrine pH measurement by automated test bkmph4761-76-26 09:43:00* Test Item Value Reference Range Interpretation Comments Urine pH (test code = 39282-4) 7 5-7 [facility] CenterUrine leukocyte esterase detection by adbinibo4134-40-06 09:43:00* Test Item Value Reference Range Interpretation Comments Urine Leukocyte Esterase (test code = 5799-2) MODERATE NEGATIVE [facility] CenterUrine nitrite zvdxxeydf1694-94-47 09:43:00* Test Item Value Reference Range Interpretation Comments Urine Nitrite (test code = 90019-4) NEGATIVE NEGATIVE [facility] CenterUrine protein measurement by test strip (mass/volume)2020-02-19 09:43:00* Test Item Value Reference Range Interpretation Comments Urine Protein (test code = 5804-0) NEGATIVE NEGATIVE [facility] CenterUrine glucose exfmwpren0951-25-42 09:43:00* Test Item Value Reference Range Interpretation Comments Urine Glucose (UA) (test code = 2349-9) NEGATIVE NEGATIVE [facility] CenterUrine ketones detection by automated test kxnze9263-67-03 09:43:00* Test Item Value Reference Range Interpretation Comments Urine Ketones (test code = 72386-2) NEGATIVE NEGATIVE [facility] CenterUrine urobilinogen measurement by test strip (mass/volume)2020-02-19 09:43:00* Test Item Value Reference Range Interpretation Comments Urine Urobilinogen (test code = 89339-6) 0.2 0.2-1 [facility] CenterUrine total bilirubin measurement (mass/volume)2020-02-19 09:43:00* Test Item Value Reference Range Interpretation Comments Urine Bilirubin (test code = 1978-6) NEGATIVE NEGATIVE [facility] CenterUrine erythrocytes wqcaeklbh1602-38-18 09:43:00* Test Item Value Reference Range Interpretation Comments Urine Blood (test code = 25720-8) TRACE NEGATIVE [facility] CenterAutomated urine sediment leukocyte count by microscopy (number/high power field)2020-02-19 09:43:00* Test Item Value Reference Range Interpretation Comments Urine WBC (test code = 5821-4) >50 0-5 [facility] CenterErythrocytes detection in urine sediment by light owjggoylfm1776-08-81 09:43:00* Test Item Value Reference Range Interpretation Comments Urine RBC (test code = 20513-2) 6-10 0-5 [facility] CenterBacteria detection in urine sediment by light izeabqdxxw1011-23-94 09:43:00* Test Item Value Reference Range Interpretation Comments Urine Bacteria (test code = 90528-6) MODERATE NONE [facility] CenterEpithelial cells detection in urine sediment by light bqqkhdgkas8424-45-13 09:43:00* Test Item Value Reference Range Interpretation Comments Urine Epithelial Cells (test code = 46024-2) FEW NONE [facility] CenterMucus detection in urine sediment by light vozmuuzcei3936-24-08 09:43:00* Test Item Value Reference Range Interpretation Comments Urine Mucus (test code = 8247-9) FEW RARE [facility] CenterTransitional cells detection in urine sediment by light tbzhlytztn1332-13-89 17:50:00* Test Item Value Reference Range Interpretation Comments Urine Transitional Epithelial Cells (test code = 8249-5) FEW NONE [facility] Hospitalerum or plasma choriogonadotropin ( test) gcadrxmyj9298-43-52 17:50:00* Test Item Value Reference Range Interpretation Comments Human Chorionic Gonadotropin, Qual (test code = 2118-8) NEGATIVE NEGATIVE [facility] CenterBacterial urine swrzeii7273-76-65 17:40:00* Test Item Value Reference Range Interpretation Comments Urine Culture (test code = 630-4) ENTEROCOCCUS FAECALIS [facility] CenterBlood leukocytes automated count (number/volume)2020-02-09 16:50:00* Test Item Value Reference Range Interpretation Comments White Blood Count (test code = 6690-2) 6.00 4.8-10.8 [facility] CenterBlood erythrocytes automated count (number/volume)2020-02-09 16:50:00* Test Item Value Reference Range Interpretation Comments Red Blood Count (test code = 789-8) 3.82 3.6-5.1 [facility] CenterBlood hemoglobin measurement (moles/volume)2020-02-09 16:50:00* Test Item Value Reference Range Interpretation Comments Hemoglobin (test code = 24806-9) 11.3 12.0-16.0 [facility] CenterAutomated blood hematocrit (volume fraction)2020-02-09 16:50:00* Test Item Value Reference Range Interpretation Comments Hematocrit (test code = 4544-3) 34.1 34.2-44.1 [facility] CenterAutomated erythrocyte mean corpuscular msxylj3120-70-63 16:50:00* Test Item Value Reference Range Interpretation Comments Mean Corpuscular Volume (test code = 787-2) 89.3 81-99 [facility] CenterAutomated erythrocyte mean corpuscular hemoglobin (mass per erythrocyte)2020-02-09 16:50:00* Test Item Value Reference Range Interpretation Comments Mean Corpuscular Hemoglobin (test code = 785-6) 29.6 28-32 [facility] CenterAutomated erythrocyte mean corpuscular hemoglobin concentration measurement (mass/volume)2020-02-09 16:50:00* Test Item Value Reference Range Interpretation Comments Mean Corpuscular Hemoglobin Concent (test code = 786-4) 33.1 31-35 [facility] CenterRDW CcqGw-Pmd0849-34-18 16:50:00* Test Item Value Reference Range Interpretation Comments Red Cell Distribution Width (test code = 12038-5) 13.9 11.7 -14.4 [facility] CenterAutomated blood platelet count (count/volume)2020-02-09 16:50:00* Test Item Value Reference Range Interpretation Comments Platelet Count (test code = 777-3) 334 140360 [facility] CenterAutomated blood segmented neutrophil count as percentage of total ktudwnmhkc1453-36-32 16:50:00* Test Item Value Reference Range Interpretation Comments Neutrophils (%) (Auto) (test code = 35609-8) 63.8 38.7-80.0 [facility] CenterAutomated blood lymphocyte count as percentage ot total aaoayrhbgz3148-72-28 16:50:00* Test Item Value Reference Range Interpretation Comments Lymphocytes (%) (Auto) (test code = 736-9) 24.5 18.0-39.1 [facility] CenterAutomated blood monocyte count as percentage of total omwbghkvpg0196-00-67 16:50:00* Test Item Value Reference Range Interpretation Comments Monocytes (%) (Auto) (test code = 5905-5) 5.5 4.4-11.3 [facility] CenterAutomated blood eosinophil count as percentage of total jxnowczfog6757-05-41 16:50:00* Test Item Value Reference Range Interpretation Comments Eosinophils (%) (Auto) (test code = 713-8) 5.2 0.0-6.0 [facility] CenterAutomated blood basophil count as percentage of total euewkcxmfq9885-75-07 16:50:00* Test Item Value Reference Range Interpretation Comments Basophils (%) (Auto) (test code = 706-2) 0.5 0.0-1.0 [facility] CenterFluoroscopic procedure less than one hour rtoxfzzx7306-54-95 16:50:00* Test Item Value Reference Range Interpretation Comments IM GRANULOCYTES % (test code = IM GRANULOCYTES %) 0.5 0.0- 1.0 [facility] CenterAutomated blood neutrophil count 2020-02-09 16:50:00* Test Item Value Reference Range Interpretation Comments Neutrophils # (Auto) (test code = 751-8) 3.8 2.1-6.9 [facility] CenterBlood lymphocytes count (number/volume) 2020-02-09 16:50:00* Test Item Value Reference Range Interpretation Comments Lymphocytes # (Auto) (test code = 70385-1) 1.5 1.0-3.2 [facility] CenterBlood monocytes automated count (number/volume)2020-02-09 16:50:00* Test Item Value Reference Range Interpretation Comments Monocytes # (Auto) (test code = 742-7) 0.3 0.2-0.8 [facility] CenterAutomated blood eosinophil count 2020-02-09 16:50:00* Test Item Value Reference Range Interpretation Comments Eosinophils # (Auto) (test code = 711-2) 0.3 0.0-0.4 [facility] CenterAutomated blood basophil count (count/volume)2020-02-09 16:50:00* Test Item Value Reference Range Interpretation Comments Basophils # (Auto) (test code = 704-7) 0.0 0.0-0.1 [facility] CenterFluoroscopic procedure less than one hour lcjiguip3385-69-25 16:50:00* Test Item Value Reference Range Interpretation Comments Absolute Immature Granulocyte (auto (angela t code = Absolute Immature Granulocyte (auto) 0.03 0-0.1 [facility] CenterTransitional cells detection in urine sediment by light xbcvsboghs2736-55-41 16:50:00* Test Item Value Reference Range Interpretation [...] 22-29 [facility] Hospitalerum or plasma anion ijw7761-11-05 16:50:00* Test Item Value Reference Range Interpretation Comments Anion Gap (test code = 09710-7) 15.1 8-16 [facility] Hospitalerum or plasma urea nitrogen measurement (mass/volume)2020-02-09 16:50:00* Test Item Value Reference Range Interpretation Comments Blood Urea Nitrogen (test code = 3094-0) 20 7-26 [facility] Hospitalerum or plasma creatinine measurement (mass/volume)2020-02-09 16:50:00* Test Item Value Reference Range Interpretation Comments Creatinine (test code = 2160-0) 0.83 0.57-1.11 [facility] Hospitalerum or plasma urea nitrogen/creatinine mass jjnki1484-94-20 16:50:00* Test Item Value Reference Range Interpretation Comments BUN/Creatinine Ratio (test code = 3097-3) 24 6- [facility] CenterEstimated glomerular filtration rate (GFR) ymehvuhvciung9475-46-38 16:50:00* Test Item Value Reference Range Interpretation Comments Estimat Glomerular Filtration Rate (test code = 935477339) > 60 >60 Ranges were taken from the National Kidney Disease Education Program and the [facility] Kidney Foundation literature.Reference ranges:60 or greater: Dhzsfw38-54 ( for 3 consecutive months): Chronic kidney disease 15 or less: Kidney failureDell Children's Medical CenterGlucose wvyosnfdzlf9876-02-34 16:50:00* Test Item Value Reference Range Interpretation Comments Glucose Level (test code = LPP6958) 89 74-118 [facility] Hospitalerum or plasma calcium measurement (mass/volume)2020-02-09 16:50:00* Test Item Value Reference Range Interpretation Comments Calcium Level (test code = 53697-7) 9.8 8.4-10.2 [facility] Hospitalerum or plasma total bilirubin measurement (mass/volume)2020-02-09 16:50:00* Test Item Value Reference Range Interpretation Comments Total Bilirubin (test code = 1975-2) 0.2 0.2-1.2 [facility] CenterFluoroscopic procedure less than one hour lswisyql8173-08-31 16:50:00* Test Item Value Reference Range Interpretation [...] Albumin (test code = 1751-7) 4.2 3.5-5.0 [facility] CenterPlasma globulin measurement (mass/volume) 2020-02-09 16:50:00* Test Item Value Reference Range Interpretation Comments Globulin (test code = 18962-5) 4.3 2.3-3.5 [facility] Hospitalerum or plasma albumin/globulin mass guywu0924-92-94 16:50:00* Test Item Value Reference Range Interpretation Comments Albumin/Globulin Ratio (test code = 1759-0) 1.0 0.8-2.0 [facility] Hospitalerum or plasma alkaline phosphatase measurement (enzymatic activity/volume)2020-02-09 16:50:00* Test Item Value Reference Range Interpretation Comments Alkaline Phosphatase (test code = 6768-6) 132 40-150 [facility] Hospitalerum or plasma choriogonadotropin ( test) zihzdtkgf9893-71-86 16:50:00* Test Item Value Reference Range Interpretation Comments Human Chorionic Gonadotropin, Qual (test code = 2118-8) NEGATIVE NEGATIVE [facility] CenterBlood leukocytes automated count (number/volume)2020-02-09 16:50:00* Test Item Value Reference Range Interpretation Comments White Blood Count (test code = 6690-2) 6.00 4.8-10.8 [facility] CenterBlsleepy eye [facility] erythrocytes automated count (number/volume)2020-02-09 16:50:00* Test Item Value Reference Range Interpretation Comments Red Blood Count (test code = 789-8) 3.82 3.6-5.1 [facility] CenterBlood hemoglobin measurement (moles/volume)2020-02-09 16:50:00* Test Item Value Reference Range Interpretation Comments Hemoglobin (test code = 82850-0) 11.3 12.0-16.0 [facility] CenterAutomated blood hematocrit (volume fraction)2020-02-09 16:50:00* Test Item Value Reference Range Interpretation Comments Hematocrit (test code = 4544-3) 34.1 34.2-44.1 [facility] CenterAutperson memorial hospitaled erythrocyte mean corpuscular cpcxwn4670-25-16 16:50:00* Test Item Value Reference Range Interpretation Comments Mean Corpuscular Volume (test code = 787-2) 89.3 81-99 [facility] CenterAutomated erythrocyte mean corpuscular hemoglobin (mass per erythrocyte)2020-02-09 16:50:00* Test Item Value Reference Range Interpretation Comments Mean Corpuscular Hemoglobin (test code = 785-6) 29.6 28-32 [facility] CenterAutperson memorial hospitaled erythrocyte mean corpuscular hemoglobin concentration measurement (mass/volume)2020-02-09 16:50:00* Test Item Value Reference Range Interpretation Comments Mean Corpuscular Hemoglobin Concent (test code = 786-4) 33.1 31-35 [facility] CenterRDW BmsUx-Wtr3777-40-18 16:50:00* Test Item Value Reference Range Interpretation Comments Red Cell Distribution Width (test code = 63493-0) 13.9 11.7 -14.4 [facility] CenterAutperson memorial hospitaled blood platelet count (count/volume)2020-02-09 16:50:00* Test Item Value Reference Range Interpretation Comments Platelet Count (test code = 777-3) 334 140-360 [facility] CenterAutomated blood segmented neutrophil count as percentage of total txdmwwsayz9329-25-09 16:50:00* Test Item Value Reference Range Interpretation Comments Neutrophils (%) (Auto) (test code = 52467-5) 63.8 38.7-80.0 [facility] CenterAutomated blood lymphocyte count as percentage ot total duhacpovbt0942-12-69 16:50:00* Test Item Value Reference Range Interpretation Comments Lymphocytes (%) (Auto) (test code = 736-9) 24.5 18.0-39.1 [facility] CenterAutomated blood monocyte count as percentage of total enuxfymmay9906-95-95 16:50:00* Test Item Value Reference Range Interpretation Comments Monocytes (%) (Auto) (test code = 5905-5) 5.5 4.4-11.3 [facility] CenterAutperson memorial hospitaled blood eosinophil count as percentage of total ohlwynvton4358-50-27 16:50:00* Test Item Value Reference Range Interpretation Comments Eosinophils (%) (Auto) (test code = 713-8) 5.2 0.0-6.0 [facility] CenterAutomated blood basophil count as percentage of total ozlmbsglcp4572-71-61 16:50:00* Test Item Value Reference Range Interpretation Comments Basophils (%) (Auto) (test code = 706-2) 0.5 0.0-1.0 [facility] CenterFluoroscopic procedure less than one hour jzxgprca2145-00-76 16:50:00* Test Item Value Reference Range Interpretation Comments IM GRANULOCYTES % (test code = IM GRANULOCYTES %) 0.5 0.0- 1.0 [facility] CenterAutomated blood neutrophil count 2020-02-09 16:50:00* Test Item Value Reference Range Interpretation Comments Neutrophils # (Auto) (test code = 751-8) 3.8 2.1-6.9 [facility] CenterBlsleepy eye [facility] lymphocytes count (number/volume) 2020-02-09 16:50:00* Test Item Value Reference Range Interpretation Comments Lymphocytes # (Auto) (test code = 38245-9) 1.5 1.0-3.[address] [facility] CenterBlood monocytes automated count (number/volume)2020-02-09 16:50:00* Test Item Value Reference Range Interpretation Comments Monocytes # (Auto) (test code = 742-7) 0.3 0.2-0.8 [facility] CenterAutomated blood eosinophil count 2020-02-09 16:50:00* Test Item Value Reference Range Interpretation Comments Eosinophils # (Auto) (test code = 711-2) 0.3 0.0-0.4 [facility] CenterAutomated blood basophil count (count/volume)2020-02-09 16:50:00* Test Item Value Reference Range Interpretation Comments Basophils # (Auto) (test code = 704-7) 0.0 0.0-0.1 [facility] CenterFluoroscopic procedure less than one hour pxzmjysr5542-08-48 16:50:00* Test Item Value Reference Range Interpretation Comments Absolute Immature Granulocyte (auto (angela t code = Absolute Immature Granulocyte (auto) 0.03 0-0.1 [facility] CenterTransitional cells detection in urine sediment by light yoapvumoep7872-52-44 16:50:00* Test Item Value Reference Range Interpretation [...] 22-29 [facility] Hospitalerum or plasma anion xgm5111-87-69 16:50:00* Test Item Value Reference Range Interpretation Comments Anion Gap (test code = 43390-7) 15.1 8-16 [facility] Hospitalerum or plasma urea nitrogen measurement (mass/volume)2020-02-09 16:50:00* Test Item Value Reference Range Interpretation Comments Blood Urea Nitrogen (test code = 3094-0) 20 7- [facility] Hospitalerum or plasma creatinine measurement (mass/volume)2020-02-09 16:50:00* Test Item Value Reference Range Interpretation Comments Creatinine (test code = 2160-0) 0.83 0.57-1.11 [facility] Hospitalerum or plasma urea nitrogen/creatinine mass ngope3372-91-24 16:50:00* Test Item Value Reference Range Interpretation Comments BUN/Creatinine Ratio (test code = 3097-3) 24 6- [facility] CenterEstimated glomerular filtration rate (GFR) lsxucjcvjkxpj4176-13-64 16:50:00* Test Item Value Reference Range Interpretation Comments Estimat Glomerular Filtration Rate (test code = 587433268) > 60 >60 Ranges were taken from the National Kidney Disease Education Program and the [facility] literature.Reference ranges:60 or greater: Voydhc95-75 ( for 3 consecutive months): Chronic kidney disease 15 or less: Kidney failureDell Children's Medical CenterGlucose xyxzlgmfsre0881-31-39 16:50:00* Test Item Value Reference Range Interpretation Comments Glucose Level (test code = YDZ2815) 89 74-118 [facility] Hospitalerum or plasma calcium measurement (mass/volume)2020-02-09 16:50:00* Test Item Value Reference Range Interpretation Comments Calcium Level (test code = 86733-5) 9.8 8.4-10.2 [facility] Hospitalerum or plasma total bilirubin measurement (mass/volume)2020-02-09 16:50:00* Test Item Value Reference Range Interpretation Comments Total Bilirubin (test code = 1975-2) 0.2 0.2-1.[address] [facility] CenterFluoroscopic procedure less than one hour ysgoihbi2541-54-49 16:50:00* Test Item Value Reference Range Interpretation [...] Albumin (test code = 1751-7) 4.2 3.5-5.0 [facility] CenterPlasma globulin measurement (mass/volume) 2020-02-09 16:50:00* Test Item Value Reference Range Interpretation Comments Globulin (test code = 50328-9) 4.3 2.3-3.5 [facility] Hospitalerum or plasma albumin/globulin mass srfje2573-47-55 16:50:00* Test Item Value Reference Range Interpretation Comments Albumin/Globulin Ratio (test code = 1759-0) 1.0 0.8-2.0 [facility] Hospitalerum or plasma alkaline phosphatase measurement (enzymatic activity/volume)2020-02-09 16:50:00* Test Item Value Reference Range Interpretation Comments Alkaline Phosphatase (test code = 6768-6) 132 40-150 [facility] Hospitalerum or plasma choriogonadotropin ( test) myvudgpth3034-95-04 16:50:00* Test Item Value Reference Range Interpretation Comments Human Chorionic Gonadotropin, Qual (test code = 2118-8) NEGATIVE NEGATIVE [facility] CenterBacterial urine iuxfajh2378-57-56 16:40:00* Test Item Value Reference Range Interpretation Comments Urine Culture (test code = 630-4) ENTEROCOCCUS FAECALIS [facility] CenterBacterial urine bypoubf2570-64-58 16:40:00* Test Item Value Reference Range Interpretation Comments Urine Culture (test code = 630-4) ENTEROCOCCUS FAECALIS [facility] HospitalTREPTOCOCCUS PCR SBBZTM0252-07-90 17:08:00* Test Item Value Reference Range Interpretation Comments STREPTOCOCCUS DYSGALACTIAE (test code = STREPGC) NEGATIVE FOR G/C N EGATIVE STREPA MOLECULAR (test code = STREPAMOL) NEGATIVE FOR GRP A NEGATIV E - CT ABD PELVIS W/LBCT7399-38-99 16:20:00 Name: PRASANNA DAMIAN [facility] : 1970 Age/S: 49 / F [address] [facility] Unit #: [id number] Loc: [place] [address] Phys: Brandie Sher NP Acct: [id number] Dis Date: Status: REG ER PHONE #: [phone] Exam Date: 07/22/2019 1551 FAX #: [phone] Reason: diffuse abdominal pain EXAMS: CPT CODE: [id number] CT ABD PELVIS W/CONT 62086 EXAM: CT of the abdomen and pelvis [...] fatty infiltration of the liver. Location code: [facility] at 1620 Reported and signed by: Anthony Rice M.D. CC: Brandie Sher NP Technologist:Brina IRBY(R); CRISTO Conroy CTDI: DLP: Trnscb Date/Time: 07/22/2019 (1620) t.GRW Orig Print D/T: S: 07/22/2019 (7077) PAGE 1 Signed Report BASIC METABOLIC [id number] 15:17:00* Test Item Value Reference Range Interpretation [...] CA) 9.3 mg/dL 8.5-10.1 N HEPATIC FUNCTION [id number] 15:17:00* Test Item Value Reference Range Interpretation [...] reference range due to change in reagent. [id number] 15:17:00* Test Item Value Reference Range Interpretation Comments LIPASE (test code = LIP) 191 U/L 73.0-393.0 N HCG SERUM [id number] 15:17:00* Test Item Value Reference Range Interpretation Comments HCG SERUM QUAL (test code = HCGQL) NEGATIVE NEGATIVE This HCGQL test is NOT applicable for MALE patients.Check with nurse about probable order error.If Tumor Marker Test needed, nurse should order test "HCGTU"(Test #550.50895) BWTQSXRZ-[id number] 15:17:00* Test Item Value Reference Range Interpretation Comments TROPONIN-I (test code = TROPI) <0.015 ng/mL 0-0.045 N BASIC METABOLIC AOLVF7509-43-46 14:55:00* Test Item Value Reference Range Interpretation [...] code = CA) mg/dL 8.5-10.1 HEPATIC FUNCTION [id number] 14:55:00* Test Item Value Reference Range Interpretation [...] TOTAL (test code = ALKP) IUnit/L 45-117 [id number] 14:55:00* Test Item Value Reference Range Interpretation Comments LIPASE (test code = LIP) U/L 73.0-393.0 HCG SERUM DPVK9538-80-84 14:55:00* Test Item Value Reference Range Interpretation Comments HCG SERUM QUAL (test code = HCGQL) NEGATIVE NEGATIVE This HCGQL test is NOT applicable for MALE patients.Check with nurse about probable order error.If Tumor Marker Test needed, nurse should order test "HCGTU"(Test #550.17914) EOSPRJJH-[id number] 14:55:00* Test Item Value Reference Range Interpretation Comments TROPONIN-I (test code = TROPI) ng/mL 0-0.045 BASIC METABOLIC YPELT5150-16-00 14:55:00* Test Item Value Reference Range Interpretation [...] code = CA) mg/dL 8.5-10.1 HEPATIC FUNCTION TGKTF5383-32-56 14:55:00* Test Item Value Reference Range Interpretation [...] TOTAL (test code = ALKP) IUnit/L 45-117 FQYSSO2254-60-89 14:55:00* Test Item Value Reference Range Interpretation Comments LIPASE (test code = LIP) U/L 73.0-393.0 HCG SERUM HANJ4654-77-44 14:55:00* Test Item Value Reference Range Interpretation Comments HCG SERUM QUAL (test code = HCGQL) NEGATIVE NEGATIVE This HCGQL test is NOT applicable for MALE patients.Check with nurse about probable order error.If Tumor Marker Test needed, nurse should order test "HCGTU"(Test #550.51991) [id number]-[id number] 14:55:00* Test Item Value Reference Range Interpretation Comments TROPONIN-I (test code = TROPI) ng/mL 0-0.045 MONO [id number] 14:53:00* Test Item Value Reference Range Interpretation Comments MONO SCREEN (test code = MONO) POSITIVE NEGATIVE A URINALYSIS JWAUEFZH7047-36-98 14:52:00* Test Item Value Reference Range Interpretation [...] per HPF NONE Urine Source? Clean CatchURINALYSIS OTVRHBAK8496-71-27 14:51:00* Test Item Value Reference Range Interpretation [...] HPF NONE Urine Source? Clean CatchCBC W/O [id number] 14:49:00* Test Item Value Reference Range Interpretation [...] fL 6.7-11.0 N - XR CHEST 1 [id number] 12:48:00 FAX: Brandie Sher NP [place]: St: PRE Name: PRASANNA KAM [facility] : [birth year] Age/S: 49/F [address] [facility] Unit #: [id number] Loc: [place] [address] Phys: Brandie Sher NP Acct: [id number] Dis Date: Status: PRE ER PHONE #: [phone] Exam Date: 07/22/2019 1243 FAX #: [phone] Reason: Abdominal Pain EXAMS: CPT CODE: [id number] XR CHEST 1 V 03853 REASON FOR EXAM: Abdominal Pain Exam Order Date: 07/22/2019 12:31 PM Ordering M Santi: Brandie Sher NP PROCEDURE: - XR CHEST [...] y. IMPRESSION: No acute cardiopulmonary process. Location: [facility] at 1248 Reported and signed by: Gilbert Orozco MD CC: Brandie Sher NP Technologist: RT Kishan LEGGETT (R) ate/Time/By: 07/22/2019 (5941) : By: [email or web address] Orig Print D/T: S: 06/25 (5853) PAGE [address] ABDOMEN/PELVIS [id number] 16:11:00 [place] [address] Patient Name: PRASANNA DAMIAN MR #: [id number] : 1970 Age/Sex: 49/F Req #: [id number] Adm Physician: Ordered by: EV RECINOS DO Report #: [id number] Location: ER Room/Bed: Procedure: 17 CT/CT ABDOMEN/PELVIS [...] EMMY ROSENBAUM MD Electro nically Signed By: EMYM ROSENBAUM MD on 07/20/19 161 Transcribed By: JUAN on 1615 COPY TO: EV RECINOS DO Urine [id number] 14:23:00* Test Item Value Reference Range Interpretation Comments Urine WBC (test code = 5821-4) 0-5 0-5 [facility] CenterUrine [id number] 14:23:00* Test Item Value Reference Range Interpretation Comments Urine RBC (test code = 29402-1) NONE 0-5 [facility] CenterUrine Olvjokrc5542-25-36 14:23:00* Test Item Value Reference Range Interpretation Comments Urine Bacteria (test code = 70226-2) NONE NONE [facility] CenterUrine Epithelial Vsnms8532-03-57 14:23:00 * Test Item Value Reference Range Interpretation Comments Urine Epithelial Cells (test code = 51728-6) RARE NONE [facility] CenterUrine [id number] 14:05:00* Test Item Value Reference Range Interpretation Comments Urine Color (test code = 5778-6) YELLOW YELLOW [facility] CenterUrine Hthaune2302-44-59 14:05:00* Test Item Value Reference Range Interpretation Comments Urine Clarity (test code = 11838-9) CLEAR CLEAR [facility] CenterUrine Specific Xyanfmi1770-34-70 14:05:00 * Test Item Value Reference Range Interpretation Comments Urine Specific [place] (test code = 5811-5) 1.010 1.010-1.02 5 [facility] CenterUrine [id number] 14:05:00* Test Item Value Reference Range Interpretation Comments Urine pH (test code = 70090-4) 6 5-7 [facility] CenterUrine Leukocyte Giecavfv6442-79-47 14:05:00* Test Item Value Reference Range Interpretation Comments Urine Leukocyte Esterase (test code = 5799-2) NEGATIVE NEGATIVE [facility] Danpcjz6702-19-80 14:05:00* Test Item Value Reference Range Interpretation Comments Urine Nitrite (test code = 47304-0) NEGATIVE NEGATIVE [facility] Rrhheuo8238-08-31 14:05:00* Test Item Value Reference Range Interpretation Comments Urine Protein (test code = 5804-0) NEGATIVE NEGATIVE [facility] CenterUrine Glucose (UA)2019-07-20 14:05:00* Test Item Value Reference Range Interpretation Comments Urine Glucose (UA) (test code = 2349-9) NEGATIVE NEGATIVE [facility] CenterUrine Svsjloe7772-41-47 14:05:00* Test Item Value Reference Range Interpretation Comments Urine Ketones (test code = 40008-9) NEGATIVE NEGATIVE [facility] CenterUrine Hywhjvwjhcsg0570-89-24 14:05:00* Test Item Value Reference Range Interpretation Comments Urine Urobilinogen (test code = 70103-9) 0.2 0.2-1 [facility] CenterUrine Immvutllx0470-34-08 14:05:00* Test Item Value Reference Range Interpretation Comments Urine Bilirubin (test code = 1978-6) NEGATIVE NEGATIVE [facility] CenterUrine Fjbfq0780-28-21 14:05:00* Test Item Value Reference Range Interpretation Comments Urine Blood (test code = 89016-6) NEGATIVE NEGATIVE [facility] CenterUrine Hmnv6472-00-39 14:05:00* Test Item Value Reference Range Interpretation Comments Urine Test (test code = 2106-3) NEGATIVE NEGATIVE [facility] CenterCreatine Kinase [id number] 13:55:00* Test Item Value Reference Range Interpretation Comments Creatine Kinase MB (test code = 55670-6) 0.40 0-5.0 [facility] CenterTroponin [id number] 13:55:00* Test Item Value Reference Range Interpretation Comments Troponin I (test code = FHD6079) < 0.001 0-0.300 [facility] Hospitalodium Ngceg1187-47-11 13:22:00* Test Item Value Reference Range Interpretation Comments Sodium Level (test code = 2951-2) 136 136-145 [facility] CenterPotassium Wpuzx7199-65-44 13:22:00* Test Item Value Reference Range Interpretation Comments Potassium Level (test code = 2823-3) 3.8 3.5-5.1 [facility] CenterChloride Yzuae7611-08-66 13:22:00* Test Item Value Reference Range Interpretation Comments Chloride Level (test code = 2075-0) 100 98-107 [facility] CenterCarbon Dioxide Dwrad4221-91-00 13:22:00* Test Item Value Reference Range Interpretation Comments Carbon Dioxide Level (test code = 2028-9) 27 22-29 [facility] CenterAnion Iyx2794-82-33 13:22:00* Test Item Value Reference Range Interpretation Comments Anion Gap (test code = 50475-7) 12.8 8-16 [facility] CenterBlood Urea Rhfltsqk1608-31-43 13:22:00* Test Item Value Reference Range Interpretation Comments Blood Urea Nitrogen (test code = 3094-0) 7 7-26 [facility] CenterCreatinine2020-01-27 13:22:00* Test Item Value Reference Range Interpretation Comments Creatinine (test code = 2160-0) 0.70 0.57-1.11 [facility] CenterBUN/Creatinine Pgmuv5508-24-89 13:22:00* Test Item Value Reference Range Interpretation Comments BUN/Creatinine Ratio (test code = 3097-3) 10 6-25 [facility] CenterEstimat Glomerular Filtration Rate 2019-07-20 13:22:00* Test Item Value Reference Range Interpretation Comments Estimat Glomerular Filtration Rate (test code = 599612230) > 60 >60 Ranges were taken from the National Kidney Disease Education Program and the [facility] Kidney Foundation literature.Reference ranges:60 or greater: Rycebt52-01 ( for 3 consecutive months): Chronic kidney disease 15 or less: Kidney failureDell Children's Medical CenterGlucose Sogqd0209-28-48 13:22:00* Test Item Value Reference Range Interpretation Comments Glucose Level (test code = SHS2563) 85 74-118 [facility] CenterCalcium Kpijl0202-23-03 13:22:00* Test Item Value Reference Range Interpretation Comments Calcium Level (test code = 84554-8) 9.3 8.4-10.2 [facility] CenterTotal Ylknsvzbk8564-99-12 13:22:00* Test Item Value Reference Range Interpretation Comments Total Bilirubin (test code = 1975-2) 0.5 0.2-1.2 [facility] CenterAspartate Amino Transf (AST/SGOT) 2019-07-20 13:22:00* Test Item Value Reference Range Interpretation Comments Aspartate Amino Transf (AST/SGOT) (test code = Aspartate Amino Transf (AST/SGOT)) 117 5-34 H [facility] CenterAlanine Aminotransferase (ALT/SGPT) 2019-07-20 13:22:00* Test Item Value Reference Range Interpretation Comments Alanine Aminotransferase (ALT/SGPT) (test code = 1742-6) 152 0-55 H [facility] CenterTotal Xcckunn5385-61-05 13:22:00* Test Item Value Reference Range Interpretation Comments Total Protein (test code = 2885-2) 8.0 6.5-8.1 [facility] CenterAlbumin2020-01-27 13:22:00* Test Item Value Reference Range Interpretation Comments Albumin (test code = 1751-7) 4.0 3.5-5.0 [facility] CenterGlobulin2020-01-27 13:22:00* Test Item Value Reference Range Interpretation Comments Globulin (test code = 89122-3) 4.0 2.3-3.5 H [facility] CenterAlbumin/Globulin Mqpuf7514-68-72 13:22:00 * Test Item Value Reference Range Interpretation Comments Albumin/Globulin Ratio (test code = 1759-0) 1.0 0.8-2.0 [facility] CenterAlkaline Wbehrebggvj3336-20-84 13:22:00* Test Item Value Reference Range Interpretation Comments Alkaline Phosphatase (test code = 6768-6) 133 40-150 [facility] CenterCreatine Wcucsn0183-20-08 13:22:00* Test Item Value Reference Range Interpretation Comments Creatine Kinase (test code = 2157-6) 37 29-168 [facility] CenterLipase2020-01-27 13:22:00* Test Item Value Reference Range Interpretation Comments Lipase (test code = 3040-3) 26 8-78 [facility] CenterUrine human chorionic gonadotropin (hCG) momnjixmp9662-54-56 13:15:00* Test Item Value Reference Range Interpretation Comments Urine Test (test code = 2106-3) NEGATIVE NEGATIVE [facility] CenterInfluenza Virus Types A,B Antigen 2019-07-20 13:03:00* Test Item Value Reference Range Interpretation Comments Influenza Virus Types A,B Antigen (test code = 96827-2) NEGATIVE NEGATIVE [facility] CenterWhite Blood Tffuo0989-18-11 12:59:00* Test Item Value Reference Range Interpretation Comments White Blood Count (test code = 6690-2) 3.09 4.8-10.8 L [facility] CenterRed Blood Jdste6060-13-24 12:59:00* Test Item Value Reference Range Interpretation Comments Red Blood Count (test code = 789-8) 4.17 3.6-5.1 [facility] CenterHemoglobin2020-01-27 12:59:00* Test Item Value Reference Range Interpretation Comments Hemoglobin (test code = 49815-7) 11.8 12.0-16.0 L [facility] CenterHematocrit2020-01-27 12:59:00* Test Item Value Reference Range Interpretation Comments Hematocrit (test code = 4544-3) 35.9 34.2-44.1 [facility] CenterMean Corpuscular Wtehij9151-17-19 12:59:00* Test Item Value Reference Range Interpretation Comments Mean Corpuscular Volume (test code = 787-2) 86.1 81-99 [facility] CenterMean Corpuscular Xzmdmjlurs7750-44-75 12:59:00* Test Item Value Reference Range Interpretation Comments Mean Corpuscular Hemoglobin (test code = 785-6) 28.3 28-32 [facility] CenterMean Corpuscular Hemoglobin Concent 2019-07-20 12:59:00* Test Item Value Reference Range Interpretation Comments Mean Corpuscular Hemoglobin Concent (test code = 786-4) 32.9 31-35 [facility] CenterRed Cell Distribution Dyxil2262-92-39 12:59:00* Test Item Value Reference Range Interpretation Comments Red Cell Distribution Width (test code = 94778-7) 12.5 11.7 -14.4 [facility] CenterPlatelet Coeei2147-30-23 12:59:00* Test Item Value Reference Range Interpretation Comments Platelet Count (test code = 777-3) 173 140-360 [facility] CenterNeutrophils (%) (Auto)2019-07-20 12:59:00 * Test Item Value Reference Range Interpretation Comments Neutrophils (%) (Auto) (test code = 11220-5) 70.3 38.7-80.0 [facility] CenterLymphocytes (%) (Auto)2019-07-20 12:59:00 * Test Item Value Reference Range Interpretation Comments Lymphocytes (%) (Auto) (test code = 736-9) 14.9 18.0-39.1 L [facility] CenterMonocytes (%) (Auto)2019-07-20 12:59:00* Test Item Value Reference Range Interpretation Comments Monocytes (%) (Auto) (test code = 5905-5) 10.0 4.4-11.3 [facility] CenterEosinophils (%) (Auto)2019-07-20 12:59:00 * Test Item Value Reference Range Interpretation Comments Eosinophils (%) (Auto) (test code = 713-8) 4.2 0.0-6.0 [facility] CenterBasophils (%) (Auto)2019-07-20 12:59:00* Test Item Value Reference Range Interpretation Comments Basophils (%) (Auto) (test code = 706-2) 0.3 0.0-1.0 [facility] CenterIM GRANULOCYTES %2019-07-20 12:59:00* Test Item Value Reference Range Interpretation Comments IM GRANULOCYTES % (test code = IM GRANULOCYTES %) 0.3 0.0- 1.0 [facility] CenterNeutrophils # (Auto)2019-07-20 12:59:00* Test Item Value Reference Range Interpretation Comments Neutrophils # (Auto) (test code = 751-8) 2.2 2.1-6.9 [facility] CenterLymphocytes # (Auto)2019-07-20 12:59:00* Test Item Value Reference Range Interpretation Comments Lymphocytes # (Auto) (test code = 82203-2) 0.5 1.0-3.2 L [facility] CenterMonocytes # (Auto)2019-07-20 12:59:00* Test Item Value Reference Range Interpretation Comments Monocytes # (Auto) (test code = 742-7) 0.3 0.2-0.8 [facility] CenterEosinophils # (Auto)2019-07-20 12:59:00* Test Item Value Reference Range Interpretation Comments Eosinophils # (Auto) (test code = 711-2) 0.1 0.0-0.4 [facility] CenterBasophils # (Auto)2019-07-20 12:59:00* Test Item Value Reference Range Interpretation Comments Basophils # (Auto) (test code = 704-7) 0.0 0.0-0.1 [facility] CenterAbsolute Immature Granulocyte (auto 2019-07-20 12:59:00* Test Item Value Reference Range Interpretation Comments Absolute Immature Granulocyte (auto (angela t code = Absolute Immature Granulocyte (auto) 0.01 0-0.1 [facility] CenterUrine human chorionic gonadotropin (hCG) ueyrbrory8809-92-06 12:15:00* Test Item Value Reference Range Interpretation Comments Urine Test (test code = 2106-3) NEGATIVE NEGATIVE [facility] CenterUrine human chorionic gonadotropin (hCG) ixxgzkxzv1016-99-14 12:15:00* Test Item Value Reference Range Interpretation Comments Urine Test (test code = 2106-3) NEGATIVE NEGATIVE [facility] CenterInfluenza virus A and B antigen identification by bgvmpgxpyzpyewlyjw8025-94-41 11:53:00* Test Item Value Reference Range Interpretation Comments Influenza Virus Types A,B Antigen (test code = 21676-6) NEGATIVE NEGATIVE [facility] Hospitalerum or plasma creatine kinase measurement (enzymatic activity/volume)2019-07-20 11:36:00* Test Item Value Reference Range Interpretation Comments Creatine Kinase (test code = 2157-6) 37 29-168 [facility] Hospitalerum or plasma creatine kinase MB measurement (mass/volume)2019-07-20 11:36:00* Test Item Value Reference Range Interpretation Comments Creatine Kinase MB (test code = 22078-2) 0.40 0-5.0 [facility] CenterTroponin I measurement by highly sensitive enzyme khndedftqog2548-76-29 11:36:00* Test Item Value Reference Range Interpretation Comments Troponin I (test code = 39694-6) < 0.001 0-0.300 [facility] Hospitalerum or plasma lipase measurement (enzymatic activity/volume)2019-07-20 11:36:00* Test Item Value Reference Range Interpretation Comments Lipase (test code = 3040-3) 26 8-78 [facility] Hospitalerum or plasma creatine kinase measurement (enzymatic activity/volume)2019-07-20 11:36:00* Test Item Value Reference Range Interpretation Comments Creatine Kinase (test code = 2157-6) 37 29-168 [facility] Hospitalerum or plasma creatine kinase MB measurement (mass/volume)2019-07-20 11:36:00* Test Item Value Reference Range Interpretation Comments Creatine Kinase MB (test code = 65831-9) 0.40 0-5.0 [facility] by highly sensitive enzyme glkewmtbjgl6279-03-76 11:36:00* Test Item Value Reference Range Interpretation Comments Troponin I (test code = 84473-3) < 0.001 0-0.300 [facility] (enzymatic activity/volume)2019-07-20 11:36:00* Test Item Value Reference Range Interpretation Comments Lipase (test code = 3040-3) 26 8-78 [facility] CenterInfluenza virus A and B antigen identification by nqqdppvmtpqtrdnbpl9153-05-29 10:53:00* Test Item Value Reference Range Interpretation Comments Influenza Virus Types A,B Antigen (test code = 97679-2) NEGATIVE NEGATIVE [facility] CenterInflu[facility] virus A and B antigen identification by eoqlrukxxoyhsfjbdz4940-05-12 10:53:00* Test Item Value Reference Range Interpretation Comments Influenza Virus Types A,B Antigen (test code = 29118-4) NEGATIVE NEGATIVE [facility] CenterB-TYPE NATRIURETIC [id number] 17:17:00* Test Item Value Reference Range Interpretation Comments B-TYPE NATRIURETIC PEPTIDE (test code = BNP) 86.25 pgram/mL 0-100 N BASIC METABOLIC [id number] 17:09:00* Test Item Value Reference Range Interpretation [...] CA) 9.4 mg/dL 8.5-10.1 N HCG SERUM [id number] 17:09:00* Test Item Value Reference Range Interpretation Comments HCG SERUM QUAL (test code = HCGQL) NEGATIVE NEGATIVE This HCGQL test is NOT applicable for MALE patients.Check with nurse about probable order error.If Tumor Marker Test needed, nurse should order test "HCGTU"(Test #550.56852) [id number] 17:09:00* Test Item Value Reference Range Interpretation Comments TROPONIN-I (test code = TROPI) <0.015 ng/mL 0-0.045 N HEPATIC FUNCTION [id number] 17:05:00* Test Item Value Reference Range Interpretation [...] reference range due to change in reagent. [id number] 17:05:00* Test Item Value Reference Range Interpretation Comments LIPASE (test code = LIP) 79 U/L 73.0-393.0 N [id number] 17:00:00* Test Item Value Reference Range Interpretation [...] skin infections -Liver cirrhosis - BASIC METABOLIC [id number] 16:57:00* Test Item Value Reference Range Interpretation [...] code = CA) mg/dL 8.5-10.1 HCG SERUM [id number] 16:57:00* Test Item Value Reference Range Interpretation Comments HCG SERUM QUAL (test code = HCGQL) NEGATIVE NEGATIVE This HCGQL test is NOT applicable for MALE patients.Check with nurse about probable order error.If Tumor Marker Test needed, nurse should order test "HCGTU"(Test #550.78829) [id number] 16:57:00* Test Item Value Reference Range Interpretation Comments TROPONIN-I (test code = TROPI) ng/mL 0-0.045 BASIC METABOLIC [id number] 16:57:00* Test Item Value Reference Range Interpretation [...] code = CA) mg/dL 8.5-10.1 HCG SERUM [id number] 16:57:00* Test Item Value Reference Range Interpretation Comments HCG SERUM QUAL (test code = HCGQL) NEGATIVE NEGATIVE This HCGQL test is NOT applicable for MALE patients.Check with nurse about probable order error.If Tumor Marker Test needed, nurse should order test "HCGTU"(Test #550.84329) [id number] 16:57:00* Test Item Value Reference Range Interpretation Comments TROPONIN-I (test code = TROPI) ng/mL 0-0.045 CBC W/O [id number] 16:49:00* Test Item Value Reference Range Interpretation [...] MPV) 9.7 fL 6.7-11.0 N CBC W/O [id number] 16:48:00* Test Item Value Reference Range Interpretation [...] MPV) fL 6.7-11.0 - XR CHEST 1 [id number] 16:32:00 FAX: Aftab Jacobo MD [phone] [place]: B St: DEP Name: PRASANNA KAM [facility] : [birth year] Age/S: 49/F [address] Unit #: [id number] Loc: [place] [address] Phys: Aftab Jacobo MD Acct: [id number] Dis Date: Status: DEP ER PHONE #: [phone] Exam Date: 05/27/2019 1557 FAX #: [phone] Reason: Shortness of Breath EXAMS: CPT CODE: [id number] XR CHEST 1 V 38768 HISTORY: Shortness of breath. COMPARISON: None available. Location: [facility]. No acute infiltrates, effusion or congestion is noted. The cardiac and mediastinal silhouette are within normal limits. IMPRESSI ON: No acute infiltrates, effusion or congestion. at 4676 Reported and signed by: Hero Lay M.D. CC: Aftab Jacobo MD Technologist: Georgina Milton(Rodolfo) Trnscrd Date/Time/By: 05/27/2019 (4341) : By: [email or web address] Orig Print D/T: S: 05/27/2019 (1074) PAGE 1 Signed Report - XR CHEST 1 [id number] 16:32:00 FAX: Aftab Jacobo MD [phone] [place]: B St: REG Name: PRASANNA KAM [facility] : [birth year] Age/S: 49/F [address] Unit #: [id number] Loc: [place] [address] Phys: Aftab Jacobo MD Acct: [id number] Dis Date: Status: REG ER PHONE #: [phone] Exam Date: 05/27/2019 1557 FAX #: [phone] Reason: Shortness of Breath EXAMS: CPT CODE: [id number] XR CHEST 1 V 08039 HISTORY: Shortness of breath. COMPARISON: None available. Location: [facility]. No acute infiltrates, effusion or congestion is noted. The cardiac and mediastinal silhouette are within normal limits. IMPRESSI ON: No acute infiltrates, effusion or congestion. at 1632 Reported and signed by: Hero Lay M.D. CC: Aftab Jacobo MD Technologist: Georgina Milton(R) Trnscrd Date/Time/By: 05/27/2019 (463) : By: [email or web address] Orig Print D/T: S: 05/27/2019 (5476) PAGE 1 Signed Report URINALYSIS [id number] 16:31:00* Test Item Value Reference Range Interpretation [...] #/HPF NONE A Urine Source? Clean CatchURINALYSIS [id number] 16:25:00* Test Item Value Reference Range Interpretation [...] per HPF NONE Urine Source? Clean CatchURINALYSIS [id number] 01:12:00* Test Item Value Reference Range Interpretation [...] HPF NONE A Urine Source? Clean CatchURINALYSIS [id number] 00:54:00* Test Item Value Reference Range Interpretation [...] Source? Clean Catch- CT ABD PELVIS W/O [id number] 00:21:00 Name: PRASANNA DAMIAN [facility] : 1970 Age/S: 49 / F [address] Unit #: [id number] Loc: [place] [address] Phys: Maame Sher [employer] Acct: [id number] Di s Date: Status: REG ER PHONE #: Exam Date: 05/27/20190 FAX #: Reason: Right flank pain, uti, and nausea and vomiting EXAMS: CPT CODE: [id number] CT ABD PELVIS W/O CONT 10807 EXAM: - CT ABD PELVIS W/O CONT [...] Signed Report (CONTINUED) Name : PRASANNA DAMIAN [facility] : [birth year] Age/S: 49 / F [address] Unit #: [id number] Loc: [place] [address] Phys: Brandie Sher [employer]ER Acct: [id number] Dis Date: Status: REG ER PHONE #: [phone] Exam Date: 05/27/2019 0010 FAX #: [phone] Reason: Right flank pain, uti, and nausea and vomiting EXAMS: CPT CODE: [id number] CT ABD PELVIS W/O CONT 48869 <Continued> Bones/Soft Tissues: 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 There is no acute osseous abnormality. No ventral hernias. Peritoneum/Other: No extraluminal air. No extraluminal fluid. IMPRESSION: 1. No acute abnormality. 2. Colonic diverticulosis is present without CT evidence of diverticulitis. at 0021 Reported and signed by: Marcelo Denny M.D. CC: Brandie Sher NP Technologist:ABDULLAHI MADDOX CTDI: DLP: Trnscb Date/Time: 05/27/2019 (002) Natalia.[email or web address] Orig Print D/T: S: 05/27/2019 (0025) PAGE 2 Signed Report BASIC METABOLIC [id number] 00:11:00* Test Item Value Reference Range Interpretation [...] CA) 8.9 mg/dL 8.5-10.1 N HEPATIC FUNCTION [id number] 00:11:00* Test Item Value Reference Range Interpretation [...] reference range due to change in reagent. [id number] 00:11:00* Test Item Value Reference Range Interpretation Comments LIPASE (test code = LIP) 120 U/L 73.0-393.0 N HCG SERUM [id number] 00:11:00* Test Item Value Reference Range Interpretation Comments HCG SERUM QUAL (test code = HCGQL) NEGATIVE NEGATIVE This HCGQL test is NOT applicable for MALE patients.Check with nurse about probable order error.If Tumor Marker Test needed, nurse should order test "HCGTU"(Test #550.69264) [id number] 00:11:00* Test Item Value Reference Range Interpretation Comments TROPONIN-I (test code = TROPI) <0.015 ng/mL 0-0.045 N BASIC METABOLIC [id number] 00:07:00* Test Item Value Reference Range Interpretation [...] code = CA) mg/dL 8.5-10.1 HEPATIC FUNCTION [id number] 00:07:00* Test Item Value Reference Range Interpretation [...] TOTAL (test code = ALKP) IUnit/L 45-117 [id number] 00:07:00* Test Item Value Reference Range Interpretation Comments LIPASE (test code = LIP) U/L 73.0-393.0 HCG SERUM [id number] 00:07:00* Test Item Value Reference Range Interpretation Comments HCG SERUM QUAL (test code = HCGQL) NEGATIVE NEGATIVE This HCGQL test is NOT applicable for MALE patients.Check with nurse about probable order error.If Tumor Marker Test needed, nurse should order test "HCGTU"(Test #550.63257) [id number] 00:07:00* Test Item Value Reference Range Interpretation Comments TROPONIN-I (test code = TROPI) ng/mL 0-0.045 BASIC METABOLIC [id number] 00:06:00* Test Item Value Reference Range Interpretation [...] code = CA) mg/dL 8.5-10.1 HEPATIC FUNCTION [id number] 00:06:00* Test Item Value Reference Range Interpretation [...] TOTAL (test code = ALKP) IUnit/L 45-117 [id number] 00:06:00* Test Item Value Reference Range Interpretation Comments LIPASE (test code = LIP) U/L 73.0-393.0 HCG SERUM [id number] 00:06:00* Test Item Value Reference Range Interpretation Comments HCG SERUM QUAL (test code = HCGQL) NEGATIVE [id number] 00:06:00* Test Item Value Reference Range Interpretation Comments TROPONIN-I (test code = TROPI) ng/mL 0-0.045 CBC W/O [id number] 23:44:00* Test Item Value Reference Range Interpretation [...] MPV) 9.6 fL 6.7-11.0 N CBC W/O [id number] 23:43:00* Test Item Value Reference Range Interpretation [...] code = MPV) fL 6.7-11.0 NECK SOFT [id number] 23:43:00 [place] [address] Patient Name: PRASANNA DAMIAN MR #: [id number] : 1970 Age/Sex: 49/F Req #: [id number] Adm Physician: Ordered by: EV RECINOS DO Report #: [id number] Location: ER Room/Bed: Procedure: 36 DX/NECK SOFT TISSUE Exam Date: 04/25/19 Exam Time : 5 REPORT STATUS: Signed X-R AY SOFT TISSUE [...] P M Dictated By: WILL OSORIO DO 2344 Transcribed By: JUAN on 04/25/19 2344 COPY T O: EV RECINOS DO CHEST 2 [id number] 23:42:00 [place] [address] Patient Name: PRASANNA DAMIAN MR #: [id number] : 1970 Age/Sex: 49/F Req #: [id number] Adm Physician: Ordered by: EV RECINOS DO Report #: [id number] Location: ER Room/Bed: Procedure: 1102-00 35 DX/CHEST 2 VIEWS Exam Date: 04/25/19 [...] 11:43 PM Dictated By: WILL OSORIO DO 2343 Transcribed By: JUAN on 04/25/19 2343 COPY TO: EV RECINOS DO - CT ABD PELVIS W/O [id number] 07:23:00 Name: PRASANNA DAMIAN [facility] : 1970 Age/S: 49 / F [address] [facility] Unit #: [id number] Loc: [place] [address] Phys: Kaylah Mcduffie DO Acct: [id number] Di s Date: Status: REG ER PHONE #: Exam Date: 04/13/2019623 FAX #: Reason: flank pain, r/o kidney stone EXAMS: CPT CODE: [id number] CT ABD PELVIS W/O CONT 86061 HISTORY: flank pain, r/o kidney stone TECHNIQUE: [...] D.O. PAGE 1 Signed Report (CONTINUED) Name: RICKIEPRASANNA [facility] : 1970 Age/S: 49 / F [address] [facility] Unit #: [id number] Loc: [place] [address] Phys: Tracy Mcduffie DO Acct: [id number] Dis Date: Status: REG ER PHONE #: [phone] Exam Date: 04/13 FAX #: [phone] Reason: flank pain, r/o kidney stone EXAMS: CPT CODE: [id number] CT ABD PELVIS W/O CONT 74 176 <Continued> CC: Tracy Mcduffie DO Technologist:Marissa RecioRT(R),CT CTDI: DLP: Trnscb Date/Time: 04/13/2019 (722) [email or web address] Orig Print D/T: S: 04/13/2019 (725) PAGE 2 Signed Report BASIC METABOLIC [id number] 06:50:00* Test Item Value Reference Range Interpretation [...] CA) 9.4 mg/dL 8.5-10.1 N HEPATIC FUNCTION [id number] 06:50:00* Test Item Value Reference Range Interpretation [...] reference range due to change in reagent. [id number] 06:50:00* Test Item Value Reference Range Interpretation Comments LIPASE (test code = LIP) 96 U/L 73.0-393.0 N HCG SERUM [id number] 06:50:00* Test Item Value Reference Range Interpretation Comments HCG SERUM QUAL (test code = HCGQL) NEGATIVE NEGATIVE This HCGQL test is NOT applicable for MALE patients.Check with nurse about probable order error.If Tumor Marker Test needed, nurse should order test "HCGTU"(Test #550.17506) CBC W/O [id number] 06:44:00* Test Item Value Reference Range Interpretation [...] MPV) 9.9 fL 6.7-11.0 N CBC W/O [id number] 06:40:00* Test Item Value Reference Range Interpretation [...] code = MPV) fL 6.7-11.0 BASIC METABOLIC [id number] 06:37:00* Test Item Value Reference Range Interpretation [...] code = CA) mg/dL 8.5-10.1 HEPATIC FUNCTION [id number] 06:37:00* Test Item Value Reference Range Interpretation [...] TOTAL (test code = ALKP) IUnit/L 45-117 [id number] 06:37:00* Test Item Value Reference Range Interpretation Comments LIPASE (test code = LIP) U/L 73.0-393.0 HCG SERUM [id number] 06:37:00* Test Item Value Reference Range Interpretation Comments HCG SERUM QUAL (test code = HCGQL) NEGATIVE NEGATIVE This HCGQL test is NOT applicable for MALE patients.Check with nurse about probable order error.If Tumor Marker Test needed, nurse should order test "HCGTU"(Test #550.10837) BASIC METABOLIC [id number] 06:35:00* Test Item Value Reference Range Interpretation [...] code = CA) mg/dL 8.5-10.1 HEPATIC FUNCTION [id number] 06:35:00* Test Item Value Reference Range Interpretation [...] TOTAL (test code = ALKP) IUnit/L 45-117 [id number] 06:35:00* Test Item Value Reference Range Interpretation Comments LIPASE (test code = LIP) U/L 73.0-393.0 HCG SERUM [id number] 06:35:00* Test Item Value Reference Range Interpretation Comments HCG SERUM QUAL (test code = HCGQL) NEGATIVE URINALYSIS [id number] 06:17:00* Test Item Value Reference Range Interpretation [...] #/HPF NONE A Urine Source? Clean CatchSACRUM [id number] 16:31:00 [facility] [address] [place] [address] Patient Name: PRASANNA DAMIAN MR #: [id number] : 1970 Age/Sex: 48/F Req #: [id number] Adm Physician: Ordered by: KITTY RECIO MD Report #: [id number] Location: [facility] Room/Bed: Procedure: DX/SACRUM X-RAY Exam Date: 01/09/19 Exam Time: 154 REPORT STATUS: Signed Sacrum, 2 views. History: [...] KITTY RECIO MD SP LUMBAR, COMPLETE MIN [id number] 16:27:00 [place] [address] Patient Name: PRASANNA DAMIAN MR #: [id number] : 1970 Age/Sex: 48/F Req #: [id number] Adm Physician: Ordered by: KITTY RECIO MD Report #: [id number] Location: [facility] Room/Bed: Procedure: 2730-5498 DX/SP LUMBAR, COMPLETE MIN 4VW Exam Date: [...] TO: KITTY RECIO MD CT ABD/PEL WO [id number] 22:35:00 [place] [address] Patient Name: PRASANNA DAMIAN MR #: [id number] : 1970 Age/Sex: 48/F Req #: [id number] Adm Physician: Ordered by: YOBANI OWENS MD Report #: [id number] Location: [facility] Room/Bed: Procedure: 0319-0 015 HOPD/CT ABD/PEL [...] YOBANI OWENS MD - CT L-SPINE W/O [id number] 08:26:00 Name: PRASANNA DAMIAN [facility] : 1970 Age/S: 47 / F [address] [facility] Unit #: [id number] Loc: [place] [address] Phys: Donavan Lee [employer] Acct: [id number] Dis Date: Status: UNK PHONE #: Exam Date: 12/15/2017 0752 FAX #: Reason: back pain possible avulsion fracture on xray EXAMS: CPT CODE: [id number] CT L-SPINE W/O CONTRAST 61208 HISTORY: Low back pain and possible avulsion [...] CC: Olya Tan MD; Sukumar Lee NP Technologist:RT Griffin(R),CT; [place] CTDI: DLP: Trnscb Date/Time: 12/15/2017 (0826) t.[email or web address].TH4 Orig Print D/T: S: 12/15/2017 (7937) PAGE 1 Signed Report - XR L-SPINE 2/3 [id number] 06:43:00 FAX: Ya Arriaga NP [place]: St: UNK Name: PRASANNA KAM [facility] : [birth year] Age/S: 47/F [place] Unit #: [id number] Loc: [place] [address] Phys: Ya Arriaga NP Acct: [id number] Dis Date: Status: UNK PHONE #: [phone] Exam Date: 12/15/2017 06 FAX #: [phone] Reason: pain after lifting EXAMS: CPT CODE: [id number] XR L-SPINE 2/3 VIEWS 36205 HISTORY: Pain Location: C3 FINDINGS: 3 images [...] MD CC: Ya Arriaga NP Technologist: RT SOLANGE(R) Trnscrd Date/Time/By: 12/15/2017 (0643) : By: [email or web address] Orig Print D/T: S: 12/15/2017 (5438) PAGE 1 Signed Report
== END 2020-05-16 11:30 | disposition home or self-care (01) ==
LOC: ER 10:15
DX: R21 Rash and other nonspecific skin eruption (principal); B20 Human immunodeficiency virus [HIV] disease; F43.10 Post-traumatic stress disorder, unspecified; Z87.442 Personal history of urinary calculi; Z20.828 Contact with and (suspected) exposure to other viral communicable diseases
CPT/HCPCS: 99282; J7512; U0002

== ENCOUNTER → 2020-07-08 | Emergency (ER) | payer OTHER, MEDICARE ==
[~2020-07-08] VITALS: Ht 154.9 cm; Wt 60.8 kg
[~2020-07-08] MED LIST changes: +DICYCLOMINE HCL20 MG PO; +HYDROXYZINE HCL25 MG PO; +KETOROLAC TROMETHAMINE 30 MG/ML VIAL IV STA; +ONDANSETRON HCL INJ 2MG/ML 2ML 2 MG/ML VIAL IV STA; +PREDNISONE20 MG PO; +SODIUM CHLORIDE 0.9% 1000ML 1,000 ML IV STA; +ULTRAM50 MG PO; +ZOFRAN4 MG SL
[2020-07-08 09:36] LABS: BASOPHILS % 0.4 % (0.0-1.0); EOSINOPHILS # (AUTO) 0.1 (0.0-0.4); EOSINOPHILS % 3.6 % (0.0-6.0); HEMOGLOBIN 10.9 g/dL (12.0-16.0); LYMPHOCYTES # (AUTO) 0.6 (1.0-3.2); LYMPHOCYTES % 25.1 % (18.0-39.1); MEAN CORPUSCULAR HEMOGLOBIN 28.2 pg (28-32); MEAN CORPUSCULAR VOLUME 85.3 fL (81-99); MONOCYTES # (AUTO) 0.2 (0.2-0.8); NEUTROPHILS # (AUTO) 1.6 (2.1-6.9); NEUTROPHILS % 62.5 % (38.7-80.0); PLATELET COUNT 203 x10e3/uL (140-360); RED BLOOD COUNT 3.87 x10e6/uL (3.6-5.1); RED CELL DISTRIBUTION WIDTH 14.6 % (11.7-14.4)
[2020-07-08 09:45] LABS: COLOR,URINE YELLOW (YELLOW)
[2020-07-08 09:46] LABS: CLARITY,URINE CLEAR (CLEAR); KETONES,URINE NEGATIVE (NEGATIVE); LEUKOCYTE ESTERASE ,URINE NEGATIVE (NEGATIVE); NITRITE,URINE NEGATIVE (NEGATIVE); PROTEIN,URINE DIPSTICK NEGATIVE (NEGATIVE); URINE UROBILINOGEN 0.2 mg/dL (0.2 - 1)
[2020-07-08 09:50] LABS: BACTERIA,URINE RARE /HPF; EPITHELIAL CELLS,URINE FEW /LPF; RBC,URINE 0-5 /HPF (0-5); WBC,URINE (MAN) 0-5 /HPF (0-5)
[2020-07-08 09:53] LABS: ALANINE AMINOTRANSFERASE 61 IU/L (0-55); ALBUMIN 4.4 g/dL (3.5-5.0); ALBUMIN/GLOBULIN RATIO 1.1 (0.8-2.0); ALKALINE PHOSPHATASE 119 IU/L (40-150); ANION GAP 12.1 mmol/L (8-16); BLOOD UREA NITROGEN 10 mg/dL (7-26); BUN/CREATININE RATIO 14 (6-25); CALCIUM 9.4 mg/dL (8.4-10.2); CARBON DIOXIDE 26 mmol/L (22-29); CHLORIDE 106 mmol/L (98-107); CREATININE, SERUM 0.72 mg/dL (0.57-1.11); EST GLOMERULAR FILTRATION RATE > 60 ML/MIN (60-); GLUCOSE 105 mg/dL (74-118); POTASSIUM 4.1 mmol/L (3.5-5.1); SODIUM 140 mmol/L (136-145)
== END | disposition home or self-care (01) ==
LOC: ER 09:15
DX: M54.5 Low back pain (principal); R30.0 Dysuria; R14.0 Abdominal distension (gaseous); B20 Human immunodeficiency virus [HIV] disease; F43.10 Post-traumatic stress disorder, unspecified; Z87.442 Personal history of urinary calculi
CPT/HCPCS: 36415; 74176; 80053; 81001; 85025; 87086; 99284; J1885; J2405; J7030

== ENCOUNTER 2020-09-12 10:29 | Emergency (ER) | payer MEDICARE ==
[~2020-09-12] VITALS: Ht 154.9 cm; Wt 60.8 kg
[~2020-09-12 10:29] MED LIST changes: -KETOROLAC TROMETHAMINE 30 MG/ML VIAL IV STA; -ONDANSETRON HCL INJ 2MG/ML 2ML 2 MG/ML VIAL IV STA; -SODIUM CHLORIDE 0.9% 1000ML 1,000 ML IV STA
[2020-09-12] MEDS ORDERED: SODIUM CHLORIDE 0.9% 1000ML 1,000 ML IV STA (11:04)
[2020-09-12] MEDS ORDERED: ONDANSETRON HCL INJ 2MG/ML 2ML 2 MG/ML VIAL IV STA (11:04)
[2020-09-12 11:14] LABS: CLARITY,URINE CLEAR (CLEAR); COLOR,URINE YELLOW (YELLOW); KETONES,URINE NEGATIVE (NEGATIVE); LEUKOCYTE ESTERASE ,URINE SMALL (NEGATIVE); NITRITE,URINE NEGATIVE (NEGATIVE); PROTEIN,URINE DIPSTICK NEGATIVE (NEGATIVE); URINE UROBILINOGEN 0.2 mg/dL (0.2 - 1)
[2020-09-12 11:15] LABS: BASOPHILS % 0.4 % (0.0-1.0); EOSINOPHILS % 1.5 % (0.0-6.0); HEMATOCRIT 32.3 % (34.2-44.1); HEMOGLOBIN 10.8 g/dL (12.0-16.0); LYMPHOCYTES # (AUTO) 0.3 (1.0-3.2); LYMPHOCYTES % 10.3 % (18.0-39.1); MEAN CORPUSCULAR HEMOGLOBIN 28.5 pg (28-32); MEAN CORPUSCULAR HGB CONC 33.4 g/dL (31-35); MEAN CORPUSCULAR VOLUME 85.2 fL (81-99); MONOCYTES # (AUTO) 0.2 (0.2-0.8); MONOCYTES % 8.1 % (4.4-11.3); NEUTROPHILS # (AUTO) 2.1 (2.1-6.9); PLATELET COUNT 161 x10e3/uL (140-360); RED BLOOD COUNT 3.79 x10e6/uL (3.6-5.1); RED CELL DISTRIBUTION WIDTH 13.8 % (11.7-14.4)
[2020-09-12 11:20] LABS: BACTERIA,URINE RARE /HPF; EPITHELIAL CELLS,URINE FEW /LPF; RBC,URINE 0-5 /HPF (0-5)
[2020-09-12 11:23] LABS: INR 0.85; PROTHROMBIN TIME 12.1 seconds (11.9-14.5)
[2020-09-12 11:24] LABS: PARTIAL THROMBOPLASTIN TIME 29.5 seconds (23.8-35.5)
[2020-09-12] MEDS ORDERED: PANTOPRAZOLE 40 MG 10ML VIAL IV ONE (11:30)
[2020-09-12 11:41] LABS: ALANINE AMINOTRANSFERASE 95 IU/L (0-55); ALBUMIN 3.9 g/dL (3.5-5.0); ALBUMIN/GLOBULIN RATIO 0.9 (0.8-2.0); ALKALINE PHOSPHATASE 139 IU/L (40-150); ANION GAP 12.6 mmol/L (8-16); BLOOD UREA NITROGEN 10 mg/dL (7-26); BUN/CREATININE RATIO 14 (6-25); CALCIUM 8.6 mg/dL (8.4-10.2); CARBON DIOXIDE 25 mmol/L (22-29); CHLORIDE 104 mmol/L (98-107); CREATINE KINASE 42 IU/L (29-168); CREATININE, SERUM 0.71 mg/dL (0.57-1.11); EST GLOMERULAR FILTRATION RATE > 60 ML/MIN (60-); GLUCOSE 100 mg/dL (74-118); LIPASE 24 U/L (8-78); MAGNESIUM 1.6 MG/DL (1.3-2.1); POTASSIUM 3.6 mmol/L (3.5-5.1); SODIUM 138 mmol/L (136-145)
[2020-09-12] MEDS ORDERED: DICYCLOMINE HCL 20 MG/2 ML VIAL IM ONE (12:15)
[2020-09-12] MEDS ORDERED: SODIUM CHLORIDE 0.9% 50ML 50 ML ONE (13:38)
[2020-09-12] MEDS ORDERED: IOPAMIDOL 370 MG/ML 200 ML INFUS..BTL INJ ONE (13:39)
== END 2020-09-12 15:03 | disposition home or self-care (01) ==
LOC: ER 10:51
DX: R10.11 Right upper quadrant pain (principal); R11.2 Nausea with vomiting, unspecified; N39.0 Urinary tract infection, site not specified; F43.10 Post-traumatic stress disorder, unspecified; B20 Human immunodeficiency virus [HIV] disease; Z87.442 Personal history of urinary calculi
CPT/HCPCS: 36415; 71045; 74177; 80053; 81001; 82550; 82553; 83690; 83735; 83880; 84484; 85025; 85610; 85730; 87086; 93005; 99284; C9113; J0500; J2405; J7030; Q9967

== ENCOUNTER → 2020-09-21 | Outpatient (CLI) | payer MEDICARE | LOC: MAMMO 10:25 | PROVIDERS: ATTEND Internal Medicine | DX: Z12.31 Encounter for screening mammogram for malignant neoplasm of breast (principal); Z13.820 Encounter for screening for osteoporosis | CPT/HCPCS: 77067; 77080 ==

== ENCOUNTER 2020-10-17 08:21 | Emergency (ER) | payer MEDICARE ==
[~2020-10-17] VITALS: Ht 154.9 cm; Wt 60.8 kg
[2020-10-17] MEDS ORDERED: SODIUM CHLORIDE 0.9% 1000ML 1,000 ML IV STA (09:01)
[2020-10-17] MEDS ORDERED: PANTOPRAZOLE 40 MG 10ML VIAL IV STA (09:01)
[2020-10-17] MEDS ORDERED: ONDANSETRON HCL INJ 2MG/ML 2ML 2 MG/ML VIAL IV STA (09:01)
[2020-10-17] MEDS ORDERED: MAGNESIUM/ALUMINUM/SIMETHICONE 30 ML UDC PO ONE (09:15)
[2020-10-17] MEDS ORDERED: FLUCONAZOLE 200 MG/100 ML 100 ML IV ONE (09:15)
[2020-10-17] MEDS ORDERED: LIDOCAINE VISC 2% SOLN 15 ML UDC PO ONE (09:15)
[2020-10-17] MEDS ORDERED: BELLADONNA ALK/PHENOBARBITAL 5 ML UDC PO ONE (09:15)
[2020-10-17 09:19] LABS: BASOPHILS % 0.5 % (0.0-1.0); HEMATOCRIT 32.6 % (34.2-44.1); HEMOGLOBIN 11.1 g/dL (12.0-16.0); LYMPHOCYTES # (AUTO) 0.3 (1.0-3.2); LYMPHOCYTES % 17.3 % (18.0-39.1); MEAN CORPUSCULAR HEMOGLOBIN 28.6 pg (28-32); MONOCYTES # (AUTO) 0.2 (0.2-0.8); MONOCYTES % 8.6 % (4.4-11.3); NEUTROPHILS # (AUTO) 1.4 (2.1-6.9); NEUTROPHILS % 71.1 % (38.7-80.0); PLATELET COUNT 155 x10e3/uL (140-360); RED BLOOD COUNT 3.88 x10e6/uL (3.6-5.1); RED CELL DISTRIBUTION WIDTH 13.3 % (11.7-14.4)
[2020-10-17 09:37] LABS: ALANINE AMINOTRANSFERASE 121 IU/L (0-55); ALBUMIN/GLOBULIN RATIO 0.9 (0.8-2.0); ALKALINE PHOSPHATASE 156 IU/L (40-150); ANION GAP 14.4 mmol/L (8-16); BLOOD UREA NITROGEN 12 mg/dL (7-26); BUN/CREATININE RATIO 15 (6-25); CARBON DIOXIDE 23 mmol/L (22-29); CHLORIDE 104 mmol/L (98-107); CREATININE, SERUM 0.79 mg/dL (0.57-1.11); EST GLOMERULAR FILTRATION RATE > 60 ML/MIN (60-); GLUCOSE 126 mg/dL (74-118); LIPASE 35 U/L (8-78); MAGNESIUM 1.9 MG/DL (1.3-2.1); POTASSIUM 3.4 mmol/L (3.5-5.1); SODIUM 138 mmol/L (136-145)
[2020-10-17 10:52] LABS: EOSINOPHILS % (MANUAL) 2 % (0-7); LYMPHOCYTES % (MANUAL) 11 % (19-48); METAMYELOCYTES % (MANUAL) 1 % (0-0); MONOCYTES % (MANUAL) 8 % (3.4-9.0); NEUTROPHILS % (MANUAL) 74 % (40-74); PLATELET ESTIMATE ADEQUATE; PLATELET MORPHOLOGY COMMENT NORMAL; RBC MORPHOLOGY COMMENT NORMAL
== END 2020-10-17 12:21 | disposition home or self-care (01) ==
LOC: ER 09:19
DX: B37.0 Candidal stomatitis (principal); R11.2 Nausea with vomiting, unspecified; K21.9 Gastro-esophageal reflux disease without esophagitis; B20 Human immunodeficiency virus [HIV] disease; F43.10 Post-traumatic stress disorder, unspecified
CPT/HCPCS: 36415; 80053; 83690; 83735; 85025; 99284; C9113; J1450; J2405; J7030

== ENCOUNTER 2020-12-07 08:40 | Emergency (ER) | payer MEDICARE ==
[~2020-12-07] VITALS: Ht 152.4 cm; Wt 79.4 kg
[2020-12-07] MEDS ORDERED: SODIUM CHLORIDE 0.9% 1000ML 1,000 ML IV STA (08:54)
[2020-12-07] MEDS ORDERED: ACETAMINOPHEN 325 MG TAB PO STA (08:59)
[2020-12-07] MEDS ORDERED: IOPAMIDOL 370 MG/ML 200 ML INFUS..BTL INJ ONE (09:14)
[2020-12-07] MEDS ORDERED: SODIUM CHLORIDE 0.9% 50ML 50 ML ONE (09:14)
[2020-12-07 09:25] LABS: BASOPHILS % 0.5 % (0.0-1.0); EOSINOPHILS # (AUTO) 0.1 (0.0-0.4); EOSINOPHILS % 3.2 % (0.0-6.0); HEMATOCRIT 29.2 % (34.2-44.1); HEMOGLOBIN 9.6 g/dL (12.0-16.0); LYMPHOCYTES # (AUTO) 0.3 (1.0-3.2); LYMPHOCYTES % 18.3 % (18.0-39.1); MEAN CORPUSCULAR HGB CONC 32.9 g/dL (31-35); MEAN CORPUSCULAR VOLUME 85.1 fL (81-99); MONOCYTES # (AUTO) 0.2 (0.2-0.8); MONOCYTES % 8.6 % (4.4-11.3); NEUTROPHILS # (AUTO) 1.3 (2.1-6.9); NEUTROPHILS % 68.9 % (38.7-80.0); PLATELET COUNT 157 x10e3/uL (140-360); RED BLOOD COUNT 3.43 x10e6/uL (3.6-5.1); RED CELL DISTRIBUTION WIDTH 14.7 % (11.7-14.4)
[2020-12-07] MEDS ORDERED: LEVOFLOXACIN 750MG/D5W 150ML 150 ML IV STA (09:55)
[2020-12-07] MEDS ORDERED: FAMOTIDINE 20 MG/2 ML VIAL IV STA (09:57)
[2020-12-07 10:01] LABS: ALANINE AMINOTRANSFERASE 196 IU/L (0-55); ALKALINE PHOSPHATASE 238 IU/L (40-150); BLOOD UREA NITROGEN 11 mg/dL (7-26); BUN/CREATININE RATIO 14 (6-25); CALCIUM 8.6 mg/dL (8.4-10.2); CARBON DIOXIDE 25 mmol/L (22-29); CHLORIDE 102 mmol/L (98-107); CREATINE KINASE 33 IU/L (29-168); CREATININE, SERUM 0.78 mg/dL (0.57-1.11); EST GLOMERULAR FILTRATION RATE > 60 ML/MIN (60-); GLUCOSE 101 mg/dL (74-118); SODIUM 135 mmol/L (136-145)
[2020-12-07 10:12] LABS: BAND NEUTROPHILS % (MANUAL) 1 %; EOSINOPHILS % (MANUAL) 1 % (0-7); LYMPHOCYTES % (MANUAL) 13 % (19-48); MONOCYTES % (MANUAL) 7 % (3.4-9.0); NEUTROPHILS % (MANUAL) 78 % (40-74); PLATELET ESTIMATE ADEQUATE; PLATELET MORPHOLOGY COMMENT NORMAL; RBC MORPHOLOGY COMMENT NORMAL
[2020-12-07] MEDS ORDERED: DIFLUCAN100 MG PO (10:22)
== END 2020-12-07 10:40 | disposition home or self-care (01) ==
LOC: ER 08:50
DX: R10.13 Epigastric pain (principal); R11.2 Nausea with vomiting, unspecified; R05 Cough; B37.9 Candidiasis, unspecified; R74.01 Elevation of levels of liver transaminase levels; B20 Human immunodeficiency virus [HIV] disease; F43.10 Post-traumatic stress disorder, unspecified; Z87.442 Personal history of urinary calculi; Z20.822 Contact with and (suspected) exposure to COVID-19
CPT/HCPCS: 36415; 71045; 74177; 80053; 82550; 82553; 83605; 83690; 84484; 85025; 87040; 99284; J7030; Q9967; U0002

== ENCOUNTER → 2021-02-03 | Outpatient (CLI) | payer MEDICARE ==
[~2021-02-03] MED LIST changes: +DIFLUCAN100 MG PO
== END ==
LOC: CT 07:42
PROVIDERS: ATTEND Internal Medicine
DX: H53.2 Diplopia (principal)
CPT/HCPCS: 70450

== ENCOUNTER 2022-09-18 14:29 | Emergency (ER) | payer MEDICARE ==
[~2022-09-18] VITALS: Ht 154.9 cm; Wt 79.4 kg
[~2022-09-18 14:29] MED LIST changes: +CARAFATE1 GM/10 ML PO; +PEPCID20 MG PO
[2022-09-18 15:42] LABS: BASOPHILS % 0.3 % (0.0-1.0); EOSINOPHILS # (AUTO) 0.1 (0.0-0.4); EOSINOPHILS % 1.6 % (0.0-6.0); HEMATOCRIT 35.8 % (34.2-44.1); HEMOGLOBIN 11.9 g/dL (12.0-16.0); LYMPHOCYTES # (AUTO) 0.7 (1.0-3.2); LYMPHOCYTES % 18.8 % (18.0-39.1); MEAN CORPUSCULAR HEMOGLOBIN 29.5 pg (28-32); MEAN CORPUSCULAR HGB CONC 33.2 g/dL (31-35); MEAN CORPUSCULAR VOLUME 88.8 fL (81-99); MONOCYTES # (AUTO) 0.3 (0.2-0.8); MONOCYTES % 7.5 % (4.4-11.3); NEUTROPHILS # (AUTO) 2.7 (2.1-6.9); NEUTROPHILS % 71.3 % (38.7-80.0); PLATELET COUNT 246 x10e3/uL (140-360); RED BLOOD COUNT 4.03 x10e6/uL (3.6-5.1); RED CELL DISTRIBUTION WIDTH 13.8 % (11.7-14.4)
[2022-09-18 16:03] LABS: ALBUMIN/GLOBULIN RATIO 0.9 (0.8-2.0); ANION GAP 15.6 mmol/L (8-16); CALCIUM 9.2 mg/dL (8.4-10.2); CREATININE, SERUM 0.77 mg/dL (0.57-1.11); POTASSIUM 3.6 mmol/L (3.5-5.1)
[2022-09-18] MEDS ORDERED: DONNATAL/LIDOCAINE/MAALOX 30 ML SUSP PO ONE (16:30)
[2022-09-18 16:40] LABS: CLARITY,URINE SL CLOUDY (CLEAR); COLOR,URINE YELLOW (YELLOW); KETONES,URINE NEGATIVE (NEGATIVE); LEUKOCYTE ESTERASE ,URINE NEGATIVE (NEGATIVE); PROTEIN,URINE DIPSTICK NEGATIVE (NEGATIVE); URINE UROBILINOGEN 0.2 mg/dL (0.2 - 1)
[2022-09-18 16:51] LABS: AMORPHOUS SEDIMENT,URINE MODERATE (FEW); BACTERIA,URINE FEW /HPF; EPITHELIAL CELLS,URINE FEW /LPF; NITRITE,URINE NEGATIVE (NEGATIVE); RBC,URINE 0-5 /HPF (0-5)
[2022-09-18 18:50] VITALS: BP 132/78
== END 2022-09-18 18:52 | disposition home or self-care (01) ==
LOC: ER 14:35
DX: R10.9 Unspecified abdominal pain (principal); Z46.6 Encounter for fitting and adjustment of urinary device; B20 Human immunodeficiency virus [HIV] disease; F43.10 Post-traumatic stress disorder, unspecified
CPT/HCPCS: 36415; 80053; 81001; 83690; 85025; 99284; U0002

== ENCOUNTER 2022-12-24 16:23 | Emergency (ER) | payer MEDICARE ==
[~2022-12-24] VITALS: Ht 154.9 cm; Wt 63.5 kg
[2022-12-24] MEDS ORDERED: SODIUM CHLORIDE 0.9% 1000ML 1,000 ML IV STA (16:28)
[2022-12-24] MEDS ORDERED: ONDANSETRON HCL INJ 2MG/ML 2ML 2 MG/ML VIAL IV PRN (16:30)
[2022-12-24] MEDS ORDERED: DICYCLOMINE HCL 20 MG/2 ML VIAL IM ONE (16:30)
[2022-12-24] MEDS ORDERED: KETOROLAC TROMETHAMINE 30 MG/ML VIAL IV STA (16:49)
[2022-12-24 16:50] LABS: BASOPHILS % 0.4 % (0.0-1.0); EOSINOPHILS % 0.8 % (0.0-6.0); HEMATOCRIT 35.5 % (34.2-44.1); HEMOGLOBIN 12.1 g/dL (12.0-16.0); LYMPHOCYTES # (AUTO) 1.2 (1.0-3.2); LYMPHOCYTES % 25.9 % (18.0-39.1); MEAN CORPUSCULAR HEMOGLOBIN 29.1 pg (28-32); MEAN CORPUSCULAR HGB CONC 34.1 g/dL (31-35); MEAN CORPUSCULAR VOLUME 85.3 fL (81-99); MONOCYTES # (AUTO) 0.2 (0.2-0.8); MONOCYTES % 4.6 % (4.4-11.3); NEUTROPHILS # (AUTO) 3.2 (2.1-6.9); NEUTROPHILS % 68.1 % (38.7-80.0); PLATELET COUNT 235 x10e3/uL (140-360); RED BLOOD COUNT 4.16 x10e6/uL (3.6-5.1); RED CELL DISTRIBUTION WIDTH 13.2 % (11.7-14.4)
[2022-12-24] MEDS ORDERED: METOCLOPRAMIDE HCL 10 MG/2ML VIAL IV ONE (17:00)
[2022-12-24] MEDS ORDERED: DIPHENHYDRAMINE HCL 25 MG CAP PO ONE (17:00)
[2022-12-24 17:11] LABS: ALBUMIN 4.1 g/dL (3.5-5.0); ALBUMIN/GLOBULIN RATIO 0.9 (0.8-2.0); ANION GAP 13.2 mmol/L (8-16); CALCIUM 9.9 mg/dL (8.4-10.2); CREATININE, SERUM 0.87 mg/dL (0.57-1.11); POTASSIUM 4.2 mmol/L (3.5-5.1)
[2022-12-24] MEDS ORDERED: IOPAMIDOL 370 MG/ML 100 ML INFUS..BTL INJ ONE (17:23)
[2022-12-24 17:35] LABS: AMPHETAMINES SCREEN,URINE NEGATIVE (NEGATIVE); CLARITY,URINE CLEAR (CLEAR); COLOR,URINE YELLOW (YELLOW); KETONES,URINE NEGATIVE (NEGATIVE); LEUKOCYTE ESTERASE ,URINE SMALL (NEGATIVE); NITRITE,URINE NEGATIVE (NEGATIVE); PHENCYCLIDINE SCREEN,URINE NEGATIVE (NEGATIVE); PROTEIN,URINE DIPSTICK NEGATIVE (NEGATIVE); URINE UROBILINOGEN 0.2 mg/dL (0.2 - 1)
[2022-12-24 17:36] LABS: BENZODIAZEPINES SCREEN,URINE NEGATIVE (NEGATIVE)
[2022-12-24 17:43] LABS: BACTERIA,URINE MODERATE /HPF; EPITHELIAL CELLS,URINE MANY /LPF
[2022-12-24] MEDS ORDERED: ONDANSETRON ODT4 MG PO (19:58)
[2022-12-24 20:07] VITALS: O2SAT 100
== END 2022-12-24 21:18 | disposition home or self-care (01) ==
LOC: ER 16:29
DX: R10.9 Unspecified abdominal pain (principal); R11.0 Nausea; F43.10 Post-traumatic stress disorder, unspecified; Z87.442 Personal history of urinary calculi; Z79.899 Other long term (current) drug therapy; Z21 Asymptomatic human immunodeficiency virus [HIV] infection status
CPT/HCPCS: 36415; 70450; 74176; 80053; 80307; 81001; 83690; 85025; 93005; 99284; C9113; J0500; J1885; J2405; J2765; J7030; Q9967